=== PATIENT | female | born 1980 | race Caucasian/White ===

== ENCOUNTER → 2018-06-02 07:50 | Outpatient (CLI) | payer OTHER, SELFPAY ==
[2018-06-02 07:59] LABS: Basophils # 0.1 K/mm3 (0-0.2); Basophils % 0.9 % (0.1-2.0); Eosinophils # 0.2 K/mm3 (0.0-0.4); Eosinophils % 2.6 % (0.1-12.0); Hematocrit 40.2 % (37.0-47.0); Hemoglobin 13.5 g/dL (12.2-16.2); Lymphocytes # 1.6 K/mm3 (0.7-4.5); Lymphocytes % 25.8 % (10-50); Mean Corpuscular HGB Conc 33.5 g/dL (31.8-35.4); Mean Corpuscular Hemoglobin 31.3 pg (27.0-31.2); Mean Corpuscular Volume 93.4 fl (81-99); Mean Platelet Volume 7.1 fl (7.4-10.4); Monocytes # 0.2 K/mm3 (0.1-1.0); Monocytes % 3.4 % (1.7-9.3); Neutrophils % 67.3 % (37.0-80.0); Platelet Count 340 K/mm3 (142-424); Red Blood Count 4.31 M/mm3 (4.20-5.40); Red Cell Distribution Width 12.4 % (11.5-17.5)
[2018-06-02 09:23] LABS: Alanine Aminotransferase 37 U/L (12-78); Albumin Level 3.8 gm/dL (3.4-5.0); Alkaline Phosphatase 44 U/L (46-116); Anion Gap 17.1 mEq/L (5-15); Aspartate Amino Transferase 16 U/L (15-37); Bilirubin,Total 0.3 mg/dL (0.2-1.0); Blood Urea Nitrogen 11 mg/dL (7-18); Carbon Dioxide 25 mmol/L (21.0-32.0); Chloride 102 mmol/L (98-107); Chol/HDL Ratio 4.1 (1-3.5); Cholesterol 200 mg/dL (140-200); Creatinine,Serum 0.75 mg/dL (0.55-1.02); Estimated Glomerular Filt Rate 86 ml/min (>60); GFR (African American) 104 ML/MIN (>60); Globulin 3.8 gm/dl (1.3-3.2); Glucose 83 mg/dL (74-106); HDL Cholesterol 49 mg/dL (29-89); LDL Cholesterol 126 mg/dL (0-130); Potassium 4.1 mmoL/L (3.5-5.1); Sodium 140 mmol/L (136-145); T4 (Thyroxine) 7.8 ug/dl (4.7-13.3); Thyroid Stimulating Hormone 1.63 uIU/ml (0.358-3.740); Total Protein,Serum 7.6 gm/dL (6.4-8.2); Triglycerides 125 mg/dL (30-200); VLDL Cholesterol 25 mg/dL (0-40)
== END ==
PROVIDERS: Visit Provider Nurse Practitioner Family
DX: E66.9 Obesity, unspecified (principal)
CPT/HCPCS: 36415; 80053; 80061; 82652; 84436; 84443; 85025

== ENCOUNTER → 2018-06-08 19:03 | Outpatient (CLI) | payer OTHER, SELFPAY ==
[2018-06-08 22:23] LABS: Amphetamine/Metha Screen,Urine Negative ng/mL (<1000); Barbiturates Screen,Urine Negative ng/mL (<200); Benzodiazepines Screen,Urine Negative ng/mL (<200); Cannabinoid Screen,Urine Negative ng/mL (<50); Cocaine Screen,Urine Negative ng/mL (<300); Methadone Screen,Urine Negative ng/mL (<300); Opiate Screen,Urine Negative ng/mL (<300); Phencyclidine Screen,Urine Negative ng/mL (<25)
== END ==
PROVIDERS: Visit Provider Nurse Practitioner Family
DX: Z79.899 Other long term (current) drug therapy (principal)
CPT/HCPCS: 80305

== ENCOUNTER → 2018-06-13 08:14 | Outpatient (CLI) | payer OTHER, SELFPAY ==
--- NOTE | 2018-06-13 08:17 | US_ITS ---
ULTRASOUND THYROID HISTORY: Thyroid enlarged Follow-up thyroid nodule PROCEDURE: Multiple sagittal & transverse ultrasound images of the thyroid.. COMPARISON: 08/31/2014 thyroid ultrasound ----- FINDINGS: Thyroid gland upper normal in size bilaterally Single very small nodule bilaterally. Otherwise. Inhomogeneous gland , Borderline thyroid enlargement Thyroid gland upper normal size RIGHT LOBE: 4 cm length as 1.7 cm wide x 1.4 cm in AP Nodule A: Barely appreciable Vague solid nodule 4.3 mm at upper pole right lobe.. This is not appreciated are seen on previous study. . LEFT LOBE: 4 cm length x 1.5 cm wide x 1.4 cm AP Nodule A: Tiny 3.1 mm likely debris-filled cyst or or semisolid nodule. Midportion left lobe.- This seems to match the 3.75mm area noted on 2014 study. Small and can be followed.: ISTHMUS: Normal thickness. 4.1 mm AP. IMPRESSION 1. Borderline thyroid enlargement ... Thyroid gland upper normal size 2. Small vague 1.3 mm nodule upper pole right lobe. Small debris 3.1 mm filled cyst midportion left lobe
== END ==
PROVIDERS: PCP Nurse Practitioner Family; Visit Provider Nurse Practitioner Family
DX: E04.9 Nontoxic goiter, unspecified (principal)
CPT/HCPCS: 76536

== ENCOUNTER 2025-01-18 09:14 | Outpatient (CLI) | payer BC, SELFPAY ==
--- OUTSIDE RECORDS SUMMARY | 2024-12-24 20:00 | XMS_ITS | Encounter Summary ---
Author Name [facility] Organization [facility] Address [address] [place] [address] Support Name Relationship Address Phone IVELISSE JONES Next of Kin [phone] [address] IVELISSE JONES Emergency Contact [phone] [address] Selected Encounter This section includes the information on record at [place] for the Encounter. Date/Time Encounter Type Encounter Description Reason Pro vider Source Dec 25, 2024 12:00 AM Outpatient Encounter EVENT (HISTORICAL) IHE Encounter Template Text not used by [place]
--- OUTSIDE RECORDS SUMMARY | 2024-12-25 09:22 | XMS_ITS | Encounter Summary ---
Author Name [facility] [facility] [place] Address [address] [place] [address] Support Name Relationship Address Phone ROBERTIVELISSE Next of Kin [phone] [address] ROBERTIVELISSE Emergency Contact [phone] [address] Selected Encounter This section includes the information on record at [place] for the Encounter. Date/Time Encounter Type Encounter Description Reason Pro vider Source Dec 25, 2024 01:22 PM Outpatient Encounter TELEPHONE/MEDICINE IHE Encounter Template Text not used by [place] Encounter Notes: All associated encounter notes This section contains the clinical notes associated to the Encounter. Date/Time Encounter Note(s) Provider Source Dec 25, 2024 01:22 PM ADMINISTRATIVE NOT E: LOCAL TITLE: V9 [facility] ADMINISTRATIVE NOTE STANDARD TITLE: ADMINISTRATIVE NOTE DATE OF NOTE: DEC 25, 2024@13:22 ENTRY DATE: DEC 25, 2024@13:22:44 AUTHOR: IVELISSE ARAUZ EXP COSIGNER: URGENCY: STATUS: COMPLETED Toxic Exposure Screening: Attempts to contact [place]/caregiver to perform RY: 2 Contact type: Telephone-left message to call back Unsuccessful attempt to reach via phone to complete Toxic Exposure Screening Reminder in CPRS. HIPAA compliant message left with RY Contact Information. This is my second attempt to call to complete RY without success. /jimmy/ IVELISSE ARAUZ PHYSICIAN MACHINE SHOP INSTRUCTOR Signed: 12/25/2024 13:24 IVELISSE ARAUZ-CDD [facility]
--- OUTSIDE RECORDS SUMMARY | 2025-01-18 09:17 | XMS_ITS | Continuity of Care Document ---
Author Name [facility] Organization [facility] Care Team Providers Care Machine Adjuster Leader Case Trim Name Role Phone [facility] Unavailable Unavailable Problems Combined list of problems from Department of Defense and Veterans Affairs facilities. It does not include entries that were removed or entered in error. 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 Active Condition Pre-existing dx of Chron's Dz DoD visit: ears/hearing exam for hearing conservation, treatment Active Condition DoD NORMAL PRE-EMPLOYMENT SCREENING EXAMINATION Active Condition see 2807/2808 DoD visit for: services physical Active Condition DoD Allergies, Adverse Reactions, Alerts Combined list of allergies from Department of Defense and Veterans Affairs facilities. It does not include entries that were removed or entered in error. Substance Category Reaction Severity Reaction type Status Date Reported Comments Source No Known Allergies Drug allergy (disorder) active 10/25/2007 [facility] Encounters Combined list of: 1) Encounters from Department of Veterans Affairs facilities going backup to the last 18 months, not all [facility] inpatient encounters are included; 2) Encounters from the Department of Defense facilities going backup to 280 months. Location Location Details Encounter Type Encounter Number Reason For Visit Attending Provider ADM Date DC Date Status Disposition Source MARQUISE Rodrigues([facility]) OUTPATIENT [id number] BREEZY HENLEY 09/04 Released w/o Limitations [facility]) [facility] [id number] JUN OJEDA 09/04 Released w/o Limitations [facility] MARQUISE Rodrigues([facility]) OUTPATIENT [id number] PART 1 OF YOSELIN AKINS 09/04 Released w/o Limitations MARQUISE Rodrigues(Medi triny Examina tion) MARQUISE Rodrigues(Medica l Examin[facility] on) OUTPATIENT [id number] CONCHITA LAYNE 09/04 Released w/o Limitations [facility] [place](Medi triny Examina tion) [facility] Outpatient Encounter [id number] 10/25 [place] [facility] Outpatient Encounter [id number] 10/25 [place] [facility] Outpatient Encounter [id number] 12/25 [place] [facility] Outpatient Encounter [id number] 12/25 [place] [facility] Procedures Combined list of: 1) Procedures from Department of [facility] Affairs facilities [facility], not all [place] non-surgical procedures are included; 2) All procedures from the Department of Defense facilities. Procedure Procedure Type Code Date Perfomer Comments Sour e AUDIOMETRIC TESTING OF GROUPS 09/05/2007 [facility] SCREENING TEST OF VISUAL ACUITY, QUANTITATIVE, BILATERAL 09/05/2007 [facility] SCREENING PAPANICOLAOU SMEAR; OBTAINING, PREPARING AND CONVEYANCE OF CERVICAL OR VAGINAL SMEAR TO LABORATORY 07/07/2005 [facility] SCREENING TEST OF VISUAL ACUITY, QUANTITATIVE, BILATERAL 07/01/2005 [facility] ARTHROCENTESIS, ASPIRATION AND/OR INJECTION, SMALL JOINT OR BURSA (EG, FINGERS, TOES); WITHOUT ULTRASOUND GUIDANCE 04/14/2005 [facility] SCREENING PAPANICOLAOU SMEAR; OBTAINING, PREPARING AND CONVEYANCE OF CERVICAL OR VAGINAL SMEAR TO LABORATORY 04/10/2005 [facility] Audiometry Group Testing Audiometry Group Testing [id number] 09/05/2007 JUN OJEDA DoD Threshold Audiogram (Pure Tone) Threshold Audiogram (Pure Tone) [id number] 09/05/2007 JUN OJEDA DoD Screening Test Of Visual Acuity, Quantitative, Bilateral Screening Test Of Visual Acuity, Quantitative, Bilateral [id number] 09/05/2007 BREEZY WALDROP [facility] Social History Combined list of available smoking, tobacco, and other social history from Department of Defense and Veterans Affairs facilities. Social History Type Response Date Comment [facility] danelle This section is an empty social history section. DoD
--- OUTSIDE RECORDS SUMMARY | 2025-01-18 09:19 | XMS_ITS | Data Portability ---
Author Organization [facility] Address [address] [place] [address] Assessment Encounter Date Assessment Date Assessment LastModified by Organization Details LastModified Time 12/08/2022 12/08/2022 Reproductive life plan discussed. Patient does not plan to have children in the future. Not available 12/08/2022 19:16:51 Plan of Treatment Reminders Order Date Submit Date Provider Last Modified By Organization Details Last Modified Time Details Appointments ANNUAL NURSE LEADER 20 min 2024 03:00P M Guadalupe Almendarez APRN Not available Not available Not available Lab cytology report, thin prep, smear or scraping, cervical or vaginal 2023 024 [facility], [address] [place], [address], 01/21/2024 09:15:48 cytology report, thin prep, smear or scraping, cervical or vaginal 2022 023 ARN[facility], [address], [address], [place], [address], 12/10/2022 09:14:01 lh + FSH, serum 2021 022 ARNEL [facility], [address], [address], [place], [address], 02/28/2022 10:36:24 TSH + free T4, serum 2021 022 ARNEL [facility], [address] [place], [address], 02/28/2022 10:36:23 HbA1c (hemoglob in A1c), blood 2021 022 ARNEL [facility], [address], [address], [place], [address], 02/28/2022 10:36:24 insulin, serum 2021 022 ARNEL [facility], [address], [place], [address], 02/28/2022 10:36:25 Referral None recorded. Procedures None recorded. Surgeries None recorded. Imaging MAMMO, screening , bilateral - already scheduled 01/31/242023 024 [email or web address] [facility] ([facility]), [facility] [address], [place], [address], 02/23/2024 13:40:15 MAMMO, screening , bilateral 2022 023 [email or web address] [facility] ([facility]), [facility] [address], [place], [address], 02/11/2023 15:08:57 Medication Orders Lo Loestrin Fe 1 mg-10 mcg (24)/10 mcg (2) tablet 2023 024 ARNEL [facility], [address], [address], [place], [address], 01/18/2024 16:42:23 Lo Loestrin Fe 1 mg-10 mcg (24)/10 mcg (2) tablet 2023 024 ARNEL [facility], [address], [address], [place], [address], 08/31/2023 09:29:34 Lo Loestrin Fe 1 mg-10 mcg (24)/10 mcg (2) tablet 2022 023 ARNEL [facility], [address], [address], [place], [address], 06/01/2023 15:10:54 Lo Loestrin Fe 1 mg-10 mcg (24)/10 mcg (2) tablet 2022 023 [facility], [address] [place] [address], [place], [address], 06/01/2023 15:13:26 Patient TargetsNo targets recorded. Patient Instructions Encounter Date Encounter Id Patient Instructions Last Modified By Organization Details Last Modified Time 02/27/2022 [id number] Hormonal labs drawn today. Not available 03/02/2022 11:11:03 1. Treatment options for heavy menstrual bleeding and painful cycles discussed including regular dosed NSAIDS, initiating hormonal therapy, inserting a progestin releasing IUD, minor surgery (D&C, endometrial ablation) and major surgery (hysterectomy). Risks, benefits, and alternatives to all therapies discussed. She chooses expectant management. Follow up in May for ultrasound and possible endometrial bx if her cycle has not regulated on its own. 2. We will call abnormal test results in 7-10 days. Patient is advised that normal test results will be retrievable through [facility] and that they will be notified of the availability of normal results from [facility] by phone call, text or email. Not available 03/02/2022 11:10:48 12/08/2022 [id number] medical record request* - Please send most recent colonoscopy [email or web address] Not available 01/20/2023 11:20:32 1. Schedule screening mammogram at [facility]. 2. Get copy of most recent colonoscopy. Not available 12/08/2022 19:23:03 We will call abnormal test results in 7-10 days. Patient is advised that normal test results will be retrievable through [facility] Patient [facility] and that they will be notified of the availability of normal results from [facility] by phone call, text or email. Not available 12/08/2022 19:23:20 06/01/2023 [id number] 1. Treatment options for heavy menstrual bleeding and painful cycles discussed including regular dosed NSAIDS, initiating hormonal therapy, inserting a progestin releasing IUD, minor surgery (D&C, endometrial ablation) and major surgery (hysterectomy). Risks, benefits, and alternatives to all therapies discussed. She chooses oral contraceptives. Wednesday start instructions discussed. Office samples x 1 given. Follow up in 3 months. 2. Risks of hormonal control reviewed, including but not limited to thrombosis, embolism, pulmonary embolism, stroke, disability, sexual dysfunction & . Patient understands these risk are increased with smoking. Patient understands that these risks may be increased when using the patch (Ortho-Evra) or the vaginal ring (Nuva-Ring) when compared to oral control pills. Risks of bone loss with Depo Provera also reviewed. All questions answered. Pt understands & accepts risks. Instructions/warn ing signs given. Not available 06/01/2023 22:00:04 08/31/2023 [id number] Continue LoLoestrin. Follow up in November for annual obstetrician gynecologist exam. Not available 08/31/2023 09:36:45 01/18/2024 [id number] learning about healthy weight Not available 01/18/2024 17:03:15 body mass index: care instructions Not available 01/18/2024 17:03:15 1. Continue LoLoestrin. 2. Screening mammogram scheduled for January at [facility]. 3. Colonoscopy is current. Not available 01/18/2024 16:59:50 1. Risks of hormonal control reviewed, including but not limited to thrombosis, embolism, pulmonary embolism, stroke, disability, sexual dysfunction & . Patient understands these risk are increased with smoking. Patient understands that these risks may be increased when using the patch (Ortho-Evra) or the vaginal ring (Nuva-Ring) when compared to oral control pills. Risks of bone loss with Depo Provera also reviewed. All questions answered. Pt understands & accepts risks. Instructions/warn ing signs given. 2. We will call abnormal test results in 7-10 days. Patient is advised that normal test results will be retrievable through [facility] Patient Portal and that they will be notified of the availability of normal results from [facility] by phone call, text or email. Not available 01/18/2024 16:59:30 Reason for Referral None Reported. Results Created Date Observation Date Name Description Value Unit Range Abnormal Flag Note LastModifiedBy Organization Detail LastModifiedTime 02/28/2002/28/2022 TSH+F REE T4 TSH 1.690 uIU/m L 0.450- 4.500 Not Available [facility] ([facility]) [address] [place], [address], 02/28/2022 10:36:23 02/28/20 22 02/28/2022 TSH+F REE T4 T4,free(dire ct) 1.00 NG/dL 0.82-1 .77 Not Available [facility] ([facility]) [address] [place], [address], 02/28/2022 10:36:23 02/28/20 22 02/28/2022 FSH AND LH LH 55.1 mIU/m L Adult Femal e: Folli cular phase 2.4 - 12.6 Ovula tion phase 14.0 - 95.6 Lutea l phase 1.0 - 11.4 Postm enopa usal 7.7 - 58.5 Not Available [facility] ([facility]) [address] [place], [address], 02/28/2022 10:36:24 02/28/20 22 02/28/2022 FSH AND LH FSH 89.9 mIU/m L Adult Femal e: Folli cular phase 3.5 - 12.5 Ovula tion phase 4.7 - 21.5 Lutea l phase 1.7 - 7.7 Postm enopa usal 25.8 - 134.8 Not Available [facility] ([facility]) [address] [place], [address], 02/28/2022 10:36:24 02/28/20 22 02/28/2022 HEMOG LOBIN A1C hemoglobin A1C 5.3 % 4.8-5. 6 Predi abete s: 5.7 - 6.4 Diabe elvin: >6.4 Glyce becky contr ol for adult s with diabe elvin: <7.0 Not Available [facility] ([facility]) [address] [place], [address], 02/28/2022 10:36:24 02/28/20 22 02/28/2022 INSUL IN insulin 6.9 uIU/m L 2.6-24 .9 Not Available [facility] ([facility]) [address] [place], [address], 02/28/2022 10:36:25 12/09/19 23 12/10/2022 IGP, APTIM A HPV, RFX 16/18 ,45 diagnosis: Elise ROQUE FOR INTRA EPITH ELIAL SABRA Fine OR ABUNDIO BORDEN . Not Available [facility] ([facility]) [address] [facility], [place], [address], 12/10/2022 09:14:01 12/09/19 23 12/10/2022 IGP, APTIM A HPV, RFX 16/18 ,45 specimen adequacy: Elise siddiqui Satis facto ry for evalu ation . Endoc ervic al and/o r squam ous metap lasti c cells (endo cervi triny compo nent) are prese nt. Not Available [facility] ([facility]) [address] [facility], [place], [address], 12/10/2022 09:14:01 12/09/1912/10/2022 IGP, APTIM A HPV, RFX 16/18 ,45 clinician provided ICD10: Elise siddiqui Z12.4 Z11.8 Not Available [facility] ([facility]) [address] [place], [address], 12/10/2022 09:14:01 12/09/19 23 12/10/2022 IGP, APTIM A HPV, RFX 16/18 ,45 performed by: Elise fine, Cytot sebastian campa t (ASCP ) Not Available [facility] ([facility]) [address] [facility], [place], [address], 12/10/2022 09:14:01 12/09/1912/10/2022 IGP, APTIM A HPV, RFX 16/18 ,45 . . Not Available [facility] ([facility]) [address] [facility], [place], [address], 12/10/2022 09:14:01 12/09/1912/10/2022 IGP, APTIM A HPV, RFX 16/18 ,45 note: Commen t The Pap smear is a scree samanta test desig kindra to aid in the detec tion of eli ligna nt and malig nant condi tions of the uteri ne cervi x. It is not a diagn ostic proce dure and shoul d not be used as the sole means of detec ting cervi triny cance r. Both false -posi tive and false -nega tive repor ts do occur . Not Available [facility] ([facility]) [address] [facility], [place], [address], 12/10/2022 09:14:01 12/09/1912/10/2022 IGP, APTIM A HPV, RFX 16/18 ,45 test methodology: Commen t This liqui d based ThinP rep(R ) pap test was scree kindra with the use of an image guide reji systdanelle m. Not Available [facility] ([facility]) [address] [facility], [place], [address], 12/10/2022 09:14:01 12/09/1912/10/2022 IGP, APTIM A HPV, RFX 16/18 ,45 HPV aptima Negati ve negati ve This nucle ic acid ampli ficat ion test detec ts fourt een high- risk HPV types (16,1 8,31, 33,35 ,39,4 5,51, 52,56 ,58,5 9,66, 68) witho ut diffe renti ation . Not Available [facility] ([facility]) [address] [facility], [place], [address], 12/10/2022 09:14:01 12/09/1912/10/2022 IGP, APTIM A HPV, RFX 16/18 ,45 HPV genotype reflex Commen t Crite carlos not met, HPV Genot ype not perfo rmed. Not Available [facility] ([facility]) [address] [facility], [place], [address], 12/10/2022 09:14:01 01/18/20 24 01/20/2024 IGP, APTIM A HPV, RFX 16/18 ,45 HPV aptima Negati ve negati ve This nucle ic acid ampli ficat ion test detec ts fourt een high- risk HPV types (16,1 8,31, 33,35 ,39,4 5,51, 52,56 ,58,5 9,66, 68) witho ut diffe joseti ation . Not Available [facility] ([facility]) [address] [facility], [place], [address], 01/21/2024 09:15:48 01/18/20 24 01/21/2024 IGP, APTIM A HPV, RFX 16/18 ,45 diagnosis: Commen t NEGAT JUDE FOR INTRA EPITH ELIAL LESIO N OR ABUNDIO BORDEN . Not Available [facility] ([facility]) [address] [facility], [place], [address], 01/21/2024 09:15:48 01/18/20 24 01/21/2024 IGP, APTIM A HPV, RFX 16/18 ,45 specimen adequacy: Commen t Satis facto ry for evalu ation . No endoc ervic al compo nent is ident ified . Not Available [facility] ([facility]) [address] [facility], [place], [address], 01/21/2024 09:15:48 01/18/20 24 01/21/2024 IGP, APTIM A HPV, RFX 16/18 ,45 clinician provided ICD10: Elise siddiqui Z12.4 Z11.5 1 Z11.8 Z11.3 Not Available [facility] ([facility]) [address] [facility], [place], [address], 01/21/2024 09:15:48 01/18/20 24 01/21/2024 IGP, APTIM A HPV, RFX 16/18 ,45 performed by: Elise vail, Meño siddiqui (ASCP ) Not Available [facility] ([facility]) [address] [place], [address], 01/21/2024 09:15:48 01/18/20 24 01/21/2024 IGP, APTIM A HPV, RFX 16/18 ,45 . . Not Available [facility] ([facility]) [address] [facility], [place], [address], 01/21/2024 09:15:48 01/18/20 24 01/21/2024 IGP, APTIM A HPV, RFX 16/18 ,45 note: Elise siddiqui The Pap smear is a scree samanta test desig kindra to aid in the detec tion of eli ligna nt and malig nant condi tions of the uteri ne cervi x. It is not a diagn ostic proce dure and shoul d not be used as the sole means of detec ting cervi triny cance r. Both false -posi tive and false -nega tive repor ts do occur . Not Available [facility] ([facility]) [address] [facility], [place], [address], 01/21/2024 09:15:48 01/18/20 24 01/21/2024 IGP, APTIM A HPV, RFX 16/18 ,45 test methodology: Elise siddiqui This liqui d based ThinP rep(R ) pap test was scree kindra with the use of an image guide d syste m. Not Available [facility] ([facility]) [address] [facility], [place], [address], 01/21/2024 09:15:48 01/18/20 24 01/21/2024 IGP, APTIM A HPV, RFX 16/18 ,45 HPV genotype reflex Commen t Crite carlos not met, HPV Genot ype not perfo rmed. Not Available [facility] ([facility]) [address] [facility], [place], [address], 01/21/2024 09:15:48 01/27/20 23 01/25/2023 - scn dig breas t tomos yn philomena [facility] Name: COSME PÉREZ [facility] [employer] Phys: Edie salinas NP, [place] [address] : 1979 Age: 42 Sex: F Acct: [id number] Loc: G.MAMM PHONE #: Exam Date: 2022 Status : DEP CLI FAX #: Rad# [id number] Unit# [id number] Admit Date: 2022 EXAMS: CPT CODE: [id number] SCN DIG BREAST TOMOSY N PHILOMENA 46189 BILATE RAL DIGITA L SCREEN ING MAMMOG CAROLA WITH CAD AND 3 D Tomosy nthesi s Person al histor y of Breast Cancer : None Family histor y of Breast Cancer : Patern al grandm other, patern al aunt and patern al cousin s Compla ints: None Compar clemencia: Multip le prior studie s. TECHNI QUE: Bilate ral digita l mammog tiffani and CAD screen ing were perfor med by Alfreda Colvin RTM. 3-D Tomosy nthesi s imagin g was also perfor med. FINDIN GS: These images demons trate a type III breast parenc hymal patter n indica ting the breast s are hetero geneou sly dense which may lower the sensit ivity of mammog tiffani. No worris ome lesion s are identi fied in either breast . IMPRES JESUSITA: Negati ve. Recomm end annual screen ing, regula r self breast examin ation and regula r clinic al breast exam. (CAT1) - CATEGO RY 1, NEGATI VE (1 YR) -1 YEAR -In the patien t with a palpab le abnorm ality, unexpl ained by breast imagin g, the palpab le abnorm ality should be manage d on a clinic al basis by the attend ing clinic minesh. -Breas t imagin g as a false negati ve rate of approx imatel y 15%. -Patie nt was notifi ed by mail of the result s of this examin ation. Patisigrid t may be called if furthe r workup is indica abdulaziz. -The patien t's inform ation was entere d into a remind er system with a target due date for the next mammog carola. -This mammog carola was review ed by a radiol ogist and CAD. This report is genera abdulaziz using voice recogn ition comput er softwa re. Inadve rtent errors may have occurr ed while dictat ing report . Common sense approa ch is apprec iated and do not hesita te to call for clarif icatio n when necess olya. 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 CC: Max García MD; [place] Dictat ed Date/T william: 2022 (1646) Techno logist : ALFREDA COLVIN (RT)(R ) Transc ribed Date/T william: 2022 (1646) Transc riptio nist: DR.HAR SISSY Rahman onic Signat ure Date/T william: 2022 (1646) Printe d Date/T william: 2022 (2935) BATCH NO: N/A PAGE 2 Signed Report CC'ed Logic: Orderi ng Provid er: EDIE Gant Attend ing Provid er: EDIE Gant Referr ing Provid er: EDIE Gant Consul ting Provid er: BILLY Fine [address] , [place], [address], 01/27/2023 09:29:41 02/01/20 24 01/31/2024 - scn dig breas t tomos yn philomena [facility] Name: COSME PÉREZ [address] [place] [address] Phys: Edie salinas 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 No breast proble ms. Sheree al grandm other, sheree al aunt, and 2 sheree al cousin s with breast carcin tiffanie Correl ation is made with prior mammog mata nichols from 023 to 11/01/19 19. FINDIN GS: Bilate ral digita l MLO and CC views with CAD and 3D tomosy nthesi s were perfor med by Sarah siddiqui RT. These demons trate scatte red fibrog landul ar densit ies, unchan ged in config uratio n from prior exams. There is no domina nt mass, aly ectura l distor tion, or suspic ious calcif icatio n, bilate rally. IMPRES JESUSITA: STABLE NEGATI VE MAMMOG MATA. RECOMM END ANNUAL SCREEN ING MAMMOG TIFFANI. CAT1 - CATEGO RY 1, NEGATI VE 1YR - 1 YEAR DISCLA DON: *The patien t with a palpab le abnorm ality, unexpl ained by breast imagin g, should be manage d on clinic al basis by the attend ing physic minesh. *Kaitlin siddiqui imagin g has a false negati ve rate of 15%. *The patien t was notifi ed by mail of the result s of this examin ation. *The patien t's inform ation was entere d into a remind er system with a target due date for the next mammog carola. *The mammog carola was review ed by a radiol ogist and CAD. 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, [place] [address] : 1979 Age: 43 Sex: F Acct: [id number] Loc: G.MAMM PHONE #: [phone] Exam Date: 2023 Status : DEP CLI FAX #: Rad# [id number] Unit# [id number] Admit Date: 2023 EXAMS: CPT CODE: [id number] SCN DIG BREAST TOMOSY N PHILOMENA 63115 CC: NO PRIMAR Y CARE PHYSIC MINESH; [place] sal[place] Dictat ed Date/T william: 2023 (1832) Techno logist : SARAH DURANET T Transc ribed Date/T william: 2023 (1831) Transc riptio nist: DR.HAG ZAKI garcia Signat ure Date/T william: 2023 (1831) Printe d Date/T william: 2023 (830) BATCH NO: N/A PAGE 2 Signed Report CC'ed Logic: Orderi ng Provid er: EDIE Reji FOX A Attend ing Provid er: EDIE D MELISS A Referr ing Provid er: EDIE Reji MELISS A Consul ting Provid er: PHYSIC MINESH NO [address] , [place], [address], 02/03/2024 15:55:51 Result Notes None recorded. Problems Name Problem SNOMED Code Status Onset Date Resolution Date Notes Provider Name and Address Organization Details Recorded Time Crohn's disease 52175341 Active 2016 Erma Garcia [place], [place] - [facility] 7 11:12:41 Uses oral contracep tion 6025903 Completed 201612/08/2022 Removal Reason: stopped Guadalupe Almendarez [employer]ER[employer] TE[employer]ER [address], [place], [address], [place] - [facility] 3 09:11:12 Long-term current use of immunosup pressive drug 760407507 Active 2023 Guadalupe AlmendarezGORDY [address], [place], [address], [place] - [facility] 4 16:58:40 Problem Notes None recorded. Procedures Surgical History Date Name Laterality Status Provider Name and Address Organization Details Recorded Time 4 Date of Last Mammogram completed Guadalupe PearsonPRISCA del castilloN [address], [place], [address], [place] - [facility] 02/03/2024 12:21:11 4 Date of Last Pap Smear completed Guadalupe PearsonPRISCA del castilloN [address], [place], [address], [place] - [facility] 01/23/2024 22:03:53 4 Date of Last Colonoscopy completed Erma CAMARILLO - [facility] 01/18/2024 16:00:55 1 completed Guadalupe Almendarez APRN [address], [place], [address], [place] - [facility] 02/18/2023 10:12:10 4 Caesarean Section completed Erma CAMARILLO - [facility] 09/25/2016 09:18:11 4 Tubal Ligation completed Erma CAMARILLO - [facility] 09:18:23 Orthopedic Surgery completed Erma CAMARILLO - [facility] 09/24/2016 11:21:43 Cryocautery of cervix completed Erma CAMARILLO - [facility] 09/24/2016 11:21:55 Imaging Results None recorded. Procedure Notes None recorded. Medical Equipment None Reported. Allergies No known drug allergies Medications Name Sig Start Date Stop Date Status Note LastModified by Organization Details LastModified Time albuterol sulfate 2.5 mg/3 mL (0.083 %) solution for nebulizat ion 08/30 completed Not Available Not Available Not Available trazodone 50 mg tablet as heeded active Not Available Not Available No t Available fluconazo le 150 mg tablet take 1 tablet (150 mg) by oral route every other day for 2 doses 10/01 completed Not Available Not Available Not Available prednison e 20 mg tablet 10/01 completed Not Available Not Available Not Available Remicade 100 mg intraveno us solution q 2 months 10/23 completed Remicade 100 mg intraven ous recon soln;com ment: med change;R ecorded Status: Recorded on: 03/31/20 08 10:05PM; Disconti nued Status: Disconti nued on: 10/24/19 09 11:31AM; User: roseanna Not Available Not Available Not Available Synalar 0.025 % topical cream apply to the affected area(s) by topical route 2 times per day for 14 days 08/22 completed Synalar 0.025 % topical cream;Re corded Status: Recorded on: 08/22/19 16 9:26AM;D iscontin ued Status: Disconti nued on: 08/22/19 16 9:57AM;U ser: [email or web address]; Est. Completi on: 09/05/19 16 Not Available Not Available Not Available amoxicill in 875 mg tablet 10/01 completed Not Available Not Available Not Available oseltamiv ir 75 mg capsule 08/30 completed Not Available Not Available Not Available polyethyl keisha glycol 3350 17 gram/dose oral powder 10/01 completed Not Available Not Available Not Available scopolami ne 1 mg over 3 days transderm al patch 06/01 completed Not Available Not Available Not Available ondansetr on 4 mg disintegr ating tablet 10/01 completed Not Available Not Available Not Available cefdinir 300 mg capsule 10/01 completed Not Available Not Available Not Available Asacol 400 mg tablet,de layed release 10/18 completed Asacol 400 mg;Recor ded Status: Recorded on: 03/31/20 08 10:04PM; Disconti nued Status: Disconti nued on: 10/19/19 12 3:42PM;U ser: [email or web address] Not Available Not Available Not Available Sprintec (28) 0.25 mg-0.035 mg tablet take 1 tablet by oral route once daily for 28 days 09/01 completed Sprintec (28) 0.25-35 mg-mcg oral tablet;R ecorded Status: Recorded on: 08/22/19 16 9:46AM;D iscontin ued Status: Disconti nued on: 09/02/19 16 10:48AM; User: [email or web address] ;Est. Completi on: 08/20/19 17;Indic ation: Pregnanc y Contrace ption - ([id number].[id number]);Prin abdulaziz: 08/22/19 16 Not Available Not Available Not Available TriNessa (28) 0.18 mg(7)/0.2 15 mg(7)/0.2 5 mg(7)-35 mcg tablet 1 po qd 10/24 completed TriNessa (28) 0.18/0.2 15/0.25 mg-35 mcg (28) oral tablet;R ecorded Status: Recorded on: 03/31/20 08 10:05PM; Disconti nued Status: Disconti nued on: 10/25/19 10 2:25PM;U ser: [email or web address] Not Available Not Available Not Available Canasa 1,000 mg rectal supposito ry 10/20 completed Canasa 1,000 mg rectal supposit ory;Jd rded Status: Recorded on: 10/19/19 12 3:42PM;D iscontin ued Status: Disconti nued on: 10/21/19 13 9:03AM;U ser: [email or web address] Not Available Not Available Not Available Humira Pen 40 mg/0.8 mL subcutane ous kit inject 0.8 millilit er (40 mg) by subcutan eous route every 2 weeks active Not Available Not Available No t Available Jolessa 0.15 mg-30 mcg (91) tablets,3 month dose pack take 1 tablet by oral route once daily for 84 days 10/20 completed Jolessa 0.15-30 mg-mcg oral tablets, dose pack,3 month;Re corded Status: Recorded on: 10/19/19 12 4:03PM;D iscontin ued Status: Disconti nued on: 10/21/19 13 8:56AM;U ser: [email or web address] ; Completi on: 09/20/19 13;Print ed: 10/19/19 12 Not Available Not Available Not Available Lialda 1.2 gram tablet,de layed release take 2 tablets (2.4 gram) by oral route once daily with a meal 12/24 completed Lialda 1.2 gram oral tablet,d elayed release (/EC); Recorded Status: Recorded on: 10/19/19 12 3:42PM;D iscontin ued Status: Disconti nued on: 12/25/19 15 12:01PM; User: [email or web address] Not Available Not Available Not Available LoSeasoni que 0.1 mg-20 mcg (84)/10 mcg (7) tablets,3 month dose pack Take 1 tablet every day by oral route. 01/04 completed Not Available Not Available Not Available GaviLyte- N 420 gram oral solution 10/01 completed Not Available Not Available Not Available sodium,po tassium,m ag sulfates 17.5 gram-3.13 gram-1.6 gram oral soln take as directed by Dr. Ricci's office 01/17 completed Not Available Not Available Not Available Lo Loestrin Fe 1 mg-10 mcg (24)/10 mcg (2) tablet Take 1 tablet every day by oral route for 28 days. 2024 active Not Available Not Available Not Avai lable Camrese 0.15 mg-30 mcg (84)/10 mcg(7) tablets,3 month dose pack TAKE 1 TABLET BY MOUTH EVERY DAY 02/27 completed Not Available Not Available Not Available Vitals Date Recorded Body height Body mass index (BMI) Body weight Pain severity - 0-10 verbal numeric rating [Score] - Reported Systolic And Diastolic Provider Name and Address Organization Details Last Updated DateTime 08/31/2023 154.94 cm 29.3 kg/m2 93450.82 g 0 120/70 mm[Hg] Erma Garcia [facility] 4 09:20:17 Date Recorded Body height Body mass index (BMI) Body weight Pain severity - 0-10 verbal numeric rating [Score] - Reported Systolic And Diastolic Provider Name and Address Organization Details Last Updated DateTime 12/08/2022 154.94 cm 28.9 kg/m2 89940.35 g 0 120/70 mm[Hg] Erma Garcia [facility] 3 08:56:25 Date Recorded Body height Body mass index (BMI) Body weight Pain severity - 0-10 verbal numeric rating [Score] - Reported Systolic And Diastolic Provider Name and Address Organization Details Last Updated DateTime 01/18/2024 154.94 cm 30.2 kg/m2 28957.78 g 0 114/70 mm[Hg] Erma Garcia [facility] 4 16:04:56 Date Recorded Body height Body mass index (BMI) Body weight Systolic And Diastolic Provider Name and Address Organization Details Last Updated DateTime 02/27/2022 154.94 cm 30.2 kg/m2 30105.78 g 114/60 mm[Hg] Alison Alvarez [facility] 02/27/2022 10:48:20 Date Recorded Body height Body mass index (BMI) Body weight Pain severity - 0-10 verbal numeric rating [Score] - Reported Systolic And Diastolic Provider Name and Address Organization Details Last Updated DateTime 06/01/2023 154.94 cm 28.2 kg/m2 28288.26 g 0 114/70 mm[Hg] Erma Garcia [place] - [facility] 14:44:46 Social History Question Answer Notes LastModified by Organizat ion Details LastModified Time Tobacco Smoking Status Never Smoker Erma ge, [place] - [facility] 09/24/2016 11:19:13 Do You Have An Advance Directive? No [email or web address] Information not available 09/24/2016 Are You Blind Or Do You Have Difficulty Seeing? No Information not available 12/08/2022 Is Blood Transfusion Acceptable In An Emergency? Yes [email or web address] Information not available 09/24/2016 What Is Your Level Of Caffeine Consumption? Occasional [email or web address] Information not available 09/24/2016 How Much Tobacco Do You Chew? None [email or web address] Information not available 09/24/2016 In The 14 Days Before Symptom Onset, Have You Had Close Contact With A Laboratory-confir med COVID-19 While That Case Was Ill? No Information not available 12/08/2022 In The 14 Days Before Symptom Onset, Have You Had Close Contact With A Person Who Is Under Investigation For COVID-19 While That Person Was Ill? No Information not available 12/08/2022 Have You Been To An Area Known To Be High Risk For COVID-19? No Information not available 12/08/2022 Are You Deaf Or Do You Have Serious Difficulty Hearing? No [email or web address] Information not available 09/24/2016 What Type Of Diet Are You Following? REGULAR [email or web address] Information not available 09/24/2016 Which Illicit Or Recreational Drugs Have You Used? None [email or web address] Information not available 09/24/2016 Have You Processed Blood Or Body Fluids From An Ebola Virus Disease Patient Without Appropriate PPE? No Information not available 12/08/2022 Do You Reside In Or Have You Traveled To An Area Where Ebola Virus Transmission Is Active? No Information not available 12/08/2022 What Is The Highest Grade Or Level Of School You Have Completed Or The Highest Degree You Have Received? [id number] [email or web address] Information not available 10/01/2017 How Many Days Of Moderate To Strenuous Exercise, Like A Brisk Walk, Did You Do In The Last 7 Days? 5 Information not available 12/08/2022 On Those Days That You Engage In Moderate To Strenuous Exercise, How Many Minutes, On Average, Do You Exercise? 60 Information not available 12/08/2022 Have There Been Any Changes To Your Family Or Social Situation? No Information no t available 12/08/2022 How Hard Is It For You To Pay For The Very Basics Like Food, Housing, Medical Care, And Heating? Not Very Hard Information not available 12/08/2022 What Is The Fluoride Status Of Your Home? Unknown Information not available 12/08/2022 Have You Recently Or Are You Planning To Travel To An Area With Zika Virus? No Information not available 12/08/2022 Live Alone Or With Others? With Others Information not available 12/08/2022 Last Menstrual Period? 01/04/2024 [email or web address] Information not available 01/18/2024 Do You Have A Medical Power Of Fluid Pump Operator? No [email or web address] Information not available 01/18/2024 What Was The Date Of Your Most Recent Tobacco Screening? 01/18/2024 [email or web address] Information not available 01/18/2024 How Many Children Do You Have? 1 [email or web address] Information not available 09/24/2016 Performs Monthly Self-breast Exam? Yes Information no t available 12/08/2022 Do You Use Protection During Sex? Always BCP Information not available 12/08/2022 Do You Use Protection Against STDs? No [email or web address] Information not available 10/10/2021 What Is Your Relationship Status? [email or web address] Information not available 09/24/2016 Do You Use Your Seat Belt Or Car Seat Routinely? Yes [email or web address] Information not available 12/08/2022 Seat Belts Used Routinely Yes Information not available 12/08/2022 Are You Sexually Active? Yes [email or web address] Information not available 09/24/2016 Do You Have Smoke And Carbon Monoxide Detectors In Your Home? Yes [email or web address] Information not available 10/10/2021 Are You Passively Exposed To Smoke? No Information no t available 10/10/2021 How Much Tobacco Do You Smoke? No Information not available 12/08/2022 General Stress Level Medium Information not available 12/08/2022 Do You Use Sunscreen Routinely? Yes [email or web address] Information not available 09/24/2016 Has Tobacco Cessation Counseling Been Provided? Yes [email or web address] Information not available 06/01/2023 On What Date Was Tobacco Cessation Counseling Provided? 01/18/2024 Information not available 01/18/2024 Do You Have Difficulty Walking Or Climbing Stairs? No Information not available 12/08/2022 What Contraceptive Method Was Reported At Start Of This Visit? Combined Oral Contraceptive Pills Information not available 12/08/2022 What Contraceptive Method Was Reported At End Of This Visit? Combined Oral Contraceptive Pills Information not available 12/08/2022 Do You Want To Talk About Contraception Or Prevention During Your Visit Today? No - I Do Not Want To Talk About Contraception Today Because I Am Here For Something Else Information not available 12/08/2022 Do You Have Any Future Plans To Get ? No, I Don't Want To Become Information not available 12/08/2022 Sex: Female Functional Status Question Answer Note LastModified by Organizat ion Details LastModified Time Do you or have you ever used smokeless tobacco? Never used smokeless tobacco [email or web address] Information not available 10/09/2019 Are you currently employed? Yes [email or web address] Information not available 09/24/2016 Do you have transportation difficulties? No Information not available 12/08/2022 Are you able to care for yourself? Yes [email or web address] Information n ot available 10/10/2021 Do you have difficulty dressing or bathing? No Information not available 12/08/2022 Do you or have you ever used e-cigarettes or vape? Never used electronic cigarettes Information not available 10/09/2019 What is your exercise level? Occasional [email or web address] Information not available 09/24/2016 Do you use any illicit or recreational drugs? No [email or web address] Information not available 12/08/2022 Do you or have you ever used any other forms of tobacco or nicotine? No Information not available 12/08/2022 What is your level of alcohol consumption? None [email or web address] Information not available 09/24/2016 What is your status? Not Information no t available 12/08/2022 Are you able to walk? [email or web address] Information not available 12/08/2022 Do you have difficulty doing errands alone? 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 [id number] [email or web address] Information not available 10/01/2017 Do you have difficulty concentrating, remembering or making decisions? No Information no t available 12/08/2022 Family History Relationship Description Onset Age of this Age Resolved Age Notes LastModified by Organization Details LastModified Time Maternal Aunt Malignant tumor of breast 80 Not available 2022 09:13:01 Maternal Aunt Kidney disease [email or web address] Not available 2016 11:18:55 Paternal Grandmother Malignant tumor of breast 70 Not available 2022 09:13:01 Unspecified Relation Malignant tumor of colon [email or web address] Not available 2016 11:17:40 Unspecified Relation Malignant tumor of breast cousin - 40's anothe r cousin in 50 [email or web address] Not available 09/24/2016 11:18:12 Paternal Grandfather Neoplasm of stomach [email or web address] Not available 2023 15:28:13 Maternal Uncle Heart disease Not available 2022 09:13:01 Father Cerebrovascu lar accident 62 Not available 09:13:01 Paternal Aunt Malignant tumor of breast Not available 2022 09:13:01 Paternal Uncle Heart disease 56 [email or web address] Not available 2023 15:28:13 Medical History Condition Response Pancreatitis N Other N Atrial Fibrillation N congenital heart disease N Blood Diseases N Hyperthyroidism N Rheumatoid arthritis N Blood Transfusion N Erectile Dysfunction N amputation N Skin Lesions N Depression N Pneumonia N Incontinence N Murmur N Edema N Alzheimer's Disease N Migraine Headaches N Tobacco Abuse N Anxiety Disorder N Hemorrhoids N Obesity N Vision or Eye Problems N Arthritis N Restless Leg Syndrome N Polyps N Infertility N Carpal Tunnel N Acid Reflux (GERD) N Cancer N Varicosities N Stroke N Tendonitis N Crohn's Disease Y Hypercholesterolemia N Skin Cancer N Headaches N Fibromyalgia N Irritable Bowel Syndrome N Anal Fissure N Kidney Disease N Heart Problems N Hospitalizations Y Gallstones N Kidney or Bladder Problems N Goiter N Acne N Eating Disorder N Arthur's Esophagus N Hypertriglyceridemia N Constipation N Embolism N Vitamin B12 Deficiency N Deviated Septum N AIDS/HIV N Myocardial Infarction N Asthma N Mitral Valve Disorders N Vertigo N Hepatitis N Thyroid Cancer N Neuropathy N History of DVT N Herniated Disc N Chicken Pox Y Von Willebrands Disease N Thrombophilias N Breast Cancer N Hernia N Plantar Fasciitis N Hypothyroidism N Lung Disease N Defects or Inherited Disease N Breast Problem N Ovarian Cyst N Anesthesia Complications N Testosterone Deficiency N Interstitial Cystitis N Congenital Anomalies N Hypoglycemia N Blood clot N Vitamin D Deficiency N Cellulitis N Endometriosis N Bladder or Kidney Problems N Fracture N Colorectal Cancer N Panic Disorder N Schizophrenia N Concussion N Spina Bifida N Osteoarthritis N Parkinson's Disease N Disc Protrusion N STI N Esophagitis N Angina N Thyroid Problems N GI Problems N ADD/ADHD N Anemia N Multiple Sclerosis N Abnormal PAP N Lumbago N Mental Illness N Psychiatric Illness N Diabetes N Ovarian Cancer N Degenerative Disc Disease N Seizures/Epilepsy N Hyperlipidemia N Syncope N Insomnia N Eczema N Abuse/Domestic Violence N Attention Deficient Disorder N Dementia N Ulcerative colitis N Cerebrovascular Disease N Depression N Guillain-[place] N Sleep Apnea N Aneurysm N Bronchitis N Heart Disease N Hypertension N Pre-Eclampsia N Suicidal Ideation N Osteoporosis N Gynecological History Statement/Question Response Date of Last Mammogram 01/31/2024 Flow Moderate Date of LMP 01/07/2024 Post Menopausal Bleeding N STIs/STDs N Last Lipids Family Doc Date of Last Colonoscopy 01/04/2024 Last [facility] Ovarian U/S Screening never Desired Control Method Sterilizati on Abnormal Pap Y On BCP's at Conception? Y HPV Vaccine N Duration of Flow (days) 8 Age at Menarche 7 Current Control Method Tubal Ligat ion Age at First Child 33 Last Annual Exam/Provider 7-23-24/MAR Frequency of Cycle (Q days) 21 Most Recent Bone Density Sexually Active? Y Date of Last Cervical Culture 12/24/2014 Menses Monthly N Date of Last Pap Smear 01/18/2024 Sexual Problems? N LMP Approximate 06/04/2021 Hormone Replacement Therapy N Obstetrics History GPAL:G 1 P 1 0 0 0 Type Value Full Term 1 Living 0 Total 1 Immunizations Vaccine Type Date Status Note Provider Nam e and Address Organization Details Recorded Time pneumococcal, unspecified formulation 1 completed Not Available [facility] 06/01/2023 14:25:22 Influenza, split virus, quadrivalent, preservative 1 completed Not Available [facility] 06/01/2023 14:25:22 COVID-19, mRNA, LNP-S, PF, 30 mcg/0.3 mL dose 0 completed Not Available [facility] 06/01/2023 14:25:22 COVID-19, mRNA, LNP-S, PF, 30 mcg/0.3 mL dose 1 completed Not Available [facility] 06/01/2023 14:25:22 COVID-19, mRNA, LNP-S, PF, 30 mcg/0.3 mL dose 1 completed Guadalupe Almendarez APRN [address], [place], [address], [place] - [facility] 12/08/2022 09:14:01 COVID-19, mRNA, LNP-S, PF, 30 mcg/0.3 mL dose, lizzy-sucrose 2 completed Guadalupe Almendarez APRN [address], [place], [address], [place] - [facility] 12/08/2022 09:14:01 COVID-19, mRNA, LNP-S, bivalent, PF, 30 mcg/0.3 mL dose 2 completed Guadalupe Almendarez APRN [address], [place], [address], [place] - [facility] 12/08/2022 09:14:01 Hep A, adult 9 completed Guadalupe Almendarez APRN [address], [place], [address], [place] - [facility] 12/08/2022 09:14:01 Hep A, adult 8 completed Guadalupe Almendarez, INHALATION THERAPY TEACHER [address], [place], [address], [facility] - [facility] 12/08/2022 09:14:01 Influenza, split virus, quadrivalent, PF 0 completed Guadalupe Almendarez, INHALATION THERAPY TEACHER [address], [place], [address], [facility] - [facility] 12/08/2022 09:14:01 COVID-19, mRNA, LNP-S, PF, 50 mcg/0.5 mL 3 completed Erma ge, [facility] 08/31/2023 09:14:31 Tdap 3 completed Erma ge, [facility] 08/31/2023 09:14:31 Past Encounters Encounter ID Performer Location Encounter Start Date Encounter Closed Date Diagnosis/Indication Diagnosis SNOMED-CT Code Diagnosis ICD10 Code Diagnosis Note [id number] [facility] [address] [place] [address] 09/15/2007 00:00:00 [id number] [facility] [address] [place] [address] 10/23/2008 00:00:00 [id number] [facility] [address] [place] [address] 10/23/2009 00:00:00 [id number] [facility] [address] [place] [address] 08/17/2006 00:00:00 [id number] [facility] [address] [place] [address] 09/15/2007 00:00:00 [id number] [facility] [address] [place] [address] 10/24/2010 00:00:00 [id number] [facility] [address] [place] [address] 10/19/2011 00:00:00 [id number] [facility] [address] [place] [address] 10/20/2012 00:00:00 [id number] [facility] [address] [place] [address] 12/24/2014 00:00:00 [id number] [facility] [address] [place] [address] 08/22/2015 00:00:00 [id number] GORDY Lin APPLICATION INTEGRATION SPECIALIST [address] [place] [address] [place] [id number] 09/25/2016 08:46:51 09/25/2016 09:57:36 Routine gynecologic examination done 8078972382 9101 Z01.419 Examinatio n of blood pressure 573352297 Z01.30 BP goal < 140/90 Depression screening 171 805083 Z13.89 Diet education 51074240 Z71.3 0980-7037 calorie diet recommende d with emphasis on low saturated fat, low carbohydra te, and adequate protein intake. She declines dietary consult. Counseling 090313102 Z71 .9 Exercise counseltara nichols. Patient encouraged to exercise 30 minutes 5 days a week. Vaccine de clined by patient 1101383443 02 Z28.21 Surveillan ce of oral contraception done 2126253793 18241 Z30.41 Screening for malignant neoplasm of cervix 436092653 Z12.4 History of tubal ligation 290236279 Z98.51 Obese 349879872 E66.9 Body mass index 30+ - obesity 193541380 Z68.31 [id number] GORDY Lin APPLICATION INTEGRATION SPECIALIST [address] [facility] [place] [id number] 10/01/2017 08:53:29 10/01/2017 09:39:16 Routine gynecologic examination done 3172987265 9101 Z01.419 Examinatio n of blood pressure 476203574 Z01.30 BP goal < 140/90 Depression screening 171 323866 Z13.89 Diet education 01171682 Z71.3 6526-2967 calorie diet recommende d with emphasis on low saturated fat, low carbohydra te, and adequate protein intake. She declines dietary consult. Counseling 879634262 Z71 .9 Exercise counsellin g. Patient encouraged to exercise 30 minutes 5 days a week. Vaccine de clined by patient 2962434761 02 Z28.21 Screening for malignant neoplasm of cervix 764154247 Z12.4 Z11.51 Z11.8 Body mass index 30+ - obesity 580297424 Z68.30 History of tubal ligation 025645427 Z98.51 Crohn's disease 21269076 K50.90 Surveillan ce of oral contraception done 7030761127 12728 Z30.41 [id number] Guadalupe Almendarez [facility] APPLICATION INTEGRATION SPECIALIST [address] [place] [address] [place] [address] 10/03/2018 10:08:52 10/03/2018 11:06:11 Routine gynecologic examination done 1719768235 9101 Z01.419 Examinatio n of blood pressure 392169534 Z01.30 BP goal < 140/90 Depression screening 171 479821 Z13.31 Diet education 53953150 Z71.3 7077-6334 calorie diet recommende d with emphasis on low saturated fat, low carbohydra te, and adequate protein intake. She declines dietary consult. Counseling 957822850 Z71 .82 Exercise counsellin g. Patient encouraged to exercise 30 minutes 5 days a week. Screening for malignant neoplasm of cervix 418462911 Z12.4 Z11.8 Surveillan ce of oral contraception done 1136707564 90332 Z30.41 Crohn's disease 70359948 K50.90 Body mass index 30+ - obesity 697332533 Z68.30 Screening mammography 24 295133 Z12.31 [id number] Guadalupe Almendarez [facility] APPLICATION INTEGRATION SPECIALIST [address] [place] [address] [place] [id number] 10/09/2019 14:28:44 10/09/2019 15:39:01 Routine gynecologic examination done 5267742871 9101 Z01.419 Examinatio n of blood pressure 562990203 Z01.30 BP goal < 140/90 Depression screening 171 992969 Z13.31 Diet education 30168632 Z71.3 1924-4536 calorie diet recommende d with emphasis on low saturated fat, low carbohydra te, and adequate protein intake. She declines dietary consult. Counseling 148044794 Z71 .82 Exercise counsellin g. Patient encouraged to exercise 30 minutes 5 days a week. Screening for malignant neoplasm of cervix 127901844 Z12.4 Z11.8 Screening mammography 24 885589 Z12.31 Surveillan ce of oral contraception done 1904690168 59722 Z30.41 for dysmenorrh ea History of dysplasia of cervix 674441628 Z87.410 Crohn's disease 92499552 K50.90 Body mass index 30+ - obesity 977852724 Z68.32 History of tubal ligation 270516012 Z98.51 [id number] Guadalupe Almendarez APRN [place] APPLICATION INTEGRATION SPECIALIST [address] [place] [address] [place] [address] 10/11/2020 08:46:40 10/11/2020 09:19:13 Routine gynecologic examination done 9240754138 9101 Z01.419 Examinatio n of blood pressure 899704587 Z01.30 BP goal < 140/90 Depression screening 171 711909 Z13.31 Diet education 04559517 Z71.3 1688-5145 calorie diet recommende d with emphasis on low saturated fat, low carbohydra te, and adequate protein intake. She declines dietary consult. Counseling 187827701 Z71 .82 Exercise counsellin simone. Patient encouraged to exercise 30 minutes 5 days a week. Screening for malignant neoplasm of cervix 112171607 Z12.4 Z11.8 Crohn's disease 49446234 K50.90 Surveillan ce of oral contraception done 4502846870 75519 Z30.41 for dysmenorrh ea History of tubal ligation 905613790 Z98.51 Screening mammography 24 359552 Z12.31 History of dysplasia of cervix 996977095 Z87.410 Body mass index 25-29 - overweight 913480682 Z68.29 [id number] Guadalupe Almendarez APRN [place] APPLICATION INTEGRATION SPECIALIST [address] [place] [address] [place] [id number] 10/10/2021 09:57:53 10/10/2021 11:05:23 Routine gynecologic examination done 5300742823 9101 Z01.419 Examinatio n of blood pressure 052943677 Z01.30 BP goal < 140/90 Depression screening 171 493440 Z13.31 Diet education 88594161 Z71.3 9775-0817 calorie diet recommende d with an emphasis on reducing sugar and refined carbohydra elvin, avoiding highly processed foods and decreasing saturated fats. She declines dietary consult. Counseling 596062716 Z71 .82 Exercise counseltara nichols. Patient encouraged to exercise 30 minutes 5 days a week. Screening mammography 24 416688 Z12.31 Screening for malignant neoplasm of cervix 786616478 Z12.4 Z11.8 Surveillan ce of oral contraception 386970751 Z30.41 Body mass index 30+ - obesity 710489054 Z68.30 History of tubal ligation 501527698 Z98.51 History of dysplasia of cervix 463943848 Z87.410 Crohn's disease 45062705 K50.90 [id number] Guadalupe Almendarez APRN [place] APPLICATION INTEGRATION SPECIALIST [address] [place] [address] [place] [address] 02/27/2022 10:34:22 02/27/2022 11:19:31 Menorrhagia 464295211 N92.0 Abnormal u terine bleeding 2448203565 9100 N93.9 Body mass index 30+ - obesity 549104885 Z68.30 [id number] Guadalupe Almendarez APRN [place] APPLICATION INTEGRATION SPECIALIST [address] [place] [address] [place] [id number] 12/08/2022 08:43:17 12/08/2022 09:30:48 Routine gynecologic examination done 9330024671 9101 Z01.419 Examinatio n of blood pressure 615237619 Z01.30 BP goal < 140/90 Depression screening 171 962268 Z13.31 PHQ-9 score of 0. Diet education 24287947 Z71.3 8357-4851 calorie diet recommende d with an emphasis on reducing sugar and refined carbohydra elvin, avoiding highly processed foods and decreasing saturated fats. She declines dietary consult. Counseling [id number] Z71 .82 Exercise counseltara nichols. Patient encouraged to exercise 30 minutes 5 days a week. Screening for malignant neoplasm of cervix 325849752 Z12.4 Z11.8 Body mass index 25-29 - overweight 966333905 Z68.28 Screening for malignant neoplasm of breast 474104705 Z12.39 Crohn's disease 58579790 K50.90 History of tubal ligation 073869777 Z98.51 History of dysplasia of cervix 998677908 Z87.410 Long-term current use of immunosuppressive drug 579079311 Z79.60 Humira for Crohn's [id number] GORDY Lin APPLICATION INTEGRATION SPECIALIST [address] [place] [address] MARQUISE Machuca [id number] 01/18/2024 15:27:12 01/18/2024 16:46:10 Routine gynecologic examination done [id number] 9101 Z01.419 Examinatio n of blood pressure 208641083 Z01.30 BP goal < 140/90 Depression screening 171 619155 Z13.31 PHQ-9 score of 0. Diet education 58162287 Z71.3 3571-9293 calorie diet recommende d with an emphasis on reducing sugar and refined carbohydra elvin, avoiding highly processed foods and decreasing saturated fats. She declines dietary consult. Counseling 109040384 Z71 .82 Exercise counseltara nichols. Patient encouraged to exercise 30 minutes 5 days a week. Screening for malignant neoplasm of cervix 543122074 Z12.4 Z11.51 Z11.8 Z11.3 Screening for malignant neoplasm of breast 237030219 Z12.39 Oral contr aceptive prescribed 886945423 Z30.011 History of tubal ligation 169408233 Z98.51 History of dysplasia of cervix 269396989 Z87.410 Surveillan ce of oral contraception 975341676 Z30.41 Crohn's disease 46516725 K50.90 on Humira Long-term current use of immunosuppressive drug 342626964 Z79.60 Humira for Crohn's Body mass index 30+ - obesity 974302571 Z68.30 Obesity 851738864 E66.9 [id number] GORDY Lin APPLICATION INTEGRATION SPECIALIST [address] [place] [address] MARQUISE Machuca [id number] 06/01/2023 14:24:43 06/01/2023 15:14:54 Oral contraceptive prescribed 092371647 Z30.011 Crohn's disease 31478294 K50.90 Menorrhagia 492088549 N9 2.0 [id number] GORDY Lin APPLICATION INTEGRATION SPECIALIST [address] [place] [address] MARQUISE Machuca [id number] 08/31/2023 09:06:06 08/31/2023 09:33:25 Oral contraceptive prescribed 993147168 Z30.011 Irregular periods 227352 07 N92.6 Body mass index 25-29 - overweight 803171900 Z68.29 History of tubal ligation 039084487 Z98.51 Crohn's disease 95355473 K50.90 on Humira Health Concerns Section Related Observation LastModified by Organization Detai ls LastModified Time None Recorded Concern Status LastModified by Organization Details LastModified Time None Recorded Advance Directives Directive N: Payers Insurance Date Sequence Insurance Name Policy Number Policy Diaz Covered Member ID Diaz Member ID Guarantor Name 10/11/2020 1 [facility] [id number] Michelle Jose C [id number] Michelle Jose C 01/24/2024 1 [place] [id number] W Michelle Pérez [id number] Michelle Pérez Notes Date Note Type Note Provider Name and Address Organization Details Recorded Time 02/27/2022 text/html Michelle stated she had a normal cycle 12/08/2021 - 12/12/21 with her ocp. She didn't start taking again. She then had a cycle 01-07- - - then restarted 01-22 - -07-19. Next cycle she had was 8--22 - 8--, then 8- -. She doesn't want to take ocp and wasn't sure what to do. Guadalupe Almendarez, INHALATION THERAPY TEACHER [address], [place], [address], [place] - [facility] 03/02/2022 11:11:30 12/08/2022 text/html Annual - MOBRepo rted by PatientHistoryFor history, patient reportslast annual exam: 2021,no gynecologic complaints, andno change in interval history.ContraceptionF or current contraception, patient reportstubal ligation.Preventative measuresFor preventive measures, patient reportshistory of abnormal pap smear/cervical dysplasia (hx of cryotherapy in 2001)andneeds to schedule mammogrambut reportsup to date on colonoscopy screening,all immunization are current,encourage self breast examination,encourage regular exercise,encourage no tobacco use, andfollowed with yearly pap smears. The patient is a 42 year old reproductive age White female who presents as a/an established patient for annual gynecologic wellness exam. She denies gynecologic concerns. See above notations for significant gynecologic history of present illness as reported per patient during visit intake. Guadalupe Almendarez, INHALATION THERAPY TEACHER [address], [place], [address], [place] - [facility] 12/08/2022 19:25:01 06/01/2023 text/html Michelle is here with c/o heavy, bothersome menstrual bleeding. She is planning a trip in and would like to avoid bleeding during that time. She is s/p tubal ligation for contraception. Guadalupe Almendarez, INHALATION THERAPY TEACHER [address], [place], [address], [place] - [facility] 06/01/2023 22:00:27 08/31/2023 text/html OCP CheckReporte d by PatientHPIFor context, patient reportsnumber of ocp cycles completed:3andreason for starting ocps:irregular menses. For associated symptoms, patient reportsregular menses,no btb menses, andno side effects. Michelle is here to follow up on irregular bleeding and starting LoLoestrin. Guadalupe Almendarez APRN [address], [place], [address], [employer] - [facility] 08/31/2023 09:37:59 01/18/2024 text/html Annual - MOBRepo rted by PatientHistoryFor history, patient reportslast annual exam: 2022,no gynecologic complaints, andno change in interval history.ContraceptionF or current contraception, patient reportssatisfied with current contraception,oral contraceptives, andtubal ligation.Preventative measuresFor preventive measures, patient reportshistory of abnormal pap smear/cervical dysplasiabut reportsmammogram performed within the past year,up to date on colonoscopy screening,all immunization are current,encourage self breast examination,encourage regular exercise,encourage no tobacco use, andfollowed with yearly pap smears. The patient is a 43 year old reproductive age White female who presents as a/an established patient for annual gynecologic wellness exam. She denies gynecologic concerns. See above notations for significant gynecologic history of present illness as reported per patient during visit intake. Guadalupe Almendarez APRN [address], [place], [address], [place] - [facility] 01/18/2024 17:03:43 OBGyn Episode Ob Episode Information Episode Created Date Number of Fetuses Patient Bloodtype Patient rh Status Prepregnancy Weight lbs Domestic Partner Domestic Partner Phone Father Name Surveillance Manager Status 10/11/19 22 1 CLOSED Fetus Data First Name Last Name Admitted to NICU Weight (g) Sex Living Outcome Pediatric Complications Fetus ID Race Codes Race Delivery Type 2919.77 1704 M Full Term [id number] Tyson Calculation Initial Tyson Date Initial Exam Date Initial Exam Provider Initial Ultrasound Date Last Menstrual Period Date Ultra Sound Weeks Gestation 0 Eighteen To Twenty Week Tyson Update Ultra Sound Date Fundal Height At Umbil Quickening Date Ultra Sound Latest Weeks Gestation Final Tyson Confirmed By Final Tyson Confirmed Date Final Tyson Date Ultra Sound Latest Days Gestation 0 0 Menstrual History Last Menstrual Date Menses Monthly On Bcp Conception Prior Menses Frequency Hcg Plus Date Menarche Onset Age Delivery Information Delivery Date Delivery Type Labor Anesthesia Weeks Gestation Incision Type Labor Labor Length Hrs Delivered By Post Complications Tubal Sterilization Discharge Date Comments 4 [facility], cerebral palsy, 03-09-2019 at age 3 Discharge Information Feeding Method Contraceptive Method Maternal HG B and HCT Levels
--- NOTE | 2025-01-18 09:20 | XR_ITS ---
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 There is no fracture or dislocation. There are moderate degenerative changes of the first metatarsophalangeal joint. Mild hallux valgus deformity is identified. There is mild plantar calcaneal spurring. Moderate posterior calcaneal spurring is identified. There is no evidence of bony erosion. No soft tissue abnormality is identified. IMPRESSION: Moderate degenerative changes of the first metatarsal phalangeal joint. Mild plantar calcaneal spurring. Reviewed, Interpreted and Dictated by Viji Goldberg MD Transcribed by Morenita Amador Authenticated and . [facility]
--- NOTE | 2025-01-18 09:20 | XR_ITS ---
FINAL REPORT CLINICAL HISTORY: left heal pain , feels like it needs to be stretched and alot of pressure to heal FINDINGS: LEFT FOOT Three views were obtained. There is no fracture or dislocation. There are moderate degenerative changes of the first metatarsophalangeal joint. Mild hallux valgus deformity is identified. There is posterior calcaneal spurring. No plantar spurring is identified. There is no evidence of bony erosion. No soft tissue abnormality is identified. IMPRESSION: Moderate degenerative changes of the first metatarsal phalangeal joint. Reviewed, Interpreted and Dictated by Viji Goldberg MD Transcribed by Morenita Amador Authenticated and [facility]
--- OUTSIDE RECORDS SUMMARY | 2025-01-18 09:20 | XMS_ITS | Data Portability ---
Author Organization [place] - [facility] Address [address] [place] [address] Care Team Providers Care Machine Feeder Raw Stock Name Role Phone ISSA BUI Primary Care Provider KENDELL DIAZ Referring Provider IVELISSE CERVANTES Referring Provider [phone] ISSA BUI Primary Care Provider Assessment No assessment recorded. Plan of Treatment Reminders Order Date Submit Date Provider Last Modified By Organization Details Last Modified Time Details Appointments None recorded. Lab C-reactive protein, quantitati ve, serum or plasma 2023 024 [facility] (Registration ), [place], [address], 4 08:22:37 CBC w/ auto diff 2023 024 [facility] (Registration ), [place], [address], 4 15:32:00 tissue transgluta minase iga Ab, serum 2023 024 [email or web address] [id number] [facility] (Registration ), [place], [address], 4 11:11:41 iga Ab, qualitativ e, serum [address] (Registration ), [address], [place], [address], 4 10:35:16 TSH + free T4, serum 2023 024 [email or web address] 3 [facility] (Registration ), [address], [place], [address], 4 11:12:10 C-reactive protein, quantitati ve, serum or plasma 2022 023 [facility] (Registration ), [address], [place], [address], 3 17:12:50 CBC w/ auto diff 2022 023 [facility] (Registration ), [address], [place], [address], 3 16:28:45 Referral None recorded. Procedures colonoscop y procedure (PROC) - PHYSICIAN ORDERS 1. Ensure patient is NPO and bowel prep complete. 0.9% normal saline @kvo preferably in right arm; IV patent to gravity. 3. Verify consent. Colonoscop y with possible biopsy with possible polypectom y. 4. On-Call to Endoscopy. 5. If prep not clear, give large volume enema and report results. 6. Draw pt/inr if patient on Coumadin Hold [address] (Outpatient Surgery), [address], [place], [address], 4 10:12:37 colonoscop y procedure (PROC) - PHYSICIAN ORDERS 1. Ensure patient is NPO and bowel prep complete. 0.9% normal saline @kvo preferably in right arm; IV patent to gravity. 3. Verify consent. Colonoscop y with possible biopsy with possible polypectom y. 4. On-Call to Endoscopy. 5. If prep not clear, give large volume enema and report results. 6. Draw pt/inr if patient on Coumadin Hold 2022 023 [email or web address] [facility] (Outpatient Surgery), [address] [place] [address] , [place], [address], 3 10:40:54 Surgeries None recorded. Imaging None recorded. Medication Orders Humira Pen 40 mg/0.8 mL subcutaneo us kit 2024 025 AR[facility], [address], [address], [place], [address], 5 13:35:41 Suprep Bowel Prep Kit 17.5 gram-3.13 gram-1.6 gram oral solution 2023 024 ARNEL [facility], [address] [place] [address] , [place], [place], [id number], 4 15:39:42 Humira Pen 40 mg/0.8 mL subcutaneo us kit 2022 023 ARNEL [facility], [address], [address], [place], [address], 3 15:46:56 Suprep Bowel Prep Kit 17.5 gram-3.13 gram-1.6 gram oral solution 2022 023 [email or web address] [facility], [address] [place] [address] , [place], [place], [id number], 4 11:23:45 Patient TargetsNo targets recorded. Patient Instructions Encounter Date Encounter Id Patient Instructions Last Modified By Organization Details Last Modified Time 02/16/2023 [id number] The indications, technique, alternatives, and potential risks and complications of planned procedure were discussed with the patient including, but not limited to bleeding, perforation, missed lesions, and anesthesia complications. The patient understands and wishes to proceed and has given informed consent. Written information provided to the patient. [email or web address] Not available 02/16/2023 15:50:11 Reason for Referral None Reported. Results Created Date Observation Date Name Description Value Unit Range Abnormal Flag Note LastModifiedBy Organization Detail LastModifiedTime 02/17/20 23 02/16/2023 CBC W/AUT O DIFFE RENTI AL note SEE NOTE Order ing Provi cristhian: Agustín joyce MD Not Available [address] , [place], [address], 02/16/2023 16:28:45 02/17/20 23 02/16/2023 CBC W/AUT O DIFFE RENTI AL white blood cell 4.7 10e3/ uL 4.5-13 .0 normal Not Available [address], [place], [address], 02/16/2023 16:28:45 02/17/20 23 02/16/2023 CBC W/AUT O DIFFE RENTI AL red blood cell 3.98 10e6/ uL 3.80-5 .10 normal Not Available [address], [place], [address], 02/16/2023 16:28:45 02/17/20 23 02/16/2023 CBC W/AUT O DIFFE RENTI AL hemoglobin 12.4 g/dL 11.5-1 5.3 normal Not Available [place] [address], [place], [address], 02/16/2023 16:28:45 02/17/20 23 02/16/2023 CBC W/AUT O DIFFE RENTI AL hematocrit 36.2 % 34.0-4 6.0 normal Not Available [place] [address], [place], [address], 02/16/2023 16:28:45 02/17/20 23 02/16/2023 CBC W/AUT O DIFFE RENTI AL mean cell volume 91 fL 78.0-9 8.0 normal Not Available [address] [place], [place], [address], 02/16/2023 16:28:45 02/17/20 23 02/16/2023 CBC W/AUT O DIFFE RENTI AL mean cell HGB 31.2 pg 25.0-3 5.0 normal Not Available [address] [place], [place], [address], 02/16/2023 16:28:45 02/17/20 23 02/16/2023 CBC W/AUT O DIFFE RENTI AL mean cell HGB concentratio n 34.3 g/dL 31.0-3 6.0 normal Not Available [address] [place], [place], [address], 02/16/2023 16:28:45 02/17/20 23 02/16/2023 CBC W/AUT O DIFFE RENTI AL red cell distribution width 11.2 % 11.0-1 5.0 normal Not Available [address] [place], [place], [address], 02/16/2023 16:28:45 02/17/20 23 02/16/2023 CBC W/AUT O DIFFE RENTI AL platelet count 319 10e3/ uL 150-40 0 normal Not Available [address] [place], [place], [address], 02/16/2023 16:28:45 02/17/20 23 02/16/2023 CBC W/AUT O DIFFE RENTI AL immature granulocyte % 0 0-1 normal Not Available [address], [place], [address], 02/16/2023 16:28:45 02/17/20 23 02/16/2023 CBC W/AUT O DIFFE RENTI AL neutrophil % 54 % 35-75 normal Not Available [address], [place], [address], 02/16/2023 16:28:45 02/17/20 23 02/16/2023 CBC W/AUT O DIFFE RENTI AL lymphocyte % 36 % 10-50 normal Not Available [address], [place], [address], 02/16/2023 16:28:45 02/17/20 23 02/16/2023 CBC W/AUT O DIFFE RENTI AL monocyte % 7 % 0-15 normal Not Available [address], [place], [address], 02/16/2023 16:28:45 02/17/20 23 02/16/2023 CBC W/AUT O DIFFE RENTI AL eosinophil % 2 % 0-5 normal Not Available [address], [place], [address], 02/16/2023 16:28:45 02/17/20 23 02/16/2023 CBC W/AUT O DIFFE RENTI AL basophil % 1 % 0-5 normal Not Available [address], [place], [address], 02/16/2023 16:28:45 02/17/20 23 02/16/2023 CBC W/AUT O DIFFE RENTI AL immature granulocyte # 0.01 x1000 /uL 0-0.05 normal Not Available [place] [address], [place], [address], 02/16/2023 16:28:45 02/17/20 23 02/16/2023 CBC W/AUT O DIFFE RENTI AL neutrophil # 2.51 x1000 /uL 1.50-8 .00 normal Not Available [address] [place], [place], [address], 02/16/2023 16:28:45 02/17/20 23 02/16/2023 CBC W/AUT O DIFFE RENTI AL lymphocyte # 1.68 x1000 /uL 1.20-5 .20 normal Not Available [address] [place], [place], [address], 02/16/2023 16:28:45 02/17/20 23 02/16/2023 CBC W/AUT O DIFFE RENTI AL monocyte # 0.33 x1000 /uL 0.40-0 .90 low Not Available [address], [place], [address], 02/16/2023 16:28:45 02/17/20 23 02/16/2023 CBC W/AUT O DIFFE RENTI AL eosinophil # 0.10 x1000 /uL 0.00-0 .50 normal Not Available [address], [place], [address], 02/16/2023 16:28:45 02/17/20 23 02/16/2023 CBC W/AUT O DIFFE RENTI AL basophil # 0.05 x1000 /uL 0.00-0 .30 normal Not Available [address] [place], [place], [address], 02/16/2023 16:28:45 02/17/20 23 02/16/2023 CBC W/AUT O DIFFE RENTI AL NRBC automated 0.0 /100_ WBC Not Available [address], [place], [address], 02/16/2023 16:28:45 02/17/20 23 02/16/2023 CBC W/AUT O DIFFE RENTI AL performing lab SEE NOTE ML - [facility] R [address] [place] [address] DRIVE [facility] [address] Not Available [address] [place], [place], [address], 02/16/2023 16:28:45 02/17/20 23 02/16/2023 C-KRAIG CTIVE PROTE IN note SEE NOTE Order ing Provi cristhian: Agustín joyce MD Not Available [address] , [place], [address], 02/16/2023 17:12:50 02/17/20 23 02/16/2023 C-KRAIG CTIVE PROTE IN C-reactive protein <2.0 mg/L 0.0-9. 0 normal Not Available [address] , [place], [address], 02/16/2023 17:12:50 02/17/20 23 02/16/2023 C-KRAIG CTIVE PROTE IN performing lab SEE NOTE ML - [facility] [address] [facility] [address] Not Available [address] , [place], [address], 02/16/2023 17:12:50 03/02/20 23 03/02/2023 UR HCG QUAL note See Note Order ing Provi cristhian: Agustín joyce MD Not Available [address] , [place], [address], 03/02/2023 07:20:11 03/02/20 23 03/02/2023 UR HCG QUAL ur HCG qual NEGATI VE negati ve Not Available [address] , [place], [address], 03/02/2023 07:20:11 03/02/20 23 03/02/2023 UR HCG QUAL performing lab see note ML - [facility] R [address] [facility] [address] Not Available [address] , [place], [address], 03/02/2023 07:20:11 12/14/19 24 12/14/2023 CBC W/AUT O DIFFE RENTI AL note SEE NOTE Order ing Provi cristhian: Agustín joyce MD Not Available [address] , [place], [address], 12/14/2023 15:32:00 12/14/19 24 12/14/2023 CBC W/AUT O DIFFE RENTI AL white blood cell 6.5 10e3/ uL 4.5-13 .0 normal Not Available [address] , [place], [address], 12/14/2023 15:32:00 12/14/19 24 12/14/2023 CBC W/AUT O DIFFE RENTI AL red blood cell 4.24 10e6/ uL 3.80-5 .10 normal Not Available [address], [place], [address], 12/14/2023 15:32:00 12/14/19 24 12/14/2023 CBC W/AUT O DIFFE RENTI AL hemoglobin 13.3 g/dL 11.5-1 5.3 normal Not Available [place] [address], [place], [address], 12/14/2023 15:32:00 12/14/19 24 12/14/2023 CBC W/AUT O DIFFE RENTI AL hematocrit 38.4 % 34.0-4 6.0 normal Not Available [address], [place], [address], 12/14/2023 15:32:00 12/14/19 24 12/14/2023 CBC W/AUT O DIFFE RENTI AL mean cell volume 91 fL 78.0-9 8.0 normal Not Available [address], [place], [address], 12/14/2023 15:32:00 12/14/19 24 12/14/2023 CBC W/AUT O DIFFE RENTI AL mean cell HGB 31.4 pg 25.0-3 5.0 normal Not Available [address], [place], [address], 12/14/2023 15:32:00 12/14/19 24 12/14/2023 CBC W/AUT O DIFFE RENTI AL mean cell HGB concentratio n 34.6 g/dL 31.0-3 6.0 normal Not Available [address] , [place], [address], 12/14/2023 15:32:00 12/14/19 24 12/14/2023 CBC W/AUT O DIFFE RENTI AL red cell distribution width 11.0 % 11.0-1 5.0 normal Not Available [address] , [place], [address], 12/14/2023 15:32:00 12/14/19 24 12/14/2023 CBC W/AUT O DIFFE RENTI AL platelet count 324 10e3/ uL 150-40 0 normal Not Available [address], [place], [address], 12/14/2023 15:32:00 12/14/19 24 12/14/2023 CBC W/AUT O DIFFE RENTI AL immature granulocyte % 0 0-1 normal Not Available [address], [place], [address], 12/14/2023 15:32:00 12/14/19 24 12/14/2023 CBC W/AUT O DIFFE RENTI AL neutrophil % 55 % 35-75 normal Not Available [address] [place], [address], 12/14/2023 15:32:00 12/14/19 24 12/14/2023 CBC W/AUT O DIFFE RENTI AL lymphocyte % 36 % 10-50 normal Not Available [address] , [place], [address], 12/14/2023 15:32:00 12/14/19 24 12/14/2023 CBC W/AUT O DIFFE RENTI AL monocyte % 6 % 0-15 normal Not Available [address] , [place], [address], 12/14/2023 15:32:00 12/14/19 24 12/14/2023 CBC W/AUT O DIFFE RENTI AL eosinophil % 2 % 0-5 normal Not Available [address] , [place], [address], 12/14/2023 15:32:00 12/14/19 24 12/14/2023 CBC W/AUT O DIFFE RENTI AL basophil % 1 % 0-5 normal Not Available [address] , [place], [address], 12/14/2023 15:32:00 12/14/19 24 12/14/2023 CBC W/AUT O DIFFE RENTI AL immature granulocyte # 0.01 x1000 /uL 0-0.05 normal Not Available [address] , [place], [address], 12/14/2023 15:32:00 12/14/19 24 12/14/2023 CBC W/AUT O DIFFE RENTI AL neutrophil # 3.59 x1000 /uL 1.50-8 .00 normal Not Available [address], [place], [address], 12/14/2023 15:32:00 12/14/19 24 12/14/2023 CBC W/AUT O DIFFE RENTI AL lymphocyte # 2.33 x1000 /uL 1.20-5 .20 normal Not Available [address] , [place], [address], 12/14/2023 15:32:00 12/14/19 24 12/14/2023 CBC W/AUT O DIFFE RENTI AL monocyte # 0.39 x1000 /uL 0.40-0 .90 low Not Available [address] , [place], [address], 12/14/2023 15:32:00 12/14/19 24 12/14/2023 CBC W/AUT O DIFFE RENTI AL eosinophil # 0.12 x1000 /uL 0.00-0 .50 normal Not Available [address] , [place], [address], 12/14/2023 15:32:00 12/14/19 24 12/14/2023 CBC W/AUT O DIFFE RENTI AL basophil # 0.05 x1000 /uL 0.00-0 .30 normal Not Available [address] , [place], [address], 12/14/2023 15:32:00 12/14/19 24 12/14/2023 CBC W/AUT O DIFFE RENTI AL NRBC automated 0.0 /100_ WBC Not Available [address] , [place], [address], 12/14/2023 15:32:00 12/14/19 24 12/14/2023 CBC W/AUT O DIFFE RENTI AL performing lab SEE NOTE - [facility] R [address] [place] [address] DRIVE [facility] [address] Not Available [address] , [place], [address], 12/14/2023 15:32:00 12/14/19 24 12/14/2023 T4 FREE note See Note Order ing Provi cristhian: Agustín joyce MD Not Available [address] , [place], [address], 12/15/2023 08:22:36 12/14/19 24 12/14/2023 T4 FREE T4 free 0.92 NG/dL 0.76-1 .46 normal This test may be affec abdulaziz by high level s of bioti n, found in some presc ripti on and over- the-c ounte r suppl ement s. Hardy ly, patie nts shoul d disco ntinu e bioti n 3 days befor e testi ng. Resul ts obtai kindra after recen t bioti n inges tion shoul d be inter prete d with cauti on. Not Available [address] , [place], [address], 12/15/2023 08:22:36 12/14/19 24 12/14/2023 T4 FREE performing lab see note - [facility] [address] [facility] [address] Not Available [address] , [place], [address], 12/15/2023 08:22:36 12/14/19 24 12/14/2023 THYRO ID STIMU LATIN G HORMO NE note See Note Order ing Provi cristhian: Agustín joyce MD Not Available [address] , [place], [address], 12/15/2023 08:22:36 12/14/19 24 12/14/2023 THYRO ID STIMU LATIN G HORMO NE thyroid stimulating hormone 1.95 uIU/m L 0.36-3 .74 normal This test may be affec abdulaziz by high level s of bioti n, found in some presc ripti on and over- the-c ounte r suppl ement s. Hardy ly, patie nts shoul d disco ntinu e bioti n 3 days befor e testi ng. Resul ts obtai kindra after recen t bioti n inges tion aramis d be inter prete d with cauti on. Not Available [address] , [place], [address], 12/15/2023 08:22:36 12/14/19 24 12/14/2023 THYRO ID STIMU LATIN G HORMO NE performing lab see note - [facility] R [address] [facility] [address] Not Available [address] , [place], [address], 12/15/2023 08:22:36 12/14/19 24 12/14/2023 C-KRAIG CTIVE PROTE IN note SEE NOTE Order ing Provi cristhian: Agustín joyce MD Not Available [address] , [place], [address], 12/15/2023 08:22:37 12/14/19 24 12/14/2023 C-KRAIG CTIVE PROTE IN C-reactive protein 5.1 mg/L <5.0 NOT E NEW REFER ENCE RANGE S Not Available [address] , [place], [address], 12/15/2023 08:22:37 12/14/19 24 12/14/2023 C-KRAIG CTIVE PROTE IN performing lab SEE NOTE - [facility] [address] [facility] [address] Not Available [address] , [place], [address], 12/15/2023 08:22:37 12/14/19 24 12/14/2023 IMMUN KAILYN Sharpe note See Note Order ing Provi cristhian: Agustín joyce MD Not Available [address] , [place], [address], 12/15/2023 08:22:37 12/14/19 24 12/14/2023 IMMUN OGLOB ULIN A immunoglobul in A 330 mg/dL 87-352 Perfo rmed At: CB, [facility] [address] [facility], [place], [place], [id number] Eliel almonte, PhD, Phone : [phone] Not Available [address] , [place], [address], 12/15/2023 08:22:37 12/14/19 24 12/14/2023 IMMUN OGLOB ULIN A performing lab see note LC2 - [facility] MARIBELLIEN T# [id number] [id number] [address] [place] [address] Not Available [address] [place], [address], 12/15/2023 08:22:37 12/14/19 24 12/14/2023 AB TISSU E TRANS GLUTA MEME E IGA note See Note Order ing Provi cristhian: Agustín joyce MD Not Available [address] [place], [address], 12/15/2023 16:13:48 12/14/19 24 12/14/2023 AB TISSU E TRANS GLUTA MEME E IGA Ab tissue transglutami nase IgA <2 U/mL 0-3 Negat kimberley 0 - 3 Weak Posit kimberley 4 - 10 Posit kimberley >10 . Tissu e Trans gluta meme e (tTG) has been ident ified as the endom ysial antig en. Studi es have demon str- ated that endom ysial IgA antib odies have over 99% speci ficit y for glute n sensi tive enter opath y. Perfo rmed At: CB, [facility] [address] [facility], [place], [address] Eliel almonte, PhD, Phone : [phone] Not Available [address] [place], [address], 12/15/2023 16:13:48 12/14/19 24 12/14/2023 AB TISSU E TRANS GLUTA MEME E IGA performing lab see note LC2 - [facility] CLIEN T# [id number] [id number] [place] [address] Not Available [address] , [place], [address], 12/15/2023 16:13:48 01/04/20 24 01/04/2024 UR HCG QUAL note See Note Order ing Provi cristhian: Agustín joyce MD Not Available [address] , [place], [address], 01/04/2024 09:10:44 01/04/20 24 01/04/2024 UR HCG QUAL ur HCG qual NEGATI VE negati ve Not Available [address] , [place], [address], 01/04/2024 09:10:44 01/04/20 24 01/04/2024 UR HCG QUAL performing lab see note ML - [facility] R [address] [facility] [address] Not Available [address] , [place], [address], 01/04/2024 09:10:44 Result Notes None recorded. Problems Name Problem SNOMED Code Status Onset Date Resolution Date Notes Provider Name and Address Organization Details Recorded Time Crohn's disease of large bowel 4910608 Active 2022 Not Available [employer] 3 01:55:48 Rectal hemorrhage 50952227 Active 2023 Ramana Ricci MD [address] [facility], [place], [address] , [facility] 4 14:51:18 Constipation 85374611 Active 2023 Ramana Ricci MD [address] [place] [address],[place] [address], [place], [address] , MARQUISE - NALLELYNT - [place] & [place] 4 15:03:42 Problem Notes None recorded. Procedures Surgical History Date Name Laterality Status Provider Name and Address Organization Details Recorded Time 3 completed Bob CAMARILLO - [facility] - [place] [facility] [place] 09/16/2023 13:45:41 3 Date of Last Pap Smear completed Bob CAMARILLO - [facility] - [place] [facility] [place] 09/16/2023 13:45:41 1 Colonoscopy completed Alicja CAMARILLO - N[facility]LELYNT - [place] [facility] [place] 02/16/2023 14:51:37 1 Date of Last Colonoscopy completed Bob CAMARILLO - [facility] - [facility] & [place] 09/16/2023 13:45:41 4 section completed Alicja CAMARILLO - N[facility]NT - [facility] & [place] 02/16/2023 14:51:50 4 Other completed Bob CAMARILLO - [facility] - [facility] & [place] 09/16/2023 13:45:42 9 Knee Surgery completed Alicja Mackey LPNT - [place] & [place] 02/16/2023 14:52:28 9 Other completed Bob CAMARILLO - [facility] - [facility] & [place] 09/16/2023 13:45:42 Imaging Results None recorded. Procedure Notes None recorded. Medical Equipment None Reported. Allergies Allergen ID Allergen Name Allergen Category Reaction Reaction Severity Criticality Documentation Date Start Date Code Code System Note Provider Name and Address Organization Details Recorded Time 835211 inflixima b medicatio n Not available Not available Not available 09/16/20232022 55350 1 RxNorm Bob Edwards luma MARQUISE - LPNT - [place] [facility] [place] 4 13:46:14 Medications Name Sig Start Date Stop Date Status Note LastModified by Organization Details LastModified Time Miralax 17 gram/dose oral powder Take 17 g every day by oral route as needed. active Not Available Not Available No t Available sennosides 8.6 mg tablet Take 8.6 mg by oral route. 12/13 completed Not Available Not Available Not Available albuterol sulfate 2.5 mg/3 mL (0.083 %) solution for nebulizatio n 12/13 completed Not Available Not Available Not Available trazodone 50 mg tablet 12/13 completed Not Available Not Available Not Available polyethylen e glycol 3350 17 gram oral powder packet 12/13 completed Not Available Not Available Not Available cetirizine 10 mg tablet 02/25 completed Not Available Not Available Not Available oseltamivir 75 mg capsule 12/13 completed Not Available Not Available Not Available rosuvastati n 5 mg tablet Take 1 tablet every day by oral route. active Not Available Not Available No t Available Humira Pen 40 mg/0.8 mL subcutaneou s kit INJECT 1 PEN (40MG) UNDER THE SKIN EVERY 2 WEEKS 2024 active Not Available Not Available Not Avai lable sodium,pota ssium,mag sulfates 17.5 gram-3.13 gram-1.6 gram oral soln take as directed by Dr. Ricci's office active Not Available Not Available No t Available Lo Loestrin Fe 1 mg-10 mcg (24)/10 mcg (2) tablet Take by oral route as directed for 84 days. active Not Available Not Available No t Available Vitals Date Recorded Body height Body mass index (BMI) Body weight Body temperature Oxygen saturation Oxygen saturation in Arterial blood by Pulse oximetry Heart rate Systolic And Diastolic Provider Name and Address Organization Details Last Updated DateTime 5 154.94 cm 30.2 kg/m2 83842.7 8 g 97.7 [degF] 99 % 99 % 97 /min 115/80 mm[Hg] Stacia Dc [place] - LPNT [facility] & [place] 5 13:09:52 Date Recorded Body height Body mass index (BMI) Body weight Body temperature Heart rate Respiratory rate Systolic And Diastolic Provider Name and Address Organization Details Last Updated DateTime 4 154.94 cm 30 kg/m2 71518.4 7 g 97.6 [degF] 94 /min 18 /min 138/90 mm[Hg] Bob CAMARILLO NALLELYR [facility] & [place] 4 14:21:29 Date Recorded Body height Body mass index (BMI) Body weight Body temperature Heart rate Respiratory rate Systolic And Diastolic Provider Name and Address Organization Details Last Updated DateTime 3 154.94 cm 28.3 kg/m2 06256.4 2 g 98.5 [degF] 71 /min 18 /min 113/76 mm[Hg] Alicja Mackey LPR [facility] & [place] 3 14:45:47 Social History Question Answer Notes LastModified by Organizat [employer] Details LastModified Time Tobacco Smoking Status Never Smoker Alicja ge, MARQUISE Mackey LPR [facility] & [place] 02/16/2023 14:51:06 Do You Have An Advance Directive? No Information not available 09/16/2023 Are You Blind Or Do You Have Difficulty Seeing? Yes Information not available 09/16/2023 What Is Your Level Of Caffeine Consumption? Occasional [id number] Information not available 02/16/2023 What Type Of Diet Are You Following? REGULAR [email or web address] Information not available 02/16/2023 What Was The Date Of Your Most Recent Tobacco Screening? 02/15/2023 Information not available 09/16/2023 Sex: Female Functional Status Question Answer Note LastModified by Organizat ion Details LastModified Time Do you use any illicit or recreational drugs? No [email or web address] Information not available 02/16/2023 What is your level of alcohol consumption? 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 Moderate Information not available 09/16/2023 Mental Status Question Answer Note LastModified by Organization D etails LastModified Time Do you feel stressed (tense, restless, nervous, or anxious, or unable to sleep at night)? [id number] Information not available 09/16/2023 Family History Relationship Description Onset Age of this Age Resolved Age Notes LastModified by Organization Details LastModified Time Father Cerebrovascu lar accident pt. added direct ly (02/15) [email or web address] Not available 02/15/2023 12:54:14 Father Polyp of colon [email or web address] Not available 2024 12:55:42 Sister Autoimmune disease pt. added direct ly (02/15) [email or web address] Not available 02/15/2023 12:54:37 Medical History Condition Response Coronary Artery Disease N Gout N None Y Colon Cancer N Kidney Stones N Hyperthyroidism N Hypothyroidism N Depression N COPD N Diverticulitis/Diverticulosis N Anxiety Disorder N Autoimmune disease Y Arthritis N Cancer N Stroke N Liver Disease N Kidney Disease N Osteoporosis/Osteopenia N Colon Polyps N Diabetes N Bleeding Disorder N Seizures/Epilepsy N Tuberculosis N Hyperlipidemia N Asthma N Sleep Apnea N GERD/Reflux N Hepatitis N Cirrhosis N Heart Disease N Hypertension N Gynecological History Statement/Question Response Abnormal Pap N 01/25/2023 Flow Heavy Date of LMP 02/02/2023 Duration of Flow (days) 7 Current Control Method None Age at Menarche 7 Date of Last Colonoscopy 06/01/2021 Sexually Active? Y Menses Monthly Y Date of Last Pap Smear 12/08/2022 Obstetrics History GPAL:G 0 P 0 0 0 0 Immunizations Vaccine Type Date Status Note Provider Nam e and Address Organization Details Recorded Time COVID-19, mRNA, LNP-S, bivalent, PF, 30 mcg/0.3 mL dose 05/14/2022 completed Not Available [facility] 3 01:55:48 COVID-19, mRNA, LNP-S, bivalent, PF, 30 mcg/0.3 mL dose 12/24/2021 completed Not Available [facility] 3 01:55:48 COVID-19, mRNA, LNP-S, PF, 10 mcg/0.2 mL dose, lizzy-sucrose 04/14/2021 completed Not Available [facility] 023 01:55:48 COVID-19, mRNA, LNP-S, PF, 10 mcg/0.2 mL dose, lizzy-sucrose 07/17/2020 completed Not Available [facility] 023 01:55:48 COVID-19, mRNA, LNP-S, PF, 10 mcg/0.2 mL dose, lizzy-sucrose 06/26/2020 completed Not Available [facility] 023 01:55:48 Past Encounters Encounter ID Performer Location Encounter Start Date Encounter Closed Date Diagnosis/Indication Diagnosis SNOMED-CT Code Diagnosis ICD10 Code Diagnosis Note [id number] Ramana Ricci MD [facility] [address] [place] [address],[facility] te [address] [place] [phone] 02/16/2023 14:27:54 02/16/2023 15:51:21 Crohn's disease of large bowel 6552689 K50.10 Excellent control on current therapy, check CRP and CBC for safety purposes, schedule colonoscop y for dysplasia surveillan ce continue Humira unchanged. [id number] Ramana Ricci MD [facility] [address] [place] [address],[facility] te [address] [place] [id number] 0 12/14/2023 14:08:45 12/14/2023 15:00:23 Crohn's disease of large bowel 1226515 K50.10 The patient's recent episode of rectal bleeding may have been totally unrelated to her background Crohn's disease but do feel CRP CBC is recommende d, as well as reassessme nt endoscopic ally. Rectal hemorrhage [id number] K62.5 Constipation 17545666 K5 9.00 unusual onset after a in apparent reaction to Tamiflu, at this time continue MiraLax on a daily basis, hold senna. May use milk of magnesia if needed for relief of severe constipati on. [id number] Ramana Ricci MD [facility] [address] [place] [address],[place] [phone] 07/10/2024 12:53:38 07/10/2024 13:35:28 Crohn's disease of large bowel 3723269 K50.10 The patient has Crohn's disease that time is quiescent, no change in therapy indicated continue Humira without change. Routine follow-up 6 months or PRN. The patient is scheduled for rheumatolo gic evaluation later this month, if there are areas of concern she will let us know. Outside labs including a [facility] metabolic panel, CBC and TSH reviewed and normal. Constipation [id number] K5 9.00 Continue MiraLax on a daily basis. May use milk of magnesia if needed for relief of severe constipati on. Health Concerns Section Related Observation LastModified by Organization Henna nielsen LastModified Time None Recorded Concern Status LastModified by Organization Details LastModified Time None Recorded Advance Directives Directive N: Payers Insurance Date Sequence Insurance Name Policy Number Policy Diaz Covered Member ID Diaz Member ID Guarantor Name 07/10/2024 1 [facility] Michelle Woodall [id number] Michelle Woodall 07/10/2024 1 [id number] [id number] W Michelle Woodall [id number] Michelle Woodall Notes Date Note Type Note Provider Name and Address Organization Details Recorded Time 02/16/2023 text/html this 42-year-old female presents in routine follow-up. We follow this patient for Crohn's disease involving the colon. Patient currently is on Humira, and continues to do well on Humira without any symptoms. She denies any abdominal pain, no melena or bright red blood per rectum no diarrhea or constipation no heartburn or indigestion. No weight loss no fevers or chills. Ramana Ricci MD [address] [place] [address],[address], [place], [phone], [facility] [place] 02/16/2023 15:50:40 12/14/2023 text/html this 43-year-old female has a history of small bowel Crohn's, reports that she was doing well until July of this year, she notes that he family member was diagnosed with influenza, she was prescribed Tamiflu which she had some type of reaction to with myalgias diffuse arthralgias rash. Subsequent to that the patient notes that her bowel movements when from relatively easy to pass to more constipated culminating in severe constipation recently. During the patient's most recent bout of severe constipation she noted some associated rectal bleeding. The patient was given laxatives in the form of MiraLax and senna with improvement, she feels that there was 1 time when she passed something look something like tissue. She is unsure what it might have been. Currently had a bowel movement yesterday and today without difficulty. Ramana Ricci MD [address] [place] [address],[address], [place], [phone], [facility] [place] 12/14/2023 15:06:08 07/10/2024 text/html ROS as noted in the HPI 44-year-old female history of Crohn's colitis who presents follow-up. The patient is doing very well in regards to her Crohn's disease, she has had no diarrhea rectal bleeding or abdominal pain had a C-reactive protein and colonoscopy last summer that demonstrated no active inflammation, the colon was essentially normal. The patient remains on Humira without difficulties. He does have a tendency towards constipation takes MiraLax which is effective. She notes some bloating but has some lactose intolerance. The patient has had some ongoing joint complaints, and is scheduled to see Rheumatology, notes that she has had joint complaints since she was a child. Ramana Ricci MD [address] [facility],[address], [place], [address], [facility] [place] & [place] 07/10/2024 13:38:04 OBGyn Episode No OBEpisode recorded.
--- OUTSIDE RECORDS SUMMARY | 2025-01-18 09:20 | XMS_ITS | Data Portability ---
Author Organization 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 Despite well-controlled Crohn's symptoms with long-term Humira therapy, arthritis signs persist, suggestive of developing resistance or inadequate current treatment. 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 Despite well-controlled Crohn's symptoms with long-term Humira therapy, arthritis signs persist, suggestive of developing resistance or inadequate current treatment. [email or web address] Not available 11/17/2024 09:56:38 Plan of Treatment Reminders Order Date Submit Date Provider Last Modified By Organization Details Last Modified Time Details Appointments RHEUM RECHECK 2024 08:30A M DAMON HERRERA MD Not available Not available Not available Lab CBC w/ auto diff 2024 025 [email or web address] [facility], [address] [place] [address], [place], [address], 12/22/2024 08:42:39 CMP, serum or plasma [address] [facility], [address] [place] [address], [address], 12/22/2024 08:42:39 ESR (erythro cyte sediment ation rate), blood [address] [facility], [address] [place] [address], [address], 12/22/2024 08:42:39 C reactive protein, QN, serum or plasma [address] [facility], [address] [place] [address], [address], 12/22/2024 08:42:39 CBC w/ auto diff 2024 025 [facility], [address] [place] [address], [address], 08/17/2024 14:05:24 CMP, serum or plasma 2024 025 [facility], [address] [place] [address], [address], 08/17/2024 15:01:23 ESR (erythro cyte sediment ation rate), blood 2024 025 [facility], [address] [place] [address], [address], 08/17/2024 14:09:47 C reactive protein, QN, serum or plasma 2024 025 [facility], [address] [place] [address], [address], 08/17/2024 15:01:26 Mycobact erium tubercul osis stimulat ed gamma interfer on, qual, blood 2024 025 [facility], [address] [place] [address], [address], 08/20/2024 19:53:33 hepatiti s (A+B+C) panel, serum 2024 025 [facility], [address] [place] [address], [address], 08/17/2024 18:37:12 Referral None recorded . Procedures None recorded . Surgeries None recorded . Imaging XR, sacroili ac joint(s) , 3 or more view 2024 025 [facility], [address] [place] [address], [address], 08/17/2024 12:13:45 XR, hand, 3 or more view 2024 025 [facility], [address] [place] [address], [address], 08/17/2024 12:11:25 Medication Orders Skyrizi 60 mg/mL intraven ous solution 2024 025 [email or web address] [facility], [address], [place] [address], [address], 11/17/2024 09:32:44 Skyrizi 60 mg/mL intraven ous solution 2024 025 [email or web address] [facility], [address], [address], [place], [address], 11/17/2024 09:32:44 Skyrizi 60 mg/mL intraven ous solution 2024 025 [email or web address] [facility], [address], [address], [place], [address], 11/17/2024 09:32:44 Patient TargetsNo targets recorded. Patient Instructions Encounter Date Encounter Id Patient Instructions Last Modified By Organization Details Last Modified Time 08/17/2024 [id number] I spent >60 minutes caring for the patient today with counseling, coordinating care, extensive review of outside records, medication management, and documentation. [email or web address] Not available 08/20/2024 23:13:36 Reason for Referral None Reported. Results Created Date Observation Date Name Description Value Unit Range Abnormal Flag Note LastModifiedBy Organization Detail LastModifiedTime 08/17/1908/17/2024 COMPL ETE BLOOD COUNT white blood cells 6.8 10*3/ uL 3.8-10 .8 normal Not Available [facility] [address] [place] [address], [address], 08/17/2024 14:05:24 08/17/19 25 08/17/2024 COMPL ETE BLOOD COUNT red blood cells 4.39 10*6/ uL 3.80-5 .20 normal Not Available [facility] [address] [place] [address], [address], 08/17/2024 14:05:24 08/17/19 25 08/17/2024 COMPL ETE BLOOD COUNT hemoglobin 14.0 g/dL 12.0-1 6.0 normal Not Available [facility] [address] [place], [address], 08/17/2024 14:05:24 08/17/19 25 08/17/2024 COMPL ETE BLOOD COUNT hematocrit 40.3 % 35.0-4 7.0 normal Not Available [facility] [address] [place] [address], [address], 08/17/2024 14:05:24 08/17/19 25 08/17/2024 COMPL ETE BLOOD COUNT MCV 92 fL 80-100 normal Not Available [facility] [address] [place] [address], [address], 08/17/2024 14:05:24 08/17/19 25 08/17/2024 COMPL ETE BLOOD COUNT MCH 32 pg 26-35 normal Not Available [facility] [address] [place] [address], [address], 08/17/2024 14:05:24 08/17/19 25 08/17/2024 COMPL ETE BLOOD COUNT MCHC 35 g/dL 32-36 normal Not Available [facility] [address] [place] [address], [address], 08/17/2024 14:05:24 08/17/19 25 08/17/2024 COMPL ETE BLOOD COUNT RDW 12.2 % 11.0-1 5.0 normal Not Available [facility] [address] [place] [address], [address], 08/17/2024 14:05:24 08/17/19 25 08/17/2024 COMPL ETE BLOOD COUNT MPV 7.2 fL 6.2-10 .5 normal Not Available [facility] [address] [place] [address], [address], 08/17/2024 14:05:24 08/17/19 25 08/17/2024 COMPL ETE BLOOD COUNT platelet count 374 10*3/ uL 150-40 0 normal Not Available [facility] [address] [place] [address], [address], 08/17/2024 14:05:24 08/17/19 25 08/17/2024 COMPL ETE BLOOD COUNT neutrophil,a bsolute 4.2 10*3/ uL 1.6-8. 4 normal Not Available [facility] [address] [place] [address], [address], 08/17/2024 14:05:24 08/17/19 25 08/17/2024 COMPL ETE BLOOD COUNT lymphocyte,a bsolute 2.1 10*3/ uL 0.4-5. 1 normal Not Available [facility] [address] [place] [address], [address], 08/17/2024 14:05:24 08/17/19 25 08/17/2024 COMPL ETE BLOOD COUNT monocyte,abs olute 0.4 10*3/ uL 0.0-1. 2 normal Not Available [facility] [address] [place] [address], [address], 08/17/2024 14:05:24 08/17/19 25 08/17/2024 COMPL ETE BLOOD COUNT eosinophil,a bsolute 0.1 10*3/ uL 0.0-0. 8 normal Not Available [facility] [address] [place] [address], [address], 08/17/2024 14:05:24 08/17/19 25 08/17/2024 COMPL ETE BLOOD COUNT basophil,abs olute 0.1 10*3/ uL 0.0-0. 3 normal Not Available [facility] [address] [place] [address], [address], 08/17/2024 14:05:24 08/17/19 25 08/17/2024 COMPL ETE BLOOD COUNT % neutrophils 61.1 % 42.0-7 8.0 normal Not Available [facility] [address] [place] [address], [address], 08/17/2024 14:05:24 08/17/19 25 08/17/2024 COMPL ETE BLOOD COUNT % lymphocytes 30.0 % 11.0-4 7.0 normal Not Available [facility] [address] [place] [address], [address], 08/17/2024 14:05:24 08/17/19 25 08/17/2024 COMPL ETE BLOOD COUNT % monocytes 6.4 % 0.0-11 .0 normal Not Available [facility] [address] [place] [address], [address], 08/17/2024 14:05:24 08/17/19 25 08/17/2024 COMPL ETE BLOOD COUNT % eosinophils 1.7 % 0.0-7. 0 normal Not Available [facility] [address] [place] [address], [address], 08/17/2024 14:05:24 08/17/19 25 08/17/2024 COMPL ETE BLOOD COUNT % basophils 0.8 % 0.0-3. 0 normal Not Available [facility] [address] [place] [address], [address], 08/17/2024 14:05:24 08/17/19 25 08/17/2024 COMPL ETE BLOOD COUNT nucleated red cells 0.0 % 0.0-0. 9 normal Not Available [facility] [address] [place] [address], [address], 08/17/2024 14:05:24 08/17/19 25 08/17/2024 COMPL ETE BLOOD COUNT nucleated RBCs, absolute 0.00 10*3/ uL not estab. normal Not Available [facility] [address] [place] [address], [address], 08/17/2024 14:05:24 08/17/19 25 08/17/2024 ESR, AUTOM ATED ESR, automated 27 mm 0-19 high Not Available [facility] [address] [place] [address], [address], 08/17/2024 14:09:47 08/17/19 25 08/17/2024 COMP. METAB OLIC PANEL glucose 82 mg/dL 74-100 normal Not Available [facility] [address] [place] [address], [address], 08/17/2024 15:01:23 08/17/19 25 08/17/2024 COMP. METAB OLIC PANEL blood urea nitrogen 9 mg/dL 6-20 normal Not Available [facility] [address] [place] [address], [address], 08/17/2024 15:01:23 08/17/19 25 08/17/2024 COMP. METAB OLIC PANEL creatinine 0.77 mg/dL 0.50-0 .95 normal Not Available [facility] [address] [place] [address], [address], 08/17/2024 15:01:23 08/17/19 25 08/17/2024 COMP. METAB OLIC PANEL BUN/creatini ne ratio 12 (calc ) 10-20 normal Not Available [facility] [address] [place] [address], [address], 08/17/2024 15:01:23 08/17/19 25 08/17/2024 COMP. METAB OLIC PANEL sodium 140 mmol/ L 136-14 5 normal Not Available [facility] [address] [place] [address], [address], 08/17/2024 15:01:23 08/17/19 25 08/17/2024 COMP. METAB OLIC PANEL potassium 4.0 mmol/ L 3.4-5. 0 normal Not Available [facility] [address] [place] [address], [address], 08/17/2024 15:01:23 08/17/19 25 08/17/2024 COMP. METAB OLIC PANEL chloride 102 mmol/ L 98-107 normal Not Available [facility] [address] [place] [address], [address], 08/17/2024 15:01:23 08/17/19 25 08/17/2024 COMP. METAB OLIC PANEL carbon dioxide 24 mmol/ L 22-31 normal Not Available [facility] [address] [place] [address], [address], 08/17/2024 15:01:23 08/17/19 25 08/17/2024 COMP. METAB OLIC PANEL anion gap 14 (calc ) 7-25 normal Not Available [facility] [address] [place] [address], [address], 08/17/2024 15:01:23 08/17/19 25 08/17/2024 COMP. METAB OLIC PANEL calcium 9.2 mg/dL 8.6-10 .2 normal Not Available [facility] [address] [place] [address], [address], 08/17/2024 15:01:23 08/17/19 25 08/17/2024 COMP. METAB OLIC PANEL total protein 7.7 g/dL 6.4-8. 3 normal Not Available [facility] [address] [place] [address], [address], 08/17/2024 15:01:23 08/17/19 25 08/17/2024 COMP. METAB OLIC PANEL albumin 4.2 g/dL 3.5-5. 2 normal Not Available [facility] [address] [place] [address], [address], 08/17/2024 15:01:23 08/17/19 25 08/17/2024 COMP. METAB OLIC PANEL globulin 3.5 1.5-4. 5 normal Not Available [facility] [address] [place] [address], [address], 08/17/2024 15:01:23 08/17/19 25 08/17/2024 COMP. METAB OLIC PANEL albumin/glob ulin ratio 1.2 (calc ) 1.1-2. 5 normal Not Available [facility] [address] [place] [address], [address], 08/17/2024 15:01:23 08/17/19 25 08/17/2024 COMP. METAB OLIC PANEL bilirubin, total 0.4 mg/dL 0.1-1. 2 normal Not Available [facility] [address] [place] [address], [address], 08/17/2024 15:01:23 08/17/19 25 08/17/2024 COMP. METAB OLIC PANEL alkaline phosphatase 50 U/L 30-121 normal Not Available [facility] [address] [place] [address], [address], 08/17/2024 15:01:23 08/17/19 25 08/17/2024 COMP. METAB OLIC PANEL AST 26 U/L 0-32 normal Not Available [facility] [address] [place] [address], [address], 08/17/2024 15:01:23 08/17/19 25 08/17/2024 COMP. METAB OLIC PANEL ALT 24 U/L 0-33 normal Not Available [facility] [address] [place], [address], 08/17/2024 15:01:23 08/17/19 25 08/17/2024 COMP. METAB OLIC PANEL GFR 96 >= 60 normal NOT E New calcu latio n for GFR (CKD- EPI 2020) is formu lated witho ut race adjus tment facto rs at the recom menda tion of the Clark Barboza y Demond tran and Stephanie Abdi ty of Nephr ology . This calcu latio n has not been valid ated in pregn ant women . For pedia tric patie nts refer to https ://emerald ocasio.jamaal rg/pr aguila calzada s/KDO QI/gf r_cal culat orPed Not Available [facility] [address] [place] [address], [address], 08/17/2024 15:01:23 08/17/19 25 08/17/2024 C REACT JUDE PROTE IN C reactive protein 0.53 mg/dL 0.00-0 .49 high Not Available [facility] [address] [place] [address], [address], 08/17/2024 15:01:26 08/17/19 25 08/17/2024 HEPAT ITIS PANEL hepatitis A Ab, IgM NONREA CTIVE nonrea ctive normal Not Available [facility] [address] [place] [address], [address], 08/17/2024 18:37:12 08/17/19 25 08/17/2024 HEPAT ITIS PANEL hepatitis B surface Ag NONREA CTIVE nonrea ctive normal Not Available [facility] [address] [place], [address], 08/17/2024 18:37:12 08/17/19 25 08/17/2024 HEPAT ITIS PANEL hepatitis B core Ab,IgM NONREA CTIVE nonrea ctive normal Not Available [facility] [address] [place] [address], [address], 08/17/2024 18:37:12 08/17/19 25 08/17/2024 HEPAT ITIS PANEL hcab, reflex viral RNA qt NONREA CTIVE nonrea ctive normal Antib odies to HCV were not detec abdulaziz; does not exclu de the possi bilit y of expos ure to HCV. Not Available [facility] [address] [place] [address], [address], 08/17/2024 18:37:12 08/17/19 25 08/20/2024 QUANT IFERO N TB GOLD qtb gold NEGATI VE negati ve normal Negat jude test resul t. M. tuber culos is compl ex infec tion unlik atul. Not Available [facility] [address] [place] [address], [address], 08/20/2024 19:53:33 08/17/19 25 08/20/2024 QUANT IFERO N TB GOLD nil 0.05 IU/mL normal Not Available [facility] [address] [place] [address], [address], 08/20/2024 19:53:33 08/17/19 25 08/20/2024 QUANT IFERO N TB GOLD mitogen nil 7.31 IU/mL normal Not Available [facility] [address] [place] [address], [address], 08/20/2024 19:53:33 08/17/19 25 08/20/2024 QUANT IFERO N TB GOLD TB1 nil 0.00 IU/mL normal Not Available [facility] [address] [place] [address], [address], 08/20/2024 19:53:33 08/17/19 25 08/20/2024 QUANT IFERO N TB GOLD TB2 nil <0.00 IU/mL normal The Nil tube value refle cts the backg round inter feron gamma immun e respo nse of the patie nt's blood sampl e. This value has been subtr acted from the patie nt's displ ayed TB and Mitog en resul ts. Lower than expec abdulaziz resul ts with the Mitog en tube preve nt false -nega tive Quant ifero n readi ngs by detec ting a patie nt with a poten tial immun e suppr essiv e condi tion and/o r subop timal pre-a nalyt ical speci men handl ing. The TB1 Antig en tube is coate d with the M. tuber culos is-sp ecifi c antig ens desig kindra to elici t respo nses from TB antig en prime d CD4+ helpe r T-lym phocy elvin. The TB2 Antig en tube is coate d with the M. tuber culos is-sp ecifi c antig ens desig kindra to elici t respo nses from TB antig en prime d CD4+ helpe r and CD8+ cytot oxic T-lym phocy elvin. For addit ional infor anthony pedersen e refer to https ://ed banati on.qu nanette [employer]. GrowBLOX/f aq/FA Q204 (This link is being provi ded for infor jared gao/ educalfreda monroe l purpo ses only. ) Not Available [facility] [address] [place] [address], [address], 08/20/2024 19:53:33 12/23/1912/22/2024 COMPL ETE BLOOD COUNT white blood cells 7.1 10*3/ uL 3.8-10 .8 normal Not Available [facility] [place], [address], 12/22/2024 18:25:58 12/23/1912/22/2024 COMPL ETE BLOOD COUNT red blood cells 4.19 10*6/ uL 3.80-5 .20 normal Not Available [facility] [address] [place] [address], [address], 12/22/2024 18:25:58 12/23/19 25 12/22/2024 COMPL ETE BLOOD COUNT hemoglobin 13.1 g/dL 12.0-1 6.0 normal Not Available [facility] [address] [place] [address], [address], 12/22/2024 18:25:58 12/23/19 25 12/22/2024 COMPL ETE BLOOD COUNT hematocrit 38.0 % 35.0-4 7.0 normal Not Available [facility] [address] [place] [address], [address], 12/22/2024 18:25:58 12/23/19 25 12/22/2024 COMPL ETE BLOOD COUNT MCV 91 fL 80-100 normal Not Available [facility] [address] [place] [address], [address], 12/22/2024 18:25:58 12/23/19 25 12/22/2024 COMPL ETE BLOOD COUNT MCH 31 pg 26-35 normal Not Available [facility] [address] [place] [address], [address], 12/22/2024 18:25:58 12/23/19 25 12/22/2024 COMPL ETE BLOOD COUNT MCHC 34 g/dL 32-36 normal Not Available [facility] [address] [place] [address], [address], 12/22/2024 18:25:58 12/23/19 25 12/22/2024 COMPL ETE BLOOD COUNT RDW 12.0 % 11.0-1 5.0 normal Not Available [facility] [address] [place] [address], [address], 12/22/2024 18:25:58 12/23/19 25 12/22/2024 COMPL ETE BLOOD COUNT MPV 7.6 fL 6.2-10 .5 normal Not Available [facility] [address] [place] [address], [address], 12/22/2024 18:25:58 12/23/19 25 12/22/2024 COMPL ETE BLOOD COUNT platelet count 361 10*3/ uL 150-40 0 normal Not Available [facility] [address] [place] [address], [address], 12/22/2024 18:25:58 12/23/19 25 12/22/2024 COMPL ETE BLOOD COUNT neutrophil,a bsolute 4.8 10*3/ uL 1.6-8. 4 normal Not Available [facility] [address] [place] [address], [address], 12/22/2024 18:25:58 12/23/19 25 12/22/2024 COMPL ETE BLOOD COUNT lymphocyte,a bsolute 1.8 10*3/ uL 0.4-5. 1 normal Not Available [facility] [address] [place] [address], [address], 12/22/2024 18:25:58 12/23/19 25 12/22/2024 COMPL ETE BLOOD COUNT monocyte,abs olute 0.3 10*3/ uL 0.0-1. 2 normal Not Available [facility] [address] [place] [address], [address], 12/22/2024 18:25:58 12/23/19 25 12/22/2024 COMPL ETE BLOOD COUNT eosinophil,a bsolute 0.1 10*3/ uL 0.0-0. 8 normal Not Available [facility] [address] [place] [address], [address], 12/22/2024 18:25:58 12/23/19 25 12/22/2024 COMPL ETE BLOOD COUNT basophil,abs olute 0.1 10*3/ uL 0.0-0. 3 normal Not Available [facility] [address] [place] [address], [address], 12/22/2024 18:25:58 12/23/19 25 12/22/2024 COMPL ETE BLOOD COUNT % neutrophils 67.1 % 42.0-7 8.0 normal Not Available [facility] [address] [place] [address], [address], 12/22/2024 18:25:58 12/23/19 25 12/22/2024 COMPL ETE BLOOD COUNT % lymphocytes 26.0 % 11.0-4 7.0 normal Not Available [facility] [address] [place] [address], [address], 12/22/2024 18:25:58 12/23/19 25 12/22/2024 COMPL ETE BLOOD COUNT % monocytes 4.9 % 0.0-11 .0 normal Not Available [facility] [address] [place] [address], [address], 12/22/2024 18:25:58 12/23/19 25 12/22/2024 COMPL ETE BLOOD COUNT % eosinophils 1.1 % 0.0-7. 0 normal Not Available [facility] [address] [place] [address], [address], 12/22/2024 18:25:58 12/23/19 25 12/22/2024 COMPL ETE BLOOD COUNT % basophils 0.9 % 0.0-3. 0 normal Not Available [facility] [address] [place] [address], [address], 12/22/2024 18:25:58 12/23/19 25 12/22/2024 COMPL ETE BLOOD COUNT nucleated red cells 0.0 % 0.0-0. 9 normal Not Available [facility] [address] [place] [address], [address], 12/22/2024 18:25:58 12/23/1912/22/2024 COMPL ETE BLOOD COUNT nucleated RBCs, absolute 0.00 10*3/ uL not estab. normal Not Available [facility] [address] [place] [address], [address], 12/22/2024 18:25:58 12/23/19 25 12/22/2024 ESR, AUTOM ATED ESR, automated 33 mm 0-19 high Not Available [facility] [address] [place] [address], [address], 12/22/2024 20:51:48 12/23/19 25 12/22/2024 C REACT JUDE PROTE IN C reactive protein 0.64 mg/dL 0.00-0 .49 high Not Available [facility] [address] [place] [address], [address], 12/22/2024 22:07:17 12/23/19 25 12/22/2024 COMP. METAB OLIC PANEL glucose 78 mg/dL 74-100 normal Not Available [facility] [address] [place] [address], [address], 12/22/2024 22:07:18 12/23/19 25 12/22/2024 COMP. METAB OLIC PANEL blood urea nitrogen 11 mg/dL 6-20 normal Not Available [facility] [address] [place] [address], [address], 12/22/2024 22:07:18 12/23/19 25 12/22/2024 COMP. METAB OLIC PANEL creatinine 0.82 mg/dL 0.50-0 .95 normal Not Available [facility] [address] [place] [address], [address], 12/22/2024 22:07:18 12/23/19 25 12/22/2024 COMP. METAB OLIC PANEL BUN/creatini ne ratio 13 (calc ) 10-20 normal Not Available [facility] [address] [place] [address], [address], 12/22/2024 22:07:18 12/23/19 25 12/22/2024 COMP. METAB OLIC PANEL sodium 138 mmol/ L 136-14 5 normal Not Available [facility] [address] [place] [address], [address], 12/22/2024 22:07:18 12/23/19 25 12/22/2024 COMP. METAB OLIC PANEL potassium 4.0 mmol/ L 3.4-5. 0 normal Not Available [facility] [address] [place] [address], [address], 12/22/2024 22:07:18 12/23/19 25 12/22/2024 COMP. METAB OLIC PANEL chloride 104 mmol/ L 98-107 normal Not Available [facility] [address] [place] [address], [address], 12/22/2024 22:07:18 12/23/19 25 12/22/2024 COMP. METAB OLIC PANEL carbon dioxide 18 mmol/ L 22-31 low Not Available [facility] [address] [place] [address], [address], 12/22/2024 22:07:18 12/23/19 25 12/22/2024 COMP. METAB OLIC PANEL anion gap 16 (calc ) 7-25 normal Not Available [facility] [address] [place] [address], [address], 12/22/2024 22:07:18 12/23/19 25 12/22/2024 COMP. METAB OLIC PANEL calcium 9.2 mg/dL 8.6-10 .2 normal Not Available [facility] [address] [place] [address], [address], 12/22/2024 22:07:18 12/23/19 25 12/22/2024 COMP. METAB OLIC PANEL total protein 7.7 g/dL 6.4-8. 3 normal Not Available [facility] [address] [place] [address], [address], 12/22/2024 22:07:18 12/23/19 25 12/22/2024 COMP. METAB OLIC PANEL albumin 4.1 g/dL 3.5-5. 2 normal Not Available [facility] [address] [place] [address], [phone], 12/22/2024 22:07:18 12/23/19 25 12/22/2024 COMP. METAB OLIC PANEL globulin 3.6 1.5-4. 5 normal Not Available [facility] [address] [place] [address], [phone], 12/22/2024 22:07:18 12/23/19 25 12/22/2024 COMP. METAB OLIC PANEL albumin/glob ulin ratio 1.1 (calc ) 1.1-2. 5 normal Not Available [facility] [address] [place] [address], [phone], 12/22/2024 22:07:18 12/23/19 25 12/22/2024 COMP. METAB OLIC PANEL bilirubin, total 0.3 mg/dL 0.1-1. 2 normal Not Available [facility] [address] [place] [address], [phone], 12/22/2024 22:07:18 12/23/19 25 12/22/2024 COMP. METAB OLIC PANEL alkaline phosphatase 58 U/L 30-121 normal Not Available [facility] [address] [place] [address], [address], 12/22/2024 22:07:18 12/23/19 25 12/22/2024 COMP. METAB OLIC PANEL AST 21 U/L 0-32 normal Not Available [facility] [address] [place] [address], [address], 12/22/2024 22:07:18 12/23/19 25 12/22/2024 COMP. METAB OLIC PANEL ALT 16 U/L 0-33 normal Not Available [facility] [address] [place] [address], [address], 12/22/2024 22:07:18 12/23/19 25 12/22/2024 COMP. METAB OLIC PANEL eGFR 89 >= 60 normal NOT E New calcu latio n for GFR (CKD- EPI 2020) is formu lated witho ut race adjus tment facto rs at the recom menda tion of the Clark Barboza y Demond tran and Stephanie Abdi ty of Nephr ology . This calcu latio n has not been valid ated in pregn ant women . For pedia tric patie nts refer to https ://emerald w.cristin underwoody.o rg/pr ofess ional s/KDO QI/gf r_cal culat orPed Not Available [facility] [address] [place], [address], 12/22/2024 22:07:18 08/17/19 25 08/17/2024 XR, hand, 3 or more view [address] [address] Patisigrid t Name: SOURAV siddiqui : 978 Patisigrid t 95 Orderi ng [facility] er: DAMON STEIN TRISTAN EXAM DATE: 2024 EXAM: XR YULISA HANDS 3VWS HISTOR Y: Bilate ral hand pain COMPAR KVNG: None. FINDIN GS: There are modera te degene rative change s in the first carpom etacar pal joint bilate rally. There are mild degene rative change s in the trisca phe joint and radioc arpal joint. There are minima l to mild degene rative change s in the interp halang eal joints . No erosio n is identi fied. IMPRES JESUSITA: 1. There are degene rative change s of both hands which are most promin ent at the first carpom etacar pal joint. Interp reted By: Gabe strong MD Electr onical ly Signed By: Gabe strong MD on 025 12:06 PM [id number] [facility] [address], [place], [address], 09/25/2024 23:01:28 02/08/17/2024 XR, sacro iliac joint (s), 3 or more view [facility] [address] [place] [address] Patien t Name: SOURAV siddiqui : 978 John t 95 Orderi ng [facility] er: DAMON STEIN TRISTAN EXAM DATE: 2024 EXAM: XR SACROI LIAC JOINTS MIN 3 VWS HISTOR Y: Pelvic pain. COMPAR KVNG: None. FINDIN GS: The bones of the pelvis are normal in alignm ent. There are mild degene rative change s in the SI joints . There is no fractu re. Clips projec t in the pelvis consis tent with a prior tubal ligati on. IMPRES JESUSITA: 1. There are mild degene rative change s in the SI joints . Interp reted By: Gabe strong MD Electr onical ly Signed By: Gabe strong MD on 025 12:08 PM [id number] [facility] [address], [address], 09/25/2024 23:01:28 Result Notes Documentation Provider Name and Address Organization Details Recorded Time Xr, Hand, 3 Or More View : [address] [address] Patient Name: MICHELLE PÉREZ Patient : 1980 Patient Ordering Provider: DAMON HERRERA EXAM DATE: 08/17/2024 EXAM: XR YULISA HANDS 3VWS HISTORY: Bilateral hand pain COMPARISON: None. FINDINGS: There are moderate degenerative changes in the first carpometacarpal joint bilaterally. There are mild degenerative changes in the triscaphe joint and radiocarpal joint. There are minimal to mild degenerative changes in the interphalangeal joints. No erosion is identified. IMPRESSION: 1. There are degenerative changes of both hands which are most prominent at the first carpometacarpal joint. Interpreted By: Chris Reese MD N HERRERA MD [address] [place], [address], [facility] 09/25/2024 23:01:28 Xr, Sacroiliac Joint(s), 3 Or More View : [facility] [address] [place] [address] Patient Name: MICHELLE PÉREZ Patient : 1980 Patient Ordering Provider: DAMON HERRERA EXAM DATE: 08/17/2024 EXAM: XR SACROILIAC JOINTS MIN 3 VWS HISTORY: Pelvic pain. COMPARISON: None. FINDINGS: The bones of the pelvis are normal in alignment. There are mild degenerative changes in the SI joints. There is no fracture. Clips project in the pelvis consistent with a prior tubal ligation. IMPRESSION: 1. There are mild degenerative changes in the SI joints. Interpreted By: Chris Reese MD N HERRERA MD [address] [place], [address], [facility] 09/25/2024 23:01:28 Procedures Surgical History Date Name Laterality Status Provider Name and Address Organization Details Recorded Time 5 Skyrizi Infusion completed Basil Gaines [facility] 11/02/2024 09:09:27 5 Skyrizi Infusion completed Jose Alfredo Chen [facility] 10/05/2024 08:58:32 5 Skyrizi Infusion completed Jose Alfredo Chen [facility] 09/07/2024 09:50:20 procedure on knee completed [facility] 08/17/2024 10:27:37 section completed [facility] 08/17/2024 10:27:45 Imaging Results None recorded. Procedure Notes None recorded. Medical Equipment None Reported. Allergies Allergen ID Allergen Name Allergen Category Reaction Reaction Severity Criticality Documentation Date Start Date Code Code System Note Provider Name and Address Organization Details Recorded Time 588449 Remicade medicatio n decreased blood pressure severe Not available 08/17/2024 59121 0 RxNorm vomit ting blood [facility] 5 10:24:41 Medications Name Sig Start Date Stop Date Status Note LastModified by Organization Details LastModified Time rosuvasta tin 5 mg tablet Take 1 tablet every day by oral route. active Not Available Not Available No t Available Lo Loestrin Fe 1 mg-10 mcg (24)/10 mcg (2) tablet Take 1 tablet every day by oral route. active Not Available Not Available No t Available Humira(CF ) Pen 40 mg/0.4 mL subcutane ous kit Inject 0.4 mL every 2 weeks by subcutan eous route. 11/17 completed Was taking for crohns. Insuranc e has denied it currentl y Not Available Not Available Not Available Skyrizi 60 mg/mL intraveno us solution Inject 600 mg every 4 weeks by intraven ous route for 56 days. 11/17 completed Skyrizi 600 mg - 0-4-8 wks (#3 today) - treatmen t complete - ICD 10K50.90 Not Available Not Available Not Available Skyrizi 180 mg/1.2 mL (150 mg/mL) subcutane ous wearable injector Inject by subcutan eous route for 60 days. active Not Available Not Available No t Available Vitals Date Recorded Body weight Body mass index (BMI) Body height Respiratory rate Heart rate Oxygen saturation Oxygen saturation in Arterial blood by Pulse oximetry Systolic And Diastolic Provider Name and Address Organization Details Last Updated DateTime 5 92903.1 3 g 31.5 kg/m2 154.94 cm 14 /min 71 /min 100 % 100 % 134/80 mm[Hg] Nevaeh [facility] 5 10:28:57 Date Recorded Body height Body mass index (BMI) Body weight Heart rate Oxygen saturation Oxygen saturation in Arterial blood by Pulse oximetry Systolic And Diastolic Provider Name and Address Organization Details Last Updated DateTime 5 154.94 cm 30.8 kg/m2 50413.5 6 g 88 /min 98 % 98 % 120/80 mm[Hg] Charity Adams [facility] 5 09:34:25 Social History Question Answer Notes LastModified by Organizat ion Details LastModified Time Tobacco Smoking Status Never Smoker [place] [facility] 08/17/2024 10:27:10 What Was The Date Of Your Most Recent Tobacco Screening? 08/17/2024 Information not available 08/17/2024 Sex: Female Functional Status Question Answer Note LastModified by Organization D etails LastModified Time What is your level of alcohol consumption? None Information not available 08/17/2024 Mental Status None recorded. Family History Relationship Description Onset Age of this Age Resolved Age Notes LastModified by Organization Details LastModified Time Mother Arthritis 50 Not availabl e 08/17/2024 09:12:39 Father Arthritis 40 Not availabl e 08/17/2024 09:12:39 Medical History Condition Response Emphysema N COPD N Arthritis Y Acid Reflux (GERD) N Rheumatoid Arthritis N Diabetes N Bleeding Disorder N Asthma N Heart Disease N Hypertension N Gynecological HistoryNo gynecological history recorded. Obstetrics History GPAL:G 0 P 0 0 0 0 Past Encounters Encounter ID Performer Location Encounter Start Date Encounter Closed Date Diagnosis/Indication Diagnosis SNOMED-CT Code Diagnosis ICD10 Code Diagnosis Note [id number] DAMON HERRERA MD RHEUMATOL [facility] [address] [place] [address] 08/17/2024 09:08:45 08/21/2024 04:14:38 Crohn's disease 33859524 K50.90 + EDUARDO 1:160, - RF, - CCP Previous Rx: ?azathiopr ine, 6-MP, budesonide , steroids, Humira, Remicade (infusion reaction) - PA Skyrizi infusions- - 600 mg at week 0, 4, and 8 followed by subQ 360 mg subQ syringe at week 12, then every 8 weeks- will get additional labs as below- QTB and hepatitis panel- XR of the SI joints- XR of the hands Long-term current use of drug therapy 019653366 Z79.899 - labs every 6 months on current medication s We reviewed the side effects of Skyrizi (IL-23 inhibitor) including but not limited to infection, hypersensi tivity, fatigue, headache. We discussed that these medication s can cause reactivati on of tuberculos is or viral hepatitis and we need to check these prior to starting medication . We discussed appropriat e immunizati ons including flu, pneumonia, and shingles vaccines. No live vaccines. Fatigue 24294093 R53.83 - Address via management of primary conditions . Monitor response to new treatment regimen. 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 Anti-nucle ar factor detected 718447701 R76.8 - positive EDUARDO possibly linked to Crohn s disease [id number] DAMON HERRERA MD [place]HEUMATOL [place] [address] 09/07/2024 08:09:28 09/07/2024 09:58:17 Crohn's disease 84733945 K50.90 [id number] DAMON HERRERA MD [facility]UMAT[facility] [place] [address] 10/05/2024 07:32:32 10/05/2024 09:06:33 Crohn's disease 30178612 K50.90 [id number] DAMON HERRERA MD [facility] [place] [address] 11/02/2024 07:25:15 11/02/2024 09:11:09 Gastrointestinal Crohn's disease 783577779 K50.90 [id number] DAMON HERRERA MD [facility]UMATOL [facility] [address] [place] [address] 11/17/2024 09:08:54 11/18/2024 04:50:32 Crohn's disease 95030080 K50.90 + EDUARDO 1:160, - RF, - CCP Previous Rx: ?azathiopr ine, 6-MP, budesonide , steroids, Humira, Remicade (infusion reaction) XR of the SI joints with mild degenerati ve changes. XR of the hands with osteoarthr itis at the thumbs -continue Skyrizi subQ 180 mg every 8 weeks. She completed the loding doses 600 mg IV at week 0, 4, and 8. Long-term current use of drug therapy 947413825 Z79.899 - labs every 6 months on current medication s We reviewed the side effects of Skyrizi (IL-23 inhibitor) including but not limited to infection, hypersensi tivity, fatigue, headache. We discussed that these medication s can cause reactivati on of tuberculos is or viral hepatitis and we need to check these prior to starting medication . We discussed appropriat e immunizati ons including flu, pneumonia, and shingles vaccines. No live vaccines. Enteropath ic arthritis of hand 0804387045 42708 M07.649 - immunosupp ression as above- Consider methotrexa te adjunct if symptoms persist Anti-nucle ar factor detected 910207856 R76.8 - positive EDUARDO possibly linked to Crohn s disease Health Concerns Section Related Observation LastModified by Organization Detai ls LastModified Time None Recorded Concern Status LastModified by Organization Details LastModified Time None Recorded Advance Directives Directive None Recorded Payers Insurance Date Sequence Insurance Name Policy Number Policy Diaz Covered Member ID Diaz Member ID Guarantor Name 12/26/2024 1 [facility]AN [facility] [id number] Michelle Pérez [id number] Michelle Pérez 10/11/2024 ABBVIE Michelle Pérez [id number] Michelle Pérez 08/24/2024 SKYRIZI COMPLETE Michelle Pérez [id number] Michelle Pérez Notes Date Note Type Note Provider Name and Address Organization Details Recorded Time 08/17/2024 text/html ROS as noted in the HPI Michelle Pérez is a 44-year-old female presenting with joint pain and positive anti-nuclear antibody (EDUARDO). She has a longstanding history of Crohn's disease, initially diagnosed in June 2000, for which she was prescribed Humira in 2007, contributing to significant disease control over the past four years. Despite the control of gastrointestinal symptoms, her arthritis has persisted, predominantly affecting her hands with episodes of swelling, stiffness, and pain. She experiences morning stiffness that lasts approximately 30 minutes, impacting her ability to perform activities like opening bottles. Past medical history indicates that joint pain began in childhood, subsided during adolescence, but recurred in adulthood. Her arthritis is more pronounced in the right hand a condition exacerbated by familial predisposition, as both parents suffer from arthritis. She a shoulder in 0976-7257 and experiences chronic shoulder pain. Additionally, she reported some past ocular symptoms, including eye sensitivity and swelling, and fatigue. Recently, insurance complications have interrupted her Humira treatment due to coverage issues, compelling her to explore other biologics. She also notes that the swelling and pain has worsened despite the Humira. She denied numbness or tingling except for occasional numbness during specific arm positions, and there is no significant familial history of Raynaud's phenomenon, although her sister has Raynaud's. DAMON HERRERA MD [address] [place], [address], [facility] 08/20/2024 23:16:04 11/17/2024 text/html ROS as noted in the HPI Michelle Pérez is a 44-year-old female presenting with joint pain and positive anti-nuclear antibody (EDUARDO). She has a longstanding history of Crohn's disease, initially diagnosed in June 2000, for which she was prescribed Humira in 2007, contributing to significant disease control over the past four years. Despite the control of gastrointestinal symptoms, her arthritis has persisted, predominantly affecting her hands with episodes of swelling, stiffness, and pain. She experiences morning stiffness that lasts approximately 30 minutes, impacting her ability to perform activities like opening bottles. She has started Skyrizi and has finished the skyrizi IV loading doses. She has the subQ injections that she will start on November 30 and give herself every 8 weeks.She feels that this has significantly helped her joint pain and her Crohn's is much better.She has established with Dr. Kan and she has a colonoscopy scheduled.No infections, problems with the medication, or hospitalizations. She a shoulder in 3033-8239 and experiences chronic shoulder pain. Additionally, she reported some past ocular symptoms, including eye sensitivity and swelling, and fatigue. Previous Rx: Humira (quit working) DAMON HERRERA MD [address] [place], [address], [facility] 11/17/2024 10:23:59 OBGyn Episode No OBEpisode recorded.
--- OUTSIDE RECORDS SUMMARY | 2025-01-18 09:20 | XMS_ITS | Clinical Summary ---
Author Organization [facility] Address [address] [place] [address] Care Team Providers Care Rn Care Manager Name Role Phone System, Provider Not In Primary Care Provider Un available Social History Tobacco Use Types Packs/Day Years Used Date Smoking Tobacco: Never Assessed Comments Unknown Sex and Gender Information Value Date Recorded Sex Assigned at Not on file Legal Sex Female 1:31 PM EST Gender Identity Not on file Sexual Orientation Not on file Plan of Treatment Health Maintenance Due Date Last Done Comments Breast Cancer Screening 1978 CT Colonography 1978 Colonoscopy 1978 Colorectal Cancer Screening 1980 FIT-DNA 1978 FIT 1980 FOBT 1980 Sigmoidoscopy 1978 Hepatitis B (HepB) Vaccine ( 1 of 3 - 19+ 3-dose series) 1997 Tdap/Td Vaccine >11 yo (1 - Tdap) 1997 Cervical Cancer Screening 1999 Annual SDOH Screening 06/28/2024 Influenza Vaccine (#1) 2025 HPV Vaccine Aged Out No longer eligi ble based on patient's age to complete this topic Haemophilus Influenzae Type B (Hib) Vaccine Aged Out No longer eligible b ased on patient's age to complete this topic Hepatitis A (HepA) Vaccine Aged Out N o longer eligible based on patient's age to complete this topic Meningococcal ACWY Aged Out No longer eligible based on patient's age to complete this topic Pneumococcal Vaccines 6-49 yo Risk Aged Out No longer eligible based on patient's age to complete this topic Polio (IPV) Aged Out No longer eligi ble based on patient's age to complete this topic Rotavirus (RV) Vaccine Aged Out No lo nger eligible based on patient's age to complete this topic Insurance [facility] [place] [address] Care Teams Rn Care Manager Relationship Specialty Start Date End Date System, Provider Not In PCP - General 07/13/13
== END 2025-01-18 23:59 | disposition home or self-care (01) ==
PROVIDERS: PCP Nurse Practitioner Family; Visit Provider Nurse Practitioner Family
DX: M19.072 Primary osteoarthritis, left ankle and foot (principal); M19.071 Primary osteoarthritis, right ankle and foot; K50.90 Crohn's disease, unspecified, without complications; M77.9 Enthesopathy, unspecified
CPT/HCPCS: 73630

== ENCOUNTER 2025-02-12 06:58 | Outpatient (CLI) | payer BC, SELFPAY ==
--- OUTSIDE RECORDS SUMMARY | 2025-02-12 07:00 | XMS_ITS | Continuity of Care Document ---
Author Name [facility] Organization [facility] Care Team Providers Care Performing Artist Name Role Phone [facility] Unavailable Unavailable Problems Combined list of problems [...] Disposition Source [facility] OUTPATIENT [id number] BREEZY HENLEY 09/04 Released w/o Limitations [facility] OUTPATIENT [id number] JUN OJEDA 09/04 Released w/o Limitations [facility] ) MARQUISE Rodrigues(Medica l Examinati on) OUTPATIENT [id number] PART 1 OF SARAHYI YOSELIN JAIMES 09/04 Released w/o Limitations MARQUISE Rodrigues(Medi triny Examina tion) MARQUISE Rodrigues(Medica l Examinati on) OUTPATIENT [id number] CONCHITA LAYNE 09/04 Released w/o Limitations [facility] [place] [place](Medi triny Examina tion) [facility] Outpatient Encounter [id number] 10/25 [facility] Outpatient Encounter [id number] 10/25 [facility] Out[facility] Encounter [id number] 12/25 [facility] Outpatient Encounter [id number] 12/25 [facility] Procedures Combined list of: 1) Procedures from Department of Veterans Affairs facilities [facility], not all [place] non-surgical procedures are included; 2) All procedures from the Department of Defense facilities. Procedure Procedure Type Code Date Perfomer Comments Sour e AUDIOMETRIC TESTING OF GROUPS 09/05/2007 [facility] SCREENING TEST OF VISUAL ACUITY, QUANTITATIVE, BILATERAL 09/05/2007 [facility] SCREENING PAPANICOLAOU SMEAR; OBTAINING, PREPARING AND CONVEYANCE OF CERVICAL OR VAGINAL SMEAR TO LABORATORY 07/07/2005 [facility] SCREENING TEST OF VISUAL ACUITY, QUANTITATIVE, BILATERAL 07/01/2005 [facility] ARTHROCENTESIS, ASPIRATION AND/OR INJECTION, SMALL JOINT OR BURSA (EG, FINGERS, TOES); WITHOUT ULTRASOUND GUIDANCE 04/14/2005 [facility] SCREENING PAPANICOLAOU SMEAR; OBTAINING, PREPARING AND CONVEYANCE OF CERVICAL OR VAGINAL SMEAR TO LABORATORY 04/10/2005 [facility] Audiometry Group Testing Audiometry Group Testing [id number] 09/05/2007 JUN OJEDA [facility] Threshold Audiogram (Pure Tone) Threshold Audiogram (Pure Tone) [id number] 09/05/2007 JUN OJEDA [facility] Screening Test Of Visual Acuity, Quantitative, Bilateral Screening Test Of Visual Acuity, Quantitative, Bilateral 66319 09/05/2007 BREEZY WALDROP [facility] Social History Combined list of available smoking, tobacco, and other social history from Department of Defense and Veterans Affairs facilities. Social History Type Response Date Comment [facility] danelle This section is an empty social history section. [facility]
--- OUTSIDE RECORDS SUMMARY | 2025-02-12 07:02 | XMS_ITS | Clinical Summary ---
Author Organization [facility] Address [address] [place] [address] Care Team Providers Care Reptile Farmer Name Role Phone System, Provider Not In [...] patient's age to complete this topic Insurance [facility] Care Teams Reptile Farmer Relationship Specialty Start Date End Date System, Provider Not In PCP - General 07/13/13
[2025-02-12 07:54] LABS: Hematocrit 37.6 % (37.0-47.0); Hemoglobin 12.5 g/dL (12.2-16.2); Immature Granulocytes % 0.2 %; Mean Corpuscular HGB Conc 33.2 g/dL (31.8-35.4); Mean Corpuscular Hemoglobin 30.6 pg (27.0-31.2); Mean Corpuscular Volume 91.9 fl (81-99); Nucleated Red Blood Cells % 0 %; Platelet Count 309 K/mm3 (142-424); Red Blood Count 4.09 M/mm3 (4.20-5.40); Red Cell Distribution Width-SD 38.5 fL; White Blood Count 6.0 K/mm3 (4.8-10.8)
[2025-02-12 08:15] LABS: Chloride 107 mmol/L (98-107)
[2025-02-12 08:16] LABS: Albumin Level 4.1 g/dl (3.5-5.0); Potassium 4.0 mmoL/L (3.5-5.1); Sodium 139 mmol/L (136-145)
[2025-02-12 08:18] LABS: Alanine Aminotransferase 21 U/L (12-78); Albumin/Globulin Ratio 1.4 (1.1-1.8); Alkaline Phosphatase 65 U/L (38-126); Anion Gap 12.0 mEq/L (5-15); Aspartate Amino Transferase 26 U/L (14-36); Bilirubin,Total 0.4 mg/dl (0.2-1.3); Blood Urea Nitrogen 11 mg/dl (7-17); Carbon Dioxide 24 mmol/L (22.0-30.0); Creatinine,Serum 0.80 mg/dl (0.52-1.04); Estimated Glomerular Filt Rate 77 ml/min (>60); GFR (African American) 93 ML/MIN (>60); Globulin 3.0 g/dL (1.3-3.2); Total Protein,Serum 7.1 g/dl (6.3-8.2)
[2025-02-12 08:19] LABS: Calcium 9.2 mg/dl (8.4-10.2); Glucose 88 mg/dl (74-100)
[2025-02-12 08:24] LABS: C-Reactive Protein 7.5 mg/L (0-4)
== END 2025-02-12 23:59 | disposition home or self-care (01) ==
LOC: LAB 07:00
PROVIDERS: PCP Nurse Practitioner Family; Visit Provider Internal Medicine Rheumatology
DX: K50.90 Crohn's disease, unspecified, without complications (principal)
CPT/HCPCS: 36415; 80053; 85025; 85651; 86140

== ENCOUNTER 2025-03-12 15:44 | Outpatient (CLI) | payer BC, SELFPAY ==
--- OUTSIDE RECORDS SUMMARY | 2025-03-12 15:49 | XMS_ITS | Clinical Summary ---
Author Organization [facility] Address [address] [place] [address] Care Team Providers Care Belt Measurer Name Role Phone System, Provider Not In [...] patient's age to complete this topic Insurance [facility] Care Teams Belt Measurer Relationship Specialty Start Date End Date System, Provider Not In PCP - General 07/13/13
[2025-03-12 16:29] LABS: Hematocrit 34.4 % (37.0-47.0); Hemoglobin 11.6 g/dL (12.2-16.2); Immature Granulocytes % 0.2 %; Mean Corpuscular HGB Conc 33.7 g/dL (31.8-35.4); Mean Corpuscular Hemoglobin 30.3 pg (27.0-31.2); Mean Corpuscular Volume 89.8 fl (81-99); Nucleated Red Blood Cells % 0 %; Platelet Count 313 K/mm3 (142-424); Red Blood Count 3.83 M/mm3 (4.20-5.40); Red Cell Distribution Width-SD 37.3 fL; White Blood Count 5.8 K/mm3 (4.8-10.8)
[2025-03-12 18:09] LABS: Alanine Aminotransferase 32 U/L (12-78); Albumin Level 3.9 g/dl (3.5-5.0); Albumin/Globulin Ratio 1.4 (1.1-1.8); Alkaline Phosphatase 60 U/L (38-126); Anion Gap 8.9 mEq/L (5-15); Aspartate Amino Transferase 41 U/L (14-36); Bilirubin,Total 0.3 mg/dl (0.2-1.3); Blood Urea Nitrogen 9 mg/dl (7-17); Calcium 8.7 mg/dl (8.4-10.2); Carbon Dioxide 25 mmol/L (22.0-30.0); Chloride 106 mmol/L (98-107); Creatinine,Serum 0.90 mg/dl (0.52-1.04); Estimated Glomerular Filt Rate 67 ml/min (>60); GFR (African American) 82 ML/MIN (>60); Globulin 2.8 g/dL (1.3-3.2); Glucose 93 mg/dl (74-100); Potassium 3.9 mmoL/L (3.5-5.1); Sodium 136 mmol/L (136-145); Total Protein,Serum 6.7 g/dl (6.3-8.2)
[2025-03-12 18:15] LABS: C-Reactive Protein 9.1 mg/L (0-4)
== END 2025-03-12 23:59 | disposition home or self-care (01) ==
LOC: LAB 15:46
PROVIDERS: PCP Nurse Practitioner Family; Visit Provider Internal Medicine Rheumatology
DX: Z79.899 Other long term (current) drug therapy (principal)
CPT/HCPCS: 36415; 80053; 85025; 85651; 86140

== ENCOUNTER 2025-03-22 14:57 | Outpatient (CLI) | payer BC, SELFPAY ==
--- NOTE | 2025-03-22 15:15 | ECG_ITS ---
APPROVED REPORT Exam: Resting ECG HR:87 bpm ECG Measurements Heart Rate 87 AXES WV 136 P 68 QRSd 80 QRS 86 QT 338 T 43 QTc 383 Conclusion SINUS RHYTHM WITH SINUS ARRHYTHMIA NORMAL ECG UNCONFIRMED REPORT Electronically signed by : Héctor Henderson MD 03/23/2025 08:40:29
--- OUTSIDE RECORDS SUMMARY | 2025-03-22 15:22 | XMS_ITS | Clinical Summary ---
Author Organization [facility] Address [address] [place] [address] Care Team Providers Care Letterset Press Set Up Operator Name Role Phone System, Provider Not In [...] patient's age to complete this topic Insurance [facility] Care Teams Letterset Press Set Up Operator Relationship Specialty Start Date End Date System, Provider Not In PCP - General 07/13/13
== END 2025-03-22 23:59 | disposition home or self-care (01) ==
LOC: RT 14:59
PROVIDERS: PCP Nurse Practitioner Family; Visit Provider Nurse Practitioner Family
DX: I49.8 Other specified cardiac arrhythmias (principal); R00.0 Tachycardia, unspecified; R94.31 Abnormal electrocardiogram [ECG] [EKG]; R00.2 Palpitations
CPT/HCPCS: 93005; 93225; 93226

== ENCOUNTER 2025-04-06 13:35 | Outpatient (CLI) | payer BC, SELFPAY ==
[2025-04-06 14:20] LABS: Hematocrit 37.1 % (37.0-47.0); Hemoglobin 12.4 g/dL (12.2-16.2); Immature Granulocytes % 0.6 %; Mean Corpuscular HGB Conc 33.4 g/dL (31.8-35.4); Mean Corpuscular Hemoglobin 30.8 pg (27.0-31.2); Mean Corpuscular Volume 92.3 fl (81-99); Nucleated Red Blood Cells % 0 %; Platelet Count 338 K/mm3 (142-424); Red Blood Count 4.02 M/mm3 (4.20-5.40); Red Cell Distribution Width-SD 39.8 fL; White Blood Count 5.3 K/mm3 (4.8-10.8)
[2025-04-06 14:50] LABS: Alanine Aminotransferase 21 U/L (12-78); Albumin Level 3.9 g/dl (3.5-5.0); Albumin/Globulin Ratio 1.4 (1.1-1.8); Alkaline Phosphatase 67 U/L (38-126); Anion Gap 16.2 mEq/L (5-15); Aspartate Amino Transferase 25 U/L (14-36); Bilirubin,Total 0.4 mg/dl (0.2-1.3); Blood Urea Nitrogen 11 mg/dl (7-17); Calcium 9.5 mg/dl (8.4-10.2); Carbon Dioxide 26 mmol/L (22.0-30.0); Chloride 101 mmol/L (98-107); Creatinine,Serum 0.80 mg/dl (0.52-1.04); Estimated Glomerular Filt Rate 77 ml/min (>60); GFR (African American) 93 ML/MIN (>60); Globulin 2.7 g/dL (1.3-3.2); Glucose 105 mg/dl (74-100); Potassium 4.2 mmoL/L (3.5-5.1); Sodium 139 mmol/L (136-145); Total Protein,Serum 6.6 g/dl (6.3-8.2)
[2025-04-06 14:55] LABS: C-Reactive Protein 5.4 mg/L (0-4)
== END 2025-04-06 23:59 | disposition home or self-care (01) ==
LOC: LAB 13:36
PROVIDERS: PCP Nurse Practitioner Family; Visit Provider Internal Medicine Rheumatology
DX: Z79.899 Other long term (current) drug therapy (principal)
CPT/HCPCS: 36415; 80053; 85025; 85651; 86140

== ENCOUNTER 2025-05-07 07:06 | Outpatient (CLI) | payer BC, SELFPAY ==
--- OUTSIDE RECORDS SUMMARY | 2025-05-07 07:07 | XMS_ITS | Continuity of Care Document ---
Author Name [facility] Organization [facility] Care Team Providers Care Ticket Writer Name Role Phone [facility] Unavailable Unavailable Problems Combined list of problems from Department of Defense and Veterans Affairs facilities. It does not include entries that were removed or entered in error. 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 Active Condition Pre-existing dx of Chron's Dz DoD visit: ears/hearing exam for hearing conservation, treatment Active Condition DoD routine pre-employment screening examination Active Condition see 2807/2808 DoD visit for: [...] Disposition Source [facility]QUISE Rodrigues([facility]) OUTPATIENT [id number] BREEZY HENLEY 09/04 Released w/o Limitations [facility]) [facility]) OUTPATIENT [id number] JUN OJEDA 09/04 Released w/o Limitations [facility] ) MARQUISE Rodrigues([facility] Examin[facility]) OUTPATIENT [id number] PART 1 OF YOSELIN AKINS 09/04 Released w/o Limitations MARQUISE Rodrigues(Medi triny Examina tion) MARQUISE Rodrigues(Medica l Examin[facility] on) OUTPATIENT [id number] CONCHITA LAYNE 09/04 Released w/o Limitations [facility] [place] [place](Medi triny Examina tion) [facility] Outpatient Encounter [id number] [phone] 10/25 [place] [facility] [place] Outpatient Encounter [id number] 10/25 [place] [facility] [place] Outpatient Encounter [id number] [id number] 12/25 [place] [facility] [place] Outpatient Encounter [id number] [id number] 12/25 [place] [facility] Procedures Combined list of: 1) Procedures from Department of [facility], not all [place] non-surgical procedures are included; 2) All procedures from the Department of Defense facilities. Procedure Procedure Type Code Date Perfomer Comments Sour e AUDIOMETRIC TESTING OF GROUPS 09/05/2007 [facility] SCREENING TEST OF VISUAL ACUITY, QUANTITATIVE, BILATERAL 09/05/2007 [facility] SCREENING [place]AP[place] SMEAR; OBTAINING, PREPARING AND CONVEYANCE OF CERVICAL OR VAGINAL SMEAR TO LABORATORY 07/07/2005 [facility] SCREENING TEST OF VISUAL ACUITY, QUANTITATIVE, BILATERAL 07/01/2005 [facility] ARTHROCENTESIS, ASPIRATION AND/OR INJECTION, SMALL JOINT OR BURSA (EG, FINGERS, TOES); WITHOUT ULTRASOUND GUIDANCE 04/14/2005 [facility] SCREENING [place] SMEAR; OBTAINING, PREPARING AND CONVEYANCE OF CERVICAL OR VAGINAL SMEAR TO LABORATORY 04/10/2005 [facility] Audiometry Group Testing Audiometry Group Testing [id number] 09/05/2007 JUN OJEDA DoD Threshold Audiogram (Pure Tone) Threshold Audiogram (Pure Tone) [id number] 09/05/2007 JUN OJEDA DoD Screening Test Of Visual Acuity, Quantitative, Bilateral Screening Test Of Visual Acuity, Quantitative, Bilateral [id number] 09/05/2007 BREEZY WALDROP [facility] Social History Combined list of available smoking, tobacco, and other social history from Department of Defense and Veterans Affairs facilities. Social History Type Response Date Comment [facility] danelle This section is an empty social history section. DoD
--- OUTSIDE RECORDS SUMMARY | 2025-05-07 07:09 | XMS_ITS | Data Portability ---
Author Organization [place] - [facility] Address [address] [place] [address] Care Team Providers Care Client Care Manager Name Role Phone ISSA BUI Primary Care Provider KENDELL DIAZ Referring Provider IVELISSE CERVANTES Referring Provider [phone] ISSA BUI Primary Care Provider Assessment No assessment recorded. Plan of Treatment Reminders Order Date Submit Date Provider Last Modified By Organization Details Last Modified Time Details Appointments None recorded. Lab C-reactive protein, quantitati ve, serum or plasma 2023 024 [facility] (Registration ), [place], [address], 4 08:22:37 CBC w/ auto diff 2023 024 [facility] (Registration ), [place], [address], 4 15:32:00 tissue transgluta minase iga Ab, serum 2023 024 3 [facility] (Registration ), [place], [address], 4 11:11:41 iga Ab, qualitativ e, serum [address] (Registration ), [address], [place], [address], 4 10:35:16 TSH + free T4, serum 2023 024 [email or web address] 3 [facility] (Registration ), [address], [place], [address], 4 11:12:10 C-reactive protein, quantitati ve, serum or plasma 2022 023 [facility] (Registration ), [address], [place], [address], 3 17:12:50 CBC w/ auto diff 2022 023 [facility] (Registration ), [address], [place], [address], 3 16:28:45 Referral None recorded. Procedures colonoscop [...] if patient on Coumadin Hold [address] (Outpatient Surgery), [address], [place], [address], 4 10:12:37 colonoscop y procedure (PROC) - [...] patient on Coumadin Hold 2022 023 [email or web address] [place] (Outpatient Surgery), [address] [place] [address] , [place], [address], 3 10:40:54 Surgeries None recorded. Imaging None recorded. Medication Orders Humira Pen 40 mg/0.8 mL subcutaneo us kit 2024 025 ARNEL [facility], [address], [address], [place], [address], 5 13:35:41 Suprep Bowel Prep Kit 17.5 gram-3.13 gram-1.6 gram oral solution 2023 024 ARNEL [facility], [address] [place] [address] , [place], [place], [id number], 4 15:39:42 Humira Pen 40 mg/0.8 mL subcutaneo us kit 2022 023 ARNEL [facility], [address], [address], [place], [address], 3 15:46:56 Suprep Bowel Prep Kit 17.5 gram-3.13 gram-1.6 gram oral solution 2022 023 ama [facility], [address] [place] [address] , [place], [id number], 4 11:23:45 Patient TargetsNo targets recorded. Patient Instructions Encounter Date Encounter Id Patient Instructions Last Modified By Organization Details Last Modified Time 02/16/2023 [id number] The indications, technique, alternatives, and potential risks [...] Provi cristhian: Agustín joyce MD Not Available [address] , [place], [address], 02/16/2023 16:28:45 02/17/20 23 02/16/2023 CBC W/AUT O DIFFE RENTI AL white blood cell 4.7 10e3/ uL 4.5-13 .0 normal Not Available [address], [place], [address], 02/16/2023 16:28:45 02/17/20 23 02/16/2023 CBC W/AUT O DIFFE RENTI AL red blood cell 3.98 10e6/ uL 3.80-5 .10 normal Not Available [address], [place], [address], 02/16/2023 16:28:45 02/17/20 23 02/16/2023 CBC W/AUT O DIFFE RENTI AL hemoglobin 12.4 g/dL 11.5-1 5.3 normal Not Available [place] [address], [place], [address], 02/16/2023 16:28:45 02/17/20 23 02/16/2023 CBC W/AUT O DIFFE RENTI AL hematocrit 36.2 % 34.0-4 6.0 normal Not Available [place] [address], [place], [address], 02/16/2023 16:28:45 02/17/20 23 02/16/2023 CBC W/AUT O DIFFE RENTI AL mean cell volume 91 fL 78.0-9 8.0 normal Not Available [address], [place], [address], 02/16/2023 16:28:45 02/17/20 23 02/16/2023 CBC W/AUT O DIFFE RENTI AL mean cell HGB 31.2 pg 25.0-3 5.0 normal Not Available [address], [place], [address], 02/16/2023 16:28:45 02/17/20 23 02/16/2023 CBC W/AUT O DIFFE RENTI AL mean cell HGB concentratio n 34.3 g/dL 31.0-3 6.0 normal Not Available [address], [place], [address], 02/16/2023 16:28:45 02/17/20 23 02/16/2023 CBC W/AUT O DIFFE RENTI AL red cell distribution width 11.2 % 11.0-1 5.0 normal Not Available [address], [place], [address], 02/16/2023 16:28:45 02/17/20 23 02/16/2023 CBC W/AUT O DIFFE RENTI AL platelet count 319 10e3/ uL 150-40 0 normal Not Available [address] [place], [place], [address], 02/16/2023 16:28:45 02/17/20 23 02/16/2023 CBC W/AUT O DIFFE RENTI AL immature granulocyte % 0 0-1 normal Not Available [address] [place], [place], [address], 02/16/2023 16:28:45 02/17/20 23 02/16/2023 CBC W/AUT O DIFFE RENTI AL neutrophil % 54 % 35-75 normal Not Available [address], [place], [address], 02/16/2023 16:28:45 02/17/20 23 02/16/2023 CBC W/AUT O DIFFE RENTI AL lymphocyte % 36 % 10-50 normal Not Available [address], [place], [address], 02/16/2023 16:28:45 02/17/20 23 02/16/2023 CBC W/AUT O DIFFE RENTI AL monocyte % 7 % 0-15 normal Not Available [address], [place], [address], 02/16/2023 16:28:45 02/17/20 23 02/16/2023 CBC W/AUT O DIFFE RENTI AL eosinophil % 2 % 0-5 normal Not Available [address], [place], [address], 02/16/2023 16:28:45 02/17/20 23 02/16/2023 CBC W/AUT O DIFFE RENTI AL basophil % 1 % 0-5 normal Not Available [address] [place], [place], [address], 02/16/2023 16:28:45 02/17/20 23 02/16/2023 CBC W/AUT O DIFFE RENTI AL immature granulocyte # 0.01 x1000 /uL 0-0.05 normal Not Available [place] [address], [place], [address], 02/16/2023 16:28:45 02/17/20 23 02/16/2023 CBC W/AUT O DIFFE RENTI AL neutrophil # 2.51 x1000 /uL 1.50-8 .00 normal Not Available [address] [place], [place], [address], 02/16/2023 16:28:45 02/17/20 23 02/16/2023 CBC W/AUT O DIFFE RENTI AL lymphocyte # 1.68 x1000 /uL 1.20-5 .20 normal Not Available [address] [place], [place], [address], 02/16/2023 16:28:45 02/17/20 23 02/16/2023 CBC W/AUT O DIFFE RENTI AL monocyte # 0.33 x1000 /uL 0.40-0 .90 low Not Available [address] [place], [place], [address], 02/16/2023 16:28:45 02/17/20 23 02/16/2023 CBC W/AUT O DIFFE RENTI AL eosinophil # 0.10 x1000 /uL 0.00-0 .50 normal Not Available [address], [place], [address], 02/16/2023 16:28:45 02/17/20 23 02/16/2023 CBC W/AUT O DIFFE RENTI AL basophil # 0.05 x1000 /uL 0.00-0 .30 normal Not Available [address] [place], [place], [address], 02/16/2023 16:28:45 02/17/20 23 02/16/2023 CBC W/AUT O DIFFE RENTI AL NRBC automated 0.0 /100_ WBC Not Available [address], [place], [address], 02/16/2023 16:28:45 02/17/20 23 02/16/2023 CBC W/AUT O DIFFE RENTI AL performing lab SEE NOTE ML - [facility] R [address] [place] [address] DRIVE [facility] [address] Not Available [address] [place], [place], [address], 02/16/2023 16:28:45 02/17/20 23 02/16/2023 C-KRAIG CTIVE PROTE IN note SEE NOTE Order ing Provi cristhian: Agustín joyce MD Not Available [address] , [place], [address], 02/16/2023 17:12:50 02/17/20 23 02/16/2023 C-KRAIG CTIVE PROTE IN C-reactive protein <2.0 mg/L 0.0-9. 0 normal Not Available [address] , [place], [address], 02/16/2023 17:12:50 02/17/20 23 02/16/2023 C-KRAIG CTIVE PROTE IN performing lab SEE NOTE ML [facility] [address] [facility] [address] Not Available [address] , [place], [address], 02/16/2023 17:12:50 03/02/20 23 03/02/2023 UR HCG QUAL note See Note Order ing Provi cristhian: Agustín joyce MD Not Available [address] , [place], [address], 03/02/2023 07:20:11 03/02/20 23 03/02/2023 UR HCG QUAL ur HCG qual NEGATI VE negati ve Not Available [address] , [place], [address], 03/02/2023 07:20:11 03/02/20 23 03/02/2023 UR HCG QUAL performing lab see note ML - [facility] R [address] [facility] [address] Not Available [address] , [place], [address], 03/02/2023 07:20:11 12/14/19 24 12/14/2023 CBC W/AUT O DIFFE RENTI AL note SEE NOTE Order ing Provi cristhian: Agustín joyce MD Not Available [address] , [place], [address], 12/14/2023 15:32:00 12/14/19 24 12/14/2023 CBC W/AUT O DIFFE RENTI AL white blood cell 6.5 10e3/ uL 4.5-13 .0 normal Not Available [address] , [place], [address], 12/14/2023 15:32:00 12/14/19 24 12/14/2023 CBC W/AUT O DIFFE RENTI AL red blood cell 4.24 10e6/ uL 3.80-5 .10 normal Not Available [address], [place], [address], 12/14/2023 15:32:00 12/14/19 24 12/14/2023 CBC W/AUT O DIFFE RENTI AL hemoglobin 13.3 g/dL 11.5-1 5.3 normal Not Available [place] [address], [place], [address], 12/14/2023 15:32:00 12/14/19 24 12/14/2023 CBC W/AUT O DIFFE RENTI AL hematocrit 38.4 % 34.0-4 6.0 normal Not Available [address], [place], [address], 12/14/2023 15:32:00 12/14/19 24 12/14/2023 CBC W/AUT O DIFFE RENTI AL mean cell volume 91 fL 78.0-9 8.0 normal Not Available [address] [place], [place], [address], 12/14/2023 15:32:00 12/14/19 24 12/14/2023 CBC W/AUT O DIFFE RENTI AL mean cell HGB 31.4 pg 25.0-3 5.0 normal Not Available [address] [place], [place], [address], 12/14/2023 15:32:00 12/14/19 24 12/14/2023 CBC W/AUT O DIFFE RENTI AL mean cell HGB concentratio n 34.6 g/dL 31.0-3 6.0 normal Not Available [address] , [place], [address], 12/14/2023 15:32:00 12/14/19 24 12/14/2023 CBC W/AUT O DIFFE RENTI AL red cell distribution width 11.0 % 11.0-1 5.0 normal Not Available [address] , [place], [address], 12/14/2023 15:32:00 12/14/19 24 12/14/2023 CBC W/AUT O DIFFE RENTI AL platelet count 324 10e3/ uL 150-40 0 normal Not Available [address] [place], [place], [address], 12/14/2023 15:32:00 12/14/19 24 12/14/2023 CBC W/AUT O DIFFE RENTI AL immature granulocyte % 0 0-1 normal Not Available [address], [place], [address], 12/14/2023 15:32:00 12/14/19 24 12/14/2023 CBC W/AUT O DIFFE RENTI AL neutrophil % 55 % 35-75 normal Not Available [address] [place], [address], 12/14/2023 15:32:00 12/14/19 24 12/14/2023 CBC W/AUT O DIFFE RENTI AL lymphocyte % 36 % 10-50 normal Not Available [address] , [place], [address], 12/14/2023 15:32:00 12/14/19 24 12/14/2023 CBC W/AUT O DIFFE RENTI AL monocyte % 6 % 0-15 normal Not Available [address] , [place], [address], 12/14/2023 15:32:00 12/14/19 24 12/14/2023 CBC W/AUT O DIFFE RENTI AL eosinophil % 2 % 0-5 normal Not Available [address] , [place], [address], 12/14/2023 15:32:00 12/14/19 24 12/14/2023 CBC W/AUT O DIFFE RENTI AL basophil % 1 % 0-5 normal Not Available [address] , [place], [address], 12/14/2023 15:32:00 12/14/19 24 12/14/2023 CBC W/AUT O DIFFE RENTI AL immature granulocyte # 0.01 x1000 /uL 0-0.05 normal Not Available [address] , [place], [address], 12/14/2023 15:32:00 12/14/19 24 12/14/2023 CBC W/AUT O DIFFE RENTI AL neutrophil # 3.59 x1000 /uL 1.50-8 .00 normal Not Available [address] [place], [place], [address], 12/14/2023 15:32:00 12/14/19 24 12/14/2023 CBC W/AUT O DIFFE RENTI AL lymphocyte # 2.33 x1000 /uL 1.20-5 .20 normal Not Available [address] , [place], [address], 12/14/2023 15:32:00 12/14/19 24 12/14/2023 CBC W/AUT O DIFFE RENTI AL monocyte # 0.39 x1000 /uL 0.40-0 .90 low Not Available [address] , [place], [address], 12/14/2023 15:32:00 12/14/19 24 12/14/2023 CBC W/AUT O DIFFE RENTI AL eosinophil # 0.12 x1000 /uL 0.00-0 .50 normal Not Available [address] , [place], [address], 12/14/2023 15:32:00 12/14/19 24 12/14/2023 CBC W/AUT O DIFFE RENTI AL basophil # 0.05 x1000 /uL 0.00-0 .30 normal Not Available [address] , [place], [address], 12/14/2023 15:32:00 12/14/19 24 12/14/2023 CBC W/AUT O DIFFE RENTI AL NRBC automated 0.0 /100_ WBC Not Available [address] , [place], [address], 12/14/2023 15:32:00 12/14/19 24 12/14/2023 CBC W/AUT O DIFFE RENTI AL performing lab SEE NOTE - [facility] R [address] [place] [address] DRIVE [facility] [address] Not Available [address] , [place], [address], 12/14/2023 15:32:00 12/14/19 24 12/14/2023 T4 FREE note See Note Order ing Provi cristhian: Agustín joyce MD Not Available [address] , [place], [address], 12/15/2023 08:22:36 12/14/19 24 12/14/2023 T4 FREE T4 free 0.92 NG/dL 0.76-1 .46 normal This test may be affec abdulaziz by high level s of bioti n, found in some presc ripti on and over- the-c ounte r suppl ement s. [place], patie nts shoul d disco ntinu e bioti n 3 days befor e testi ng. Resul ts obtai kindra after recen t bioti n inges tion shoul d be inter prete d with cauti on. Not Available [address] , [place], [address], 12/15/2023 08:22:36 12/14/19 24 12/14/2023 T4 FREE performing lab see note - [facility] [address] [facility] [address] Not Available [address] , [place], [address], 12/15/2023 08:22:36 12/14/19 24 12/14/2023 THYRO ID STIMU LATIN G HORMO NE note See Note Order ing Provi cristhian: Agustín joyce MD Not Available [address] , [place], [address], 12/15/2023 08:22:36 12/14/19 24 12/14/2023 THYRO ID STIMU LATIN G HORMO NE thyroid stimulating hormone 1.95 uIU/m L 0.36-3 .74 normal This test may be affec abdulaziz by high level s of bioti n, found in some presc ripti on and over- the-c ounte r suppl ement s. [place], patie nts shoul d disco ntinu e bioti n 3 days befor e testi ng. Resul ts obtai kindra after recen t bioti n inges tion aramis d be inter prete d with cauti on. Not Available [address] , [place], [address], 12/15/2023 08:22:36 12/14/19 24 12/14/2023 THYRO ID STIMU LATIN G HORMO NE performing lab see note - [facility] R [address] [facility] [address] Not Available [address] , [place], [address], 12/15/2023 08:22:36 12/14/19 24 12/14/2023 C-KRAIG CTIVE PROTE IN note SEE NOTE Order ing Provi cristhian: Agustín joyce MD Not Available [address] , [place], [address], 12/15/2023 08:22:37 12/14/19 24 12/14/2023 C-KRAIG CTIVE PROTE IN C-reactive protein 5.1 mg/L <5.0 NOT E NEW REFER ENCE RANGE S Not Available [address] , [place], [address], 12/15/2023 08:22:37 12/14/19 24 12/14/2023 C-KRAIG CTIVE PROTE IN performing lab SEE NOTE - [facility] R [address] [facility] [address] Not Available [address] , [place], [address], 12/15/2023 08:22:37 12/14/19 24 12/14/2023 IMMUN KAILYN Sharpe note See Note Order ing Provi cristhian: Agustín joyce MD Not Available [address] , [place], [address], 12/15/2023 08:22:37 12/14/19 24 12/14/2023 IMMUN OGLOB ULIN A immunoglobul in A 330 mg/dL 87-352 Perfo rmed At: CB, [facility] [address] [facility], [place], [place], [id number] [address] Eliel almonte, PhD, Phone : [phone] Not Available [address] , [place], [address], 12/15/2023 08:22:37 12/14/19 24 12/14/2023 IMMUN OGLOB ULIN A performing lab see note LC2 - [facility] MARIBELLIEN T# [id number] [id number] [address] [place] [address] Not Available [address] [place], [address], 12/15/2023 08:22:37 12/14/19 24 12/14/2023 AB TISSU E TRANS GLUTA MEME E IGA note See Note Order ing Provi cristhian: Agustín joyce MD Not Available [address] [place], [address], 12/15/2023 16:13:48 12/14/19 24 12/14/2023 AB TISSU [...] rmed At: CB, [facility] [address] [facility], [place], [address] [address] Eliel almonte, PhD, Phone : [phone] Not Available [address] [place], [address], 12/15/2023 16:13:48 12/14/19 24 12/14/2023 AB TISSU E TRANS GLUTA MEME E IGA performing lab see note LC2 - [facility] CLIEN T# [id number] [id number] [address] [place] [address] Not Available [address] , [place], [address], 12/15/2023 16:13:48 01/04/20 24 01/04/2024 UR HCG QUAL note See Note Order ing Provi cristhian: Agustín joyce MD Not Available [address] , [place], [address], 01/04/2024 09:10:44 01/04/20 24 01/04/2024 UR HCG QUAL ur HCG qual NEGATI VE negati ve Not Available [address] , [place], [address], 01/04/2024 09:10:44 01/04/20 24 01/04/2024 UR HCG QUAL performing lab see note ML - [facility] [address] [facility] [address] Not Available [address] , [place], [address], 01/04/2024 09:10:44 Result Notes None recorded. Problems Name Problem SNOMED Code Status Onset Date Resolution Date Notes Provider Name and Address Organization Details Recorded Time Crohn's disease of large bowel 0218321 Active 2022 Not Available [facility] 3 01:55:48 Rectal hemorrhage 44534924 Active 2023 Ramana Ricci MD [address] [facility], [place], [address] , [facility] - [facility] 4 14:51:18 Constipation 56833461 Active 2023 Ramana Ricci MD [address] [place] [address],[place] [address], [place], [address] , MARQUISE - [facility] - [place] [facility] [place] 4 15:03:42 Problem Notes None recorded. Procedures Surgical History Date Name Laterality Status Provider Name and Address Organization Details Recorded Time 3 completed Bob CAMARILLO - [facility] - [place] [facility] [place] 09/16/2023 13:45:41 3 Date of Last Pap Smear completed Bob CAMARILLO - [facility] - [place] [facility] [place] 09/16/2023 13:45:41 1 Colonoscopy completed Alicja CAMARILLO - [facility] - [place] [facility] [place] 02/16/2023 14:51:37 1 Date of Last Colonoscopy completed [facility] [place] 09/16/2023 13:45:41 4 section completed Alicja CAMARILLO [facility] [place] 02/16/2023 14:51:50 4 Other completed Bob [facility]ARILL[facility] [place] 09/16/2023 13:45:42 9 Knee Surgery completed Alicja Mackey [facility] - [place] & [place] 02/16/2023 14:52:28 9 Other completed [facility]ARILLO [facility] [place] 09/16/2023 13:45:42 Imaging Results None recorded. Procedure Notes None recorded. Medical Equipment None Reported. Allergies Allergen ID Allergen Name Allergen Category Reaction Reaction Severity Criticality Documentation Date Start Date Code Code System Note Provider Name and Address Organization Details Recorded Time 145187 inflixima b medicatio n Not available Not available Not available 09/16/20232022 03924 1 RxNorm Bob Edwards luma MARQUISE - [facility] - [place] [facility] [place] 4 13:46:14 Medications Name Sig Start Date [...] Updated DateTime 5 154.94 cm 30.2 kg/m2 47725.7 8 g 97.7 [degF] 99 % 99 % 97 /min 115/80 mm[Hg] Stacia Dc [place] - [facility] & [place] 5 13:09:52 Date Recorded Body height Body mass index (BMI) Body weight Body temperature Heart rate Respiratory rate Systolic And Diastolic Provider Name and Address Organization Details Last Updated DateTime 4 154.94 cm 30 kg/m2 36824.4 7 g 97.6 [degF] 94 /min 18 /min 138/90 mm[Hg] [facility] [place] 4 14:21:29 Date Recorded Body height Body mass index (BMI) Body weight Body temperature Heart rate Respiratory rate Systolic And Diastolic Provider Name and Address Organization Details Last Updated DateTime 3 154.94 cm 28.3 kg/m2 49692.4 2 g 98.5 [degF] 71 /min 18 /min 113/76 mm[Hg] Alicja [facility] [place] [facility] [place] 3 14:45:47 Social History Question Answer Notes LastModified by Organizat [employer] Details LastModified Time Tobacco Smoking Status Never Smoker Alicja ge, [facility]ISE Mackey [facility] [place] & [place] 02/16/2023 14:51:06 Do You Have An Advance Directive? No Information not available 09/16/2023 Are You Blind Or Do You Have Difficulty Seeing? Yes Information not available 09/16/2023 What Is Your Level Of Caffeine Consumption? Occasional [email or web address] Information not available 02/16/2023 What Type Of Diet Are You Following? REGULAR [email or web address] Information not available 02/16/2023 What Was The Date Of Your Most Recent Tobacco Screening? 02/15/2023 Information not available 09/16/2023 Sex: Female Functional Status Question Answer Note LastModified by Organizat ion Details LastModified Time Do you use any illicit or recreational drugs? No [email or web address] Information not available 02/16/2023 What is your level of alcohol consumption? 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 Moderate Information not available 09/16/2023 Mental Status Question Answer Note LastModified by Organization D etails LastModified Time Do you feel stressed (tense, restless, nervous, or anxious, or unable to sleep at night)? [id number] Information not available 09/16/2023 Family History Relationship [...] Cancer N Kidney Stones N Hyperthyroidism N Depression N COPD N Hypothyroidism N Osteoporosis/Osteopenia N Diverticulitis/Diverticulosis N Colon Polyps N Anxiety Disorder N Diabetes N Autoimmune disease Y Bleeding Disorder N Arthritis N Seizures/Epilepsy N Tuberculosis N Hyperlipidemia N Cancer N Stroke N Asthma N Sleep Apnea N GERD/Reflux N Hepatitis N Cirrhosis N Liver Disease N Heart Disease N Hypertension N Kidney Disease N Gynecological History Statement/Question Response Abnormal Pap [...] mcg/0.3 mL dose 05/14/2022 completed Not Available [facility] 3 01:55:48 COVID-19, mRNA, LNP-S, bivalent, PF, 30 mcg/0.3 mL dose 12/24/2021 completed Not Available [facility] 3 01:55:48 COVID-19, mRNA, LNP-S, PF, 10 mcg/0.2 mL dose, lizzy-sucrose 04/14/2021 completed Not Available [facility] 023 01:55:48 COVID-19, mRNA, LNP-S, PF, 10 mcg/0.2 mL dose, lizzy-sucrose 07/17/2020 completed Not Available [facility] 023 01:55:48 COVID-19, mRNA, LNP-S, PF, 10 mcg/0.2 mL dose, lizzy-sucrose 06/26/2020 completed Not Available [facility] 023 01:55:48 Past Encounters Encounter ID Performer Location Encounter Start Date Encounter Closed Date Diagnosis/Indication Diagnosis SNOMED-CT Code Diagnosis ICD10 Code Diagnosis IMO Codes Diagnosis Note [id number] Ramana Ricci MD [facility] [address] [place] [address],[address] [phone] 02/16/2023 14:27:54 02/16/2023 15:51:21 Crohn's disease of large bowel 8759484 K50.10 Excellent control on current therapy, check CRP and CBC for safety purposes, schedule colonoscop y for dysplasia surveillan ce continue Humira unchanged. [id number] Ramana Ricci MD [facility] [address] [place] [address],[address] [phone] 12/14/2023 14:08:45 12/14/2023 15:00:23 Crohn's disease of large bowel 9097820 K50.10 The patient's recent episode of rectal bleeding may have been totally unrelated to her background Crohn's disease but do feel CRP CBC is recommende d, as well as reassessme nt endoscopic ally. Rectal hemorrhage 384619 02 K62.5 Constipation 66864105 K5 9.00 unusual onset after a in apparent reaction to Tamiflu, at this time continue MiraLax on a daily basis, hold senna. May use milk of magnesia if needed for relief of severe constipati on. [id number] Ramana Ricci MD [facility] [address] [place] [address],[address] [address] 07/10/2024 12:53:38 07/10/2024 13:35:28 Crohn's disease of large bowel 8274956 K50.10 The patient has Crohn's disease that time is quiescent, no change in therapy indicated continue Humira without change. Routine follow-up 6 months or PRN. The patient is scheduled for rheumatolo gic evaluation later this month, if there are areas of concern she will let us know. Outside labs including a comprehens [place] metabolic panel, CBC and TSH reviewed and normal. Constipation [id number] K5 9.00 Continue MiraLax on a daily [...] Diaz Member ID Guarantor Name 07/10/2024 1 [facility] Michelle Woodall [id number] Michelle Woodall 07/10/2024 1 [employer] [employer] [id number] W Michelle Woodall [id number] Michelle Woodall Notes Date Note Type Note [...] no fevers or chills. Ramana Ricci MD [address] [place] [address],[address], [place], [address], [facility] & [place] 02/16/2023 15:50:40 12/14/2023 text/html this 43-year-old female [...] and today without difficulty. Ramana Ricci MD [address] [place] [address],[address], [place], [address], [facility] & [place] 12/14/2023 15:06:08 07/10/2024 text/html ROS as noted [...] was a child. Ramana Ricci MD [address] [facility],[address], [place], [address], [facility] [place] [facility] [place] & [place] 07/10/2024 13:38:04 OBGyn Episode No OBEpisode recorded.
--- OUTSIDE RECORDS SUMMARY | 2025-05-07 07:09 | XMS_ITS | Data Portability ---
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 Despite well-controlled Crohn's symptoms with long-term Humira therapy, arthritis signs persist, suggestive of developing resistance or inadequate current treatment. 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 Despite well-controlled Crohn's symptoms with long-term Humira therapy, arthritis signs persist, suggestive of developing resistance or inadequate current treatment. [email or web address] Not available 02/19/2025 08:36:36 Plan of Treatment Reminders Order Date Submit Date Provider Last Modified By Organization Details Last Modified Time Details Appointments RHEUM RECHECK 2024 08:00A M DAMON HERRERA MD Not available Not available Not available Lab CBC w/ auto diff 2024 025 [facility] (Lab), [address] [place] [address] [address], [place], [address], 03/12/2025 18:35:10 CMP, serum or plasma 2024 025 [facility] (Lab), [address], [place], [address], 03/12/2025 22:57:12 ESR (erythro cyte sediment ation rate), blood 2024 025 [facility] (Lab), [address], [place], [address], 03/12/2025 18:35:10 C reactive protein, QN, serum or plasma 2024 025 [facility] (Lab), [address], [place], [address], 02/19/2025 09:17:47 CBC w/ auto diff 2024 025 [facility] (Lab), [address], [place], [address], 04/06/2025 15:07:21 ESR (erythro cyte sediment ation rate), blood 2024 025 [facility] (Lab), [address], [place], [address], 03/12/2025 18:35:10 CMP, serum or plasma 2024 025 [facility] (Lab), [address], [place], [address], 04/06/2025 15:07:21 CMP, serum or plasma 2024 025 [facility] (Lab), [address], [place], [address], 04/06/2025 15:07:21 CBC w/ auto diff 2024 025 [facility] (Lab), [address] [place] [address] [address], [place], [address], 04/06/2025 15:07:21 CBC w/ auto diff [address] [facility], [address] [place] [address], [address], 12/22/2024 08:42:39 CMP, serum or plasma [address] [facility], [address] [place] [address], [address], 12/22/2024 08:42:39 ESR (erythro cyte sediment ation rate), blood [address] [facility], [address] [place] [address], [address], 12/22/2024 08:42:39 C reactive protein, QN, serum or plasma [address] [facility], [address] [place] [address], [address], 12/22/2024 08:42:39 Referral None recorded . Procedures None recorded . Surgeries None recorded . Imaging None recorded . Medication Orders methotre xate sodium 2.5 mg tablet 2024 025 [facility], [address], [address], 02/19/2025 09:16:37 folic acid 1 mg tablet 2024 025 [facility], [address], [address], 02/19/2025 09:16:38 Skyrizi 60 mg/mL intraven ous solution 2024 025 [email or web address], [address], [place], [address], 11/17/2024 09:32:44 Skyrizi 60 mg/mL intraven ous solution 2024 025 [email or web address], [address], [address], [place], [address], 11/17/2024 09:32:44 Skyrizi 60 mg/mL intraven ous solution 2024 025 [email or web address], [address], [address], [place], [address], 11/17/2024 09:32:44 Patient TargetsNo targets recorded. Patient Instructions Encounter Date Encounter Id Patient Instructions Last Modified By Organization Details Last Modified Time 02/19/2025 [id number] I spent >40 minutes caring for the patient today with direct counseling, coordinating care, extensive review of outside records, medication management, and documentation. [email or web address] Not available 02/19/2025 14:03:26 Reason for Referral None Reported. Results Created Date Observation Date Name Description Value Unit Range Abnormal Flag Note LastModifiedBy Organization Detail LastModifiedTime 08/17/19 25 08/17/2024 COMPL ETE BLOOD COUNT white blood cells 6.8 10*3/ uL 3.8-10 .8 normal Not Available [facility] [address] [place] [address], [address], 08/17/2024 14:05:24 08/17/19 25 08/17/2024 COMPL ETE BLOOD COUNT red blood cells 4.39 10*6/ uL 3.80-5 .20 normal Not Available [facility] [address] [place], [address], 08/17/2024 14:05:24 08/17/19 25 08/17/2024 COMPL ETE BLOOD COUNT hemoglobin 14.0 g/dL 12.0-1 6.0 normal Not Available [facility] [address] [place], [address], 08/17/2024 14:05:24 08/17/19 25 08/17/2024 COMPL ETE BLOOD COUNT hematocrit 40.3 % 35.0-4 7.0 normal Not Available [facility] [address] [place] [address], [address], 08/17/2024 14:05:24 08/17/19 25 08/17/2024 COMPL ETE BLOOD COUNT MCV 92 fL 80-100 normal Not Available [facility] [address] [place] [address], [address], 08/17/2024 14:05:24 08/17/19 25 08/17/2024 COMPL ETE BLOOD COUNT MCH 32 pg 26-35 normal Not Available [facility] [address] [place] [address], [address], 08/17/2024 14:05:24 08/17/19 25 08/17/2024 COMPL ETE BLOOD COUNT MCHC 35 g/dL 32-36 normal Not Available [facility] [address] [place] [address], [address], 08/17/2024 14:05:24 08/17/19 25 08/17/2024 COMPL ETE BLOOD COUNT RDW 12.2 % 11.0-1 5.0 normal Not Available [facility] [address] [place] [address], [address], 08/17/2024 14:05:24 08/17/19 25 08/17/2024 COMPL ETE BLOOD COUNT MPV 7.2 fL 6.2-10 .5 normal Not Available [facility] [address] [place] [address], [address], 08/17/2024 14:05:24 08/17/19 25 08/17/2024 COMPL ETE BLOOD COUNT platelet count 374 10*3/ uL 150-40 0 normal Not Available [facility] [address] [place] [address], [address], 08/17/2024 14:05:24 08/17/19 25 08/17/2024 COMPL ETE BLOOD COUNT neutrophil,a bsolute 4.2 10*3/ uL 1.6-8. 4 normal Not Available [facility] [address] [place] [address], [address], 08/17/2024 14:05:24 08/17/19 25 08/17/2024 COMPL ETE BLOOD COUNT lymphocyte,a bsolute 2.1 10*3/ uL 0.4-5. 1 normal Not Available [facility] [address] [place] [address], [address], 08/17/2024 14:05:24 08/17/19 25 08/17/2024 COMPL ETE BLOOD COUNT monocyte,abs olute 0.4 10*3/ uL 0.0-1. 2 normal Not Available [facility] [address] [place] [address], [address], 08/17/2024 14:05:24 08/17/19 25 08/17/2024 COMPL ETE BLOOD COUNT eosinophil,a bsolute 0.1 10*3/ uL 0.0-0. 8 normal Not Available [facility] [address] [place] [address], [address], 08/17/2024 14:05:24 08/17/19 25 08/17/2024 COMPL ETE BLOOD COUNT basophil,abs olute 0.1 10*3/ uL 0.0-0. 3 normal Not Available [facility] [address] [place] [address], [address], 08/17/2024 14:05:24 08/17/19 25 08/17/2024 COMPL ETE BLOOD COUNT % neutrophils 61.1 % 42.0-7 8.0 normal Not Available [facility] [address] [place] [address], [address], 08/17/2024 14:05:24 08/17/19 25 08/17/2024 COMPL ETE BLOOD COUNT % lymphocytes 30.0 % 11.0-4 7.0 normal Not Available [facility] [address] [place] [address], [address], 08/17/2024 14:05:24 08/17/19 25 08/17/2024 COMPL ETE BLOOD COUNT % monocytes 6.4 % 0.0-11 .0 normal Not Available [facility] [address] [place] [address], [address], 08/17/2024 14:05:24 08/17/19 25 08/17/2024 COMPL ETE BLOOD COUNT % eosinophils 1.7 % 0.0-7. 0 normal Not Available [facility] [address] [place] [address], [address], 08/17/2024 14:05:24 08/17/19 25 08/17/2024 COMPL ETE BLOOD COUNT % basophils 0.8 % 0.0-3. 0 normal Not Available [facility] [address] [place] [address], [address], 08/17/2024 14:05:24 08/17/19 25 08/17/2024 COMPL ETE BLOOD COUNT nucleated red cells 0.0 % 0.0-0. 9 normal Not Available [facility] [address] [place] [address], [address], 08/17/2024 14:05:24 08/17/19 25 08/17/2024 COMPL ETE BLOOD COUNT nucleated RBCs, absolute 0.00 10*3/ uL not estab. normal Not Available [facility] [address] [place] [address], [address], 08/17/2024 14:05:24 08/17/19 25 08/17/2024 ESR, AUTOM ATED ESR, automated 27 mm 0-19 high Not Available [facility] [address] [place] [address], [address], 08/17/2024 14:09:47 02/20/20 25 08/17/2024 COMP. METAB OLIC PANEL glucose 82 mg/dL 74-100 normal Not Available [facility] [address] [place] [address], [address], 08/17/2024 15:01:23 08/17/19 25 08/17/2024 COMP. METAB OLIC PANEL blood urea nitrogen 9 mg/dL 6-20 normal Not Available [facility] [address] [place] [address], [address], 08/17/2024 15:01:23 08/17/19 25 08/17/2024 COMP. METAB OLIC PANEL creatinine 0.77 mg/dL 0.50-0 .95 normal Not Available [facility] [address] [place] [address], [address], 08/17/2024 15:01:23 08/17/19 25 08/17/2024 COMP. METAB OLIC PANEL BUN/creatini ne ratio 12 (calc ) 10-20 normal Not Available [facility] [address] [place] [address], [address], 08/17/2024 15:01:23 08/17/19 25 08/17/2024 COMP. METAB OLIC PANEL sodium 140 mmol/ L 136-14 5 normal Not Available [facility] [address] [place] [address], [address], 08/17/2024 15:01:23 08/17/19 25 08/17/2024 COMP. METAB OLIC PANEL potassium 4.0 mmol/ L 3.4-5. 0 normal Not Available [facility] [address] [place] [address], [address], 08/17/2024 15:01:23 08/17/19 25 08/17/2024 COMP. METAB OLIC PANEL chloride 102 mmol/ L 98-107 normal Not Available [facility] [address] [place] [address], [address], 08/17/2024 15:01:23 08/17/19 25 08/17/2024 COMP. METAB OLIC PANEL carbon dioxide 24 mmol/ L 22-31 normal Not Available [facility] [address] [place] [address], [address], 08/17/2024 15:01:23 08/17/19 25 08/17/2024 COMP. METAB OLIC PANEL anion gap 14 (calc ) 7-25 normal Not Available [facility] [address] [place] [address], [address], 08/17/2024 15:01:23 08/17/19 25 08/17/2024 COMP. METAB OLIC PANEL calcium 9.2 mg/dL 8.6-10 .2 normal Not Available [facility] [address] [place] [address], [address], 08/17/2024 15:01:23 08/17/19 25 08/17/2024 COMP. METAB OLIC PANEL total protein 7.7 g/dL 6.4-8. 3 normal Not Available [facility] [address] [place] [address], [address], 08/17/2024 15:01:23 08/17/19 25 08/17/2024 COMP. METAB OLIC PANEL albumin 4.2 g/dL 3.5-5. 2 normal Not Available [facility] [address] [place] [address], [address], 08/17/2024 15:01:23 08/17/19 25 08/17/2024 COMP. METAB OLIC PANEL globulin 3.5 1.5-4. 5 normal Not Available [facility] [address] [place] [address], [address], 08/17/2024 15:01:23 08/17/19 25 08/17/2024 COMP. METAB OLIC PANEL albumin/glob ulin ratio 1.2 (calc ) 1.1-2. 5 normal Not Available [facility] [address] [place] [address], [address], 08/17/2024 15:01:23 08/17/19 25 08/17/2024 COMP. METAB OLIC PANEL bilirubin, total 0.4 mg/dL 0.1-1. 2 normal Not Available [facility] [address] [place], [address], 08/17/2024 15:01:23 08/17/19 25 08/17/2024 COMP. METAB OLIC PANEL alkaline phosphatase 50 U/L 30-121 normal Not Available [facility] [address] [place], [address], 08/17/2024 15:01:23 08/17/19 25 08/17/2024 COMP. METAB OLIC PANEL AST 26 U/L 0-32 normal Not Available [facility] [address] [place] [address], [address], 08/17/2024 15:01:23 08/17/19 25 08/17/2024 COMP. METAB OLIC PANEL ALT 24 U/L 0-33 normal Not Available [facility] [address] [place], [address], 08/17/2024 15:01:23 08/17/19 25 08/17/2024 COMP. METAB OLIC PANEL GFR 96 >= 60 normal NOT E New calcu latio n for GFR (CKD- EPI 2020) is formu lated witho ut race adjus tment facto rs at the recom menda tion of the [employer] at[employer] and Ameri can Socie ty of Nephr ology . This calcu latio n has not been valid ated in pregn ant women . For pedia rosanne patie nts refer to https ://emerald ocasio.jamaal morel/pr aguila calzada s/TOMERO QI/gf r_cal culat orPed Not Available [facility] [address] [place], [address], 08/17/2024 15:01:23 08/17/19 25 08/17/2024 C REACT JUDE PROTE IN C reactive protein 0.53 mg/dL 0.00-0 .49 high Not Available [facility] [address] [place] [address], [address], 08/17/2024 15:01:26 08/17/19 25 08/17/2024 HEPAT ITIS PANEL hepatitis A Ab, IgM NONREA CTIVE nonrea ctive normal Not Available [facility] [address] [place] [address], [address], 08/17/2024 18:37:12 08/17/19 25 08/17/2024 HEPAT ITIS PANEL hepatitis B surface Ag NONREA CTIVE nonrea ctive normal Not Available [facility] [address] [place] [address], [address], 08/17/2024 18:37:12 08/17/19 25 08/17/2024 HEPAT ITIS PANEL hepatitis B core Ab,IgM NONREA CTIVE nonrea ctive normal Not Available [facility] [address] [place] [address], [address], 08/17/2024 18:37:12 08/17/19 25 08/17/2024 HEPAT ITIS PANEL hcab, reflex viral RNA qt NONREA CTIVE nonrea ctive normal Antib odies to HCV were not detec abdulaziz; does not exclu de the possi bilit y of expos ure to HCV. Not Available [facility] [address] [place] [address], [address], 08/17/2024 18:37:12 08/17/19 25 08/20/2024 QUANT IFERO N TB GOLD qtb gold NEGATI VE negati ve normal Negat jude test resul t. M. tuber culos is compl ex infec tion unlik atul. Not Available [facility] [address] [place] [address], [address], 08/20/2024 19:53:33 08/17/19 25 08/20/2024 QUANT IFERO N TB GOLD nil 0.05 IU/mL normal Not Available [facility] [address] [place] [address], [address], 08/20/2024 19:53:33 08/17/19 25 08/20/2024 QUANT IFERO N TB GOLD mitogen nil 7.31 IU/mL normal Not Available [facility] [address] [place], [address], 08/20/2024 19:53:33 08/17/19 25 08/20/2024 QUANT IFERO N TB GOLD TB1 nil 0.00 IU/mL normal Not Available [facility] [address] [place], [address], 08/20/2024 19:53:33 08/17/19 25 08/20/2024 QUANT IFERO [...] T-lym phocy elvin. For addit ional infor matio n, pleas e refer to https ://ed banati on.alison ortiz [employer]. com/f aq/FA Q204 (This link is being provi ded for infor jared gao/ shannan jane only. ) Not Available [facility] [address] [place] [address], [address], 08/20/2024 19:53:33 12/23/19 25 12/22/2024 COMPL ETE BLOOD COUNT white blood cells 7.1 10*3/ uL 3.8-10 .8 normal Not Available [facility] [address] [place] [address], [address], 12/22/2024 18:25:58 12/23/19 25 12/22/2024 COMPL ETE BLOOD COUNT red blood cells 4.19 10*6/ uL 3.80-5 .20 normal Not Available [facility] [address] [place] [address], [address], 12/22/2024 18:25:58 12/23/19 25 12/22/2024 COMPL ETE BLOOD COUNT hemoglobin 13.1 g/dL 12.0-1 6.0 normal Not Available [facility] [address] [place] [address], [address], 12/22/2024 18:25:58 12/23/19 25 12/22/2024 COMPL ETE BLOOD COUNT hematocrit 38.0 % 35.0-4 7.0 normal Not Available [facility] [address] [place] [address], [address], 12/22/2024 18:25:58 12/23/19 25 12/22/2024 COMPL ETE BLOOD COUNT MCV 91 fL 80-100 normal Not Available [facility] [address] [place] [address], [address], 12/22/2024 18:25:58 12/23/19 25 12/22/2024 COMPL ETE BLOOD COUNT MCH 31 pg 26-35 normal Not Available [facility] [address] [place] [address], [address], 12/22/2024 18:25:58 12/23/19 25 12/22/2024 COMPL ETE BLOOD COUNT MCHC 34 g/dL 32-36 normal Not Available [facility] [address] [place] [address], [address], 12/22/2024 18:25:58 12/23/19 25 12/22/2024 COMPL ETE BLOOD COUNT RDW 12.0 % 11.0-1 5.0 normal Not Available [facility] [address] [place] [address], [address], 12/22/2024 18:25:58 12/23/19 25 12/22/2024 COMPL ETE BLOOD COUNT MPV 7.6 fL 6.2-10 .5 normal Not Available [facility] [address] [place] [address], [address], 12/22/2024 18:25:58 12/23/19 25 12/22/2024 COMPL ETE BLOOD COUNT platelet count 361 10*3/ uL 150-40 0 normal Not Available [facility] [address] [place] [address], [address], 12/22/2024 18:25:58 12/23/19 25 12/22/2024 COMPL ETE BLOOD COUNT neutrophil,a bsolute 4.8 10*3/ uL 1.6-8. 4 normal Not Available [facility] [address] [place] [address], [address], 12/22/2024 18:25:58 12/23/19 25 12/22/2024 COMPL ETE BLOOD COUNT lymphocyte,a bsolute 1.8 10*3/ uL 0.4-5. 1 normal Not Available [facility] [address] [place] [address], [address], 12/22/2024 18:25:58 12/23/19 25 12/22/2024 COMPL ETE BLOOD COUNT monocyte,abs olute 0.3 10*3/ uL 0.0-1. 2 normal Not Available [facility] [address] [place] [address], [address], 12/22/2024 18:25:58 12/23/19 25 12/22/2024 COMPL ETE BLOOD COUNT eosinophil,a bsolute 0.1 10*3/ uL 0.0-0. 8 normal Not Available [facility] [address] [place] [address], [address], 12/22/2024 18:25:58 12/23/19 25 12/22/2024 COMPL ETE BLOOD COUNT basophil,abs olute 0.1 10*3/ uL 0.0-0. 3 normal Not Available [facility] [address] [place] [address], [address], 12/22/2024 18:25:58 12/23/19 25 12/22/2024 COMPL ETE BLOOD COUNT % neutrophils 67.1 % 42.0-7 8.0 normal Not Available [facility] [address] [place] [address], [address], 12/22/2024 18:25:58 12/23/19 25 12/22/2024 COMPL ETE BLOOD COUNT % lymphocytes 26.0 % 11.0-4 7.0 normal Not Available [facility] [address] [place] [address], [address], 12/22/2024 18:25:58 12/23/19 25 12/22/2024 COMPL ETE BLOOD COUNT % monocytes 4.9 % 0.0-11 .0 normal Not Available [facility] [address] [place] [address], [address], 12/22/2024 18:25:58 12/23/19 25 12/22/2024 COMPL ETE BLOOD COUNT % eosinophils 1.1 % 0.0-7. 0 normal Not Available [facility] [address] [place] [address], [address], 12/22/2024 18:25:58 12/23/19 25 12/22/2024 COMPL ETE BLOOD COUNT % basophils 0.9 % 0.0-3. 0 normal Not Available [facility] [address] [place] [address], [address], 12/22/2024 18:25:58 12/23/19 25 12/22/2024 COMPL ETE BLOOD COUNT nucleated red cells 0.0 % 0.0-0. 9 normal Not Available [facility] [address] [place] [address], [address], 12/22/2024 18:25:58 12/23/19 25 12/22/2024 COMPL ETE BLOOD COUNT nucleated RBCs, absolute 0.00 10*3/ uL not estab. normal Not Available [facility] [address] [place] [address], [address], 12/22/2024 18:25:58 12/23/19 25 12/22/2024 ESR, AUTOM ATED ESR, automated 33 mm 0-19 high Not Available [facility] [address] [place] [address], [address], 12/22/2024 20:51:48 12/23/19 25 12/22/2024 C REACT JUDE PROTE IN C reactive protein 0.64 mg/dL 0.00-0 .49 high Not Available [facility] [address] [place] [address], [address], 12/22/2024 22:07:17 12/23/19 25 12/22/2024 COMP. METAB OLIC PANEL glucose 78 mg/dL 74-100 normal Not Available [facility] [address] [place] [address], [address], 12/22/2024 22:07:18 12/23/19 25 12/22/2024 COMP. METAB OLIC PANEL blood urea nitrogen 11 mg/dL 6-20 normal Not Available [facility] [address] [place] [address], [address], 12/22/2024 22:07:18 12/23/19 25 12/22/2024 COMP. METAB OLIC PANEL creatinine 0.82 mg/dL 0.50-0 .95 normal Not Available [facility] [address] [place] [address], [address], 12/22/2024 22:07:18 12/23/19 25 12/22/2024 COMP. METAB OLIC PANEL BUN/creatini ne ratio 13 (calc ) 10-20 normal Not Available [facility] [address] [place] [address], [address], 12/22/2024 22:07:18 12/23/19 25 12/22/2024 COMP. METAB OLIC PANEL sodium 138 mmol/ L 136-14 5 normal Not Available [facility] [address] [place] [address], [address], 12/22/2024 22:07:18 12/23/19 25 12/22/2024 COMP. METAB OLIC PANEL potassium 4.0 mmol/ L 3.4-5. 0 normal Not Available [facility] [address] [place] [address], [address], 12/22/2024 22:07:18 12/23/19 25 12/22/2024 COMP. METAB OLIC PANEL chloride 104 mmol/ L 98-107 normal Not Available [facility] [address] [place] [address], [address], 12/22/2024 22:07:18 12/23/19 25 12/22/2024 COMP. METAB OLIC PANEL carbon dioxide 18 mmol/ L 22-31 low Not Available [facility] [address] [place] [address], [phone], 12/22/2024 22:07:18 12/23/19 25 12/22/2024 COMP. METAB OLIC PANEL anion gap 16 (calc ) 7-25 normal Not Available [facility] [address] [place] [address], [phone], 12/22/2024 22:07:18 12/23/19 25 12/22/2024 COMP. METAB OLIC PANEL calcium 9.2 mg/dL 8.6-10 .2 normal Not Available [facility] [address] [place] [address], [phone], 12/22/2024 22:07:18 12/23/19 25 12/22/2024 COMP. METAB OLIC PANEL total protein 7.7 g/dL 6.4-8. 3 normal Not Available [facility] [address] [place] [address], [phone], 12/22/2024 22:07:18 12/23/19 25 12/22/2024 COMP. METAB OLIC PANEL albumin 4.1 g/dL 3.5-5. 2 normal Not Available [facility] [address] [place] [address], [address], 12/22/2024 22:07:18 12/23/19 25 12/22/2024 COMP. METAB OLIC PANEL globulin 3.6 1.5-4. 5 normal Not Available [facility] [address] [place] [address], [address], 12/22/2024 22:07:18 12/23/19 25 12/22/2024 COMP. METAB OLIC PANEL albumin/glob ulin ratio 1.1 (calc ) 1.1-2. 5 normal Not Available [facility] [address] [place] [address], [address], 12/22/2024 22:07:18 12/23/19 25 12/22/2024 COMP. METAB OLIC PANEL bilirubin, total 0.3 mg/dL 0.1-1. 2 normal Not Available [facility] [address] [place] [address], [address], 12/22/2024 22:07:18 12/23/19 25 12/22/2024 COMP. METAB OLIC PANEL alkaline phosphatase 58 U/L 30-121 normal Not Available [facility] [address] [place], [address], 12/22/2024 22:07:18 12/23/19 25 12/22/2024 COMP. METAB OLIC PANEL AST 21 U/L 0-32 normal Not Available [facility] [address] [place], [address], 12/22/2024 22:07:18 12/23/19 25 12/22/2024 COMP. METAB OLIC PANEL ALT 16 U/L 0-33 normal Not Available [facility] [address] [place], [address], 12/22/2024 22:07:18 12/23/19 25 12/22/2024 COMP. METAB OLIC PANEL eGFR 89 >= 60 normal NOT E New calcu latio n for GFR (CKD- EPI 2020) is formu lated witho ut race adjus tment facto rs at the recom menda tion of the [employer] at[employer] and Ameri can Socie ty of Nephr ology . This calcu latio n has not been valid ated in pregn ant women . For pedia tric patie nts refer to https ://emerald monroy.cristin ocasio.o rg/pr ofess ional s/KDO QI/gf r_cal culat orPed Not Available [facility] [address] [place], [address], 12/22/2024 22:07:18 08/17/19 25 08/17/2024 XR, hand, 3 or more view [facility] [address] [place] [address] Patien t Name: COSMEGini Lopez t : 978 Patisigrid t 95 Orderi [facility] er: DAMON STEIN TRISTAN EXAM DATE: 2024 [...] Gabe strong MD on 025 12:06 PM [facility] [address], [address], 09/25/2024 23:01:28 08/17/19 25 08/17/2024 XR, sacro iliac joint (s), 3 or more view [address] [address] Patien t Name: SOURAV PÉREZ Patien t : 978 Patien t 95 Orderi ng [facility] er: DAMON STEIN TRISTAN EXAM DATE: [...] Gabe strong MD on 025 12:08 PM [email or web address] [facility] [address], [address], 09/25/2024 23:01:28 Result Notes None recorded. Procedures Surgical History Date Name Laterality Status Provider Name and Address Organization Details Recorded Time 5 colonoscopy completed [facility] 02/19/2025 08:44:54 Skyrizi Infusion completed Basil Gaines [facility] 11/02/2024 09:09:27 5 Skyrizi Infusion completed [facility] 10/05/2024 08:58:32 5 Skyrizi Infusion completed [facility] 09/07/2024 09:50:20 procedure on knee completed [facility] 08/17/2024 10:27:37 section completed [facility] 08/17/2024 10:27:45 Imaging Results None recorded. Procedure Notes None recorded. Medical Equipment None Reported. Allergies Allergen ID Allergen Name Allergen Category Reaction Reaction Severity Criticality Documentation Date Start Date Code Code System Note Provider Name and Address Organization Details Recorded Time 137382 Remicade medicatio n decreased blood pressure severe Not available 08/17/2024 43842 0 RxNorm vomit ting blood [facility] 10:24:41 Medications Name Sig Start Date Stop Date Status Note LastModified by Organization Details LastModified Time methotrex ate sodium 2.5 mg tablet Take 6 tablets every week by oral route. 2024 active Not Available Not Available Not Avai lable folic acid 1 mg tablet Take 1 tablet every day by oral route. 2024 active Not Available Not Available Not Avai lable rosuvasta tin 5 mg tablet Take 1 [...] mL (150 mg/mL) subcutane ous wearable injector active Not Available Not Available Not Available Vitals Date Recorded Body height Body mass index (BMI) Body weight Heart rate Oxygen saturation Oxygen saturation in Arterial blood by Pulse oximetry Systolic And Diastolic Provider Name and Address Organization Details Last Updated DateTime 5 154.94 cm 30.8 kg/m2 38615.5 6 g 88 /min 98 % 98 % 120/80 mm[Hg] Charity Adams [facility] 09:34:25 Date Recorded Body height Body mass index (BMI) Body weight Respiratory rate Heart rate Oxygen saturation Oxygen saturation in Arterial blood by Pulse oximetry Systolic And Diastolic Provider Name and Address Organization Details Last Updated DateTime 5 154.94 cm 32.1 kg/m2 79861.7 g 14 /min 92 /min 98 % 98 % 138/70 mm[Hg] [facility] 08:46:01 Social History Question Answer Notes LastModified by Organizat ion Details LastModified Time Tobacco Smoking Status Never Smoker [facility] 08/17/2024 10:27:10 What Was The Date Of Your Most Recent Tobacco Screening? 02/19/2025 Information not available 02/19/2025 Sex: Female Functional Status Question Answer Note [...] e 08/17/2024 09:12:39 Medical History Condition Response Diabetes N Bleeding Disorder N Arthritis Y Emphysema N Acid Reflux (GERD) N Heart Disease N Rheumatoid Arthritis N Hypertension N COPD N Asthma N Gynecological HistoryNo gynecological history recorded. Obstetrics History GPAL:G 0 P 0 0 0 0 Immunizations Vaccine Type Date Status Note Provider Nam e and Address Organization Details Recorded Time Hep A, adult 8 completed Not Available [facility] 02/19/2025 07:51:38 Hep A, adult 9 completed Not Available [facility] 02/19/2025 07:51:38 Influenza, split virus, quadrivalent, PF 0 completed Not Available [facility] 02/19/2025 07:51:38 COVID-19, mRNA, LNP-S, PF, 30 mcg/0.3 mL dose 1 completed Not Available [facility] 02/19/2025 07:51:38 COVID-19, mRNA, LNP-S, PF, 30 mcg/0.3 mL dose, lizzy-sucrose 2 completed Not Available [facility] 02/19/2025 07:51:38 COVID-19, mRNA, LNP-S, bivalent, PF, 30 mcg/0.3 mL dose 2 completed Not Available [facility] 02/19/2025 07:51:38 COVID-19, mRNA, LNP-S, PF, 50 mcg/0.5 mL 3 completed Not Available [facility] 02/19/2025 07:51:38 Tdap 3 completed Not Available [facility] 02/19/2025 07:51:38 Influenza, split virus, trivalent, preservative 4 completed Not Available [facility] 02/19/2025 07:51:38 Past Encounters Encounter ID Performer Location Encounter Start Date Encounter Closed Date Diagnosis/Indication Diagnosis SNOMED-CT Code Diagnosis ICD10 Code Diagnosis IMO Codes Diagnosis Note [id number] DAMON HERRERA MD RHEUMATOL [facility] [address] [place] [address] 08/17/2024 09:08:45 08/21/2024 04:14:38 Crohn's disease 08918796 K50.90 + EDUARDO 1:160, - RF, - [...] hands Long-term current use of drug therapy 941743257 Z79.899 - labs every 6 months on [...] and shingles vaccines. No live vaccines. Fatigue 27821390 R53.83 - Address via management of primary conditions . Monitor response to new treatment regimen. 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 Anti-nucle ar factor detected 662686658 R76.8 - positive EDUARDO possibly linked to Crohn s disease [id number] DAMON HERRERA MD RHEUMATOL [facility] [address] [place] [phone] 09/07/2024 08:09:28 09/07/2024 09:58:17 Crohn's disease 29854736 K50.90 [id number] [place] [address] [place] [phone] 10/05/2024 07:32:32 10/05/2024 09:06:33 Crohn's disease 27970986 K50.90 [id number] [place] [address] [place] [id number] 11/02/2024 07:25:15 11/02/2024 09:11:09 Gastrointestinal Crohn's disease 637848513 K50.90 [id number] DAMON HERRERA MD RHEUMATOL [facility] [address] [place] [id number] 11/17/2024 09:08:54 11/18/2024 04:50:32 Crohn's disease 71408198 K50.90 + EDUARDO 1:160, - RF, - [...] 8. Long-term current use of drug therapy 362627983 Z79.899 - labs every 6 months on [...] live vaccines. Enteropath ic arthritis of hand 6233751264 25407 M07.649 - immunosupp ression as above- Consider methotrexa te adjunct if symptoms persist Anti-nucle ar factor detected 733994498 R76.8 - positive EDUARDO possibly linked to Crohn s disease [id number] DAMON HERRERA MD RHEUMATOL [facility] [address] [place] [id number] 02/19/2025 07:50:43 02/20/2025 15:42:06 Crohn's disease 06899805 K50.90 + EDUARDO 1:160, - RF, - CCP Previous Rx: ?azathiopr ine, 6-MP, budesonide , steroids, Humira, Remicade (infusion reaction) XR of the SI joints with mild degenerati ve changes. 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 We discussed that these medication s can cause reactivati on of tuberculos is or viral hepatitis and we need to check these prior to starting medication . We discussed appropriat e immunizati ons including flu, pneumonia, and shingles vaccines. No live vaccines.- We discussed the possible side effects of methotrexa te including, but not limited to: oral ulcers, nausea, diarrhea, rash, increased infection risk, bone marrow suppressio n, hepatitis, pulmonary toxicity. We discussed the need to avoid alcohol and to have regulatory lab monitoring done while taking methotrexa te. We discussed that live virus vaccines are contraindi cated while taking methotrexa te. Enteropath ic arthritis of hand 4904757749 [address]4650 M07.649 - immunosupp ression as above Anti-nucle ar factor detected 469111943 R76.8 - positive EDUARDO possibly linked to Crohn s disease Health Concerns Section Related Observation LastModified by Organization Detai ls LastModified Time None Recorded Concern Status LastModified by Organization Details LastModified Time None Recorded Advance Directives Directive None Recorded Payers Insurance Date Sequence Insurance Name Policy Number Policy Diaz Covered Member ID Diaz Member ID Guarantor Name 02/16/2025 1 [facility] [id number] W Michelle Pérez [id number] Michelle Pérez 10/11/2024 ABBVIE Michelle Pérez [id number] Michelle Pérez 08/24/2024 SKYRIZI COMPLETE Michelle Pérez [id number] Michelle Pérez Notes Date Note Type Note Provider Name and Address Organization Details Recorded Time 11/17/2024 text/html ROS as noted in the [...] medication, or hospitalizations. She a shoulder in 4926-3213 and experiences chronic shoulder pain. Additionally, she reported some past ocular symptoms, including eye sensitivity and swelling, and fatigue. Previous Rx: Humira (quit working) DAMON HERRERA MD [address] [place] [address], [phone], [facility] 11/17/2024 10:23:59 02/19/2025 text/html ROS as noted in the HPI Michelle Pérez is a 44-year-old female presenting with joint pain and positive anti-nuclear antibody (EDUARDO). She has Corhn's disease and she is currently on Skyrizi every 8 weeks. She is still having a lot of joint pain.She had a rash on her ankles a couple of months ago.Keeps gaining weight. Crohn's is doing well until Wednesday where she was only passing mucus x 4. Hasn't done that in a long time. No blood. No pain. Colonoscopy was middle of December and looked fine.Hands, feet. Had an X ray on the feet and it showed bone spurs.A couple months ago had swelling about 2-3 inches over the top of the ankles and they thought she had some dermatitis.Pictures of enthesitis. No infections, problems with the medication, or hospitalizations. DAMON HERRERA MD [address] [place] [address], [phone], [facility] 02/19/2025 14:03:51 OBGyn Episode No OBEpisode recorded.
--- OUTSIDE RECORDS SUMMARY | 2025-05-07 07:09 | XMS_ITS | Clinical Summary ---
Author Organization [facility] Address [address] [place] [id number] Care Team Providers Care Drafter Civil (Cad) Name Role Phone System, Provider Not In [...] patient's age to complete this topic Insurance [facility] Care Teams Drafter Civil (Cad) Relationship Specialty Start Date End Date System, Provider Not In PCP - General 07/13/13
--- OUTSIDE RECORDS SUMMARY | 2025-05-07 07:09 | XMS_ITS | Data Portability ---
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 General Stress Level Medium Information not available 12/08/2022 Do You Use Sunscreen Routinely? Yes [email or web address] Information not available 09/24/2016 Has Tobacco Cessation Counseling Been Provided? Yes Information not available 06/01/2023 On What Date Was Tobacco Cessation Counseling Provided? 02/28/2025 [email or web address] Information not available 02/28/2025 Do You Have Difficulty Walking Or Climbing [...] used smokeless tobacco? Never used smokeless tobacco [email or web address] Information not available 10/09/2019 Are you currently employed? Yes [email or web address] Information not available 09/24/2016 Do you have transportation difficulties? No Information not available 12/08/2022 Are you able to care for yourself independently? Yes [email or web address] Information not available 10/10/2021 Do you have difficulty dressing, bathing, grooming, or toileting? No Information not available 12/08/2022 Do you or have you ever used e-cigarettes or vape? Never used electronic cigarettes [email or web address] Information not available 10/09/2019 What is your exercise level? Occasional [email or web address] Information not available 09/24/2016 Do you use any illicit or recreational drugs? No Information not available 12/08/2022 Do you or have you ever used any other forms of tobacco or nicotine? No Information not available 12/08/2022 What is your level of alcohol consumption? None Information not available 09/24/2016 What is your status? Not Information no t available 12/08/2022 Are you able to walk independently without assistance or assistive devices? [email or web address] Information not available 12/08/2022 Do you have difficulty doing errands alone? 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 [id number] [email or web address] Information not available 02/28/2025 Do you have difficulty concentrating, remembering or making decisions? No Information no t available 12/08/2022 Family History Relationship Description Onset Age of this Age Resolved Age Notes LastModified by Organization Details LastModified Time Maternal Aunt Malignant neoplasm of breast 80 Not available 2022 09:13:01 Maternal Aunt Kidney disease [email or web address] Not available 2016 11:18:55 Paternal Grandmother Malignant neoplasm of breast 70 Not available 2022 09:13:01 Unspecified Relation Malignant neoplasm of colon mggm [email or web address] Not available 2016 11:17:40 Unspecified Relation Malignant neoplasm of breast cousin - 40's anothe r cousin in 50 [email or web address] Not available 09/24/2016 11:18:12 Paternal Grandfather Neoplasm of stomach [email or web address] Not available 2024 14:30:39 Maternal Uncle Heart disease Not available 2022 09:13:01 Father Cerebrovascu lar accident 62 Not available 09:13:01 Paternal Aunt Malignant neoplasm of breast Not available 2022 09:13:01 Paternal Uncle Heart disease 56 [email or web address] Not available 2024 14:30:39 Medical History Condition Response Pancreatitis N Other [...] Obesity N Vision or Eye Problems N Restless Leg Syndrome N Arthritis Y Infertility N Polyps N Carpal Tunnel N Acid Reflux (GERD) N Cancer N Stroke N Varicosities N Tendonitis N Crohn's Disease Y Hypercholesterolemia N Skin Cancer N Fibromyalgia N Headaches N Anal Fissure N Irritable Bowel Syndrome N Kidney Disease N Heart Problems N [...] Cancer N Hernia N Plantar Fasciitis N Lung Disease N Hypothyroidism N Defects or Inherited Disease N Breast Problem N Ovarian Cyst N Anesthesia Complications N Testosterone Deficiency N Interstitial Cystitis N Congenital Anomalies N Hypoglycemia N Blood clot N Vitamin D Deficiency N Cellulitis N Endometriosis N Fracture N Bladder or Kidney Problems N Colorectal Cancer N Panic Disorder N [...] colitis N Cerebrovascular Disease N Depression N Guillain-[place] N Sleep Apnea N Aneurysm N Bronchitis N Heart Disease N Hypertension N Pre-Eclampsia N Suicidal Ideation N Osteoporosis N Gynecological History Statement/Question Response Date of Last Mammogram 02/05/2025 Flow Moderate Date of LMP 04/28/2024 Post Menopausal Bleeding N STIs/STDs N Last Lipids Family Doc Date of Last Colonoscopy 01/05/2025 Last Ovarian U/S Screening never Desired Control Method Sterilizati on Abnormal Pap Y On BCP's at Conception? Y HPV Vaccine N Duration of Flow (days) 4 Age at Menarche 7 Current Control Method Tubal Ligat ion Age at First Child 33 Last Annual Exam/Provider 02-28-25 Frequency of Cycle (Q days) 21 Most Recent Bone Density Sexually Active? Y Date of Last Cervical Culture 12/24/2014 Menses Monthly N Date of Last Pap Smear 02/28/2025 Sexual Problems? N LMP Approximate 06/04/2021 Hormone Replacement Therapy N Obstetrics History GPAL:G 1 P 1 0 0 0 Type Value Full Term 1 Living 0 Total 1 Immunizations Vaccine Type Date Status Note Provider Nam e and Address Organization Details Recorded Time Influenza, split virus, trivalent, preservative 4 completed Not Available [facility] 02/28/2025 14:30:46 pneumococcal, unspecified formulation 1 completed Not Available [facility] 06/01/2023 14:25:22 Influenza, split virus, quadrivalent, preservative 1 completed Not Available [facility] 06/01/2023 14:25:22 COVID-19, mRNA, LNP-S, PF, 30 mcg/0.3 mL dose 0 completed Not Available [facility] 06/01/2023 14:25:22 COVID-19, mRNA, LNP-S, PF, 30 mcg/0.3 mL dose 1 completed Not Available [facility] 06/01/2023 14:25:22 COVID-19, mRNA, LNP-S, PF, 30 mcg/0.3 mL dose 1 completed Guadalupe Almendarez, GORDY [address], [place], [address], [place] - [facility] 12/08/2022 09:14:01 COVID-19, mRNA, LNP-S, PF, 30 mcg/0.3 mL dose, lizzy-sucrose 2 completed Guadalupe Almendarez, [employer]RAW[employer] [address], [place], [address], [place] [facility] 12/08/2022 09:14:01 COVID-19, mRNA, LNP-S, bivalent, PF, 30 mcg/0.3 mL dose 2 completed Guadalupe Almendarez, [employer]RAW[employer] SU[employer] [address], [place], [address], [place] [facility] 12/08/2022 09:14:01 Hep A, adult 9 completed Guadalupe Almendarez, [employer]RAW[employer] SU[employer] [address], [place], [address], [place] [facility] 12/08/2022 09:14:01 Hep A, adult 8 completed Guadalupe Almendarez, DRAW[employer] SUPER[employer] [address], [place], [address], [place] [facility] 12/08/2022 09:14:01 Influenza, split virus, quadrivalent, PF 0 completed Guadalupe Almendarez, DRAWING [employer] SUPER[employer]OR [address], [place], [address], [place] [facility] 12/08/2022 09:14:01 COVID-19, mRNA, LNP-S, PF, 50 mcg/0.5 mL 3 completed Erma ge [facility] 08/31/2023 09:14:31 Tdap 3 completed Erma ge [facility] 08/31/2023 09:14:31 Past Encounters Encounter ID Performer Location Encounter Start Date Encounter Closed Date Diagnosis/Indication Diagnosis SNOMED-CT Code Diagnosis ICD10 Code Diagnosis IMO Codes Diagnosis Note [id number] [facility] [address] [place] [id number] 09/15/2007 00:00:00 [id number] [facility] [address] [place]IANO [place] [id number] 10/23/2008 00:00:00 [id number] [facility] [address] [place] [address] 10/23/2009 00:00:00 [id number] [facility] [address] [address] [address] 08/17/2006 00:00:00 [id number] [facility] [address] [place] [address] [address] 09/15/2007 00:00:00 [id number] [facility] [address] [address] 10/24/2010 00:00:00 [id number] [facility] [address] [address] 10/19/2011 00:00:00 [id number] [facility] [address] [address] [address] 10/20/2012 00:00:00 [id number] [facility] [address] [address] [address] 12/24/2014 00:00:00 [id number] [facility] [address] [address] 08/22/2015 00:00:00 [id number] GORDY Lin [employer] TE[employer] [facility] [place] [id number] 09/25/2016 08:46:51 09/25/2016 09:57:36 Routine gynecologic examination done [id number] 9101 Z01.419 Examinatio n of blood pressure 672299518 Z01.30 BP goal < 140/90 Depression screening 171 767705 Z13.89 Diet education 41918128 Z71.3 6896-5156 calorie diet recommende d with emphasis on low saturated fat, low carbohydra te, and adequate protein intake. She declines dietary consult. Counseling 393746236 Z71 .9 Exercise counsellin simone. Patient encouraged to exercise 30 minutes 5 days a week. Vaccine de clined by patient 1986540080 02 Z28.21 Surveillan ce of oral contraception done 1407537699 75334 Z30.41 Screening for malignant neoplasm of cervix 073950782 Z12.4 History of tubal ligation 540600640 Z98.51 Obese 409856128 E66.9 Body mass index 30+ - obesity 034069289 Z68.31 [id number] GORDY Lin [employer] TE[employer] [address] [place] [address] [place] [id number] 10/01/2017 08:53:29 10/01/2017 09:39:16 Routine gynecologic examination done 8822772553 9101 Z01.419 Examinatio n of blood pressure 236187256 Z01.30 BP goal < 140/90 Depression screening 171 227503 Z13.89 Diet education 40721191 Z71.3 8943-9046 calorie diet recommende d with emphasis on low saturated fat, low carbohydra te, and adequate protein intake. She declines dietary consult. Counseling 507400868 Z71 .9 Exercise counsellin g. Patient encouraged to exercise 30 minutes 5 days a week. Vaccine de clined by patient 6680895298 02 Z28.21 Screening for malignant neoplasm of cervix 928187115 Z12.4 Z11.51 Z11.8 Body mass index 30+ - obesity 830690266 Z68.30 History of tubal ligation 107492725 Z98.51 Crohn's disease 77713555 K50.90 Surveillan ce of oral contraception done 7220841120 40446 Z30.41 [id number] GORDY Lin [employer] TE[employer] [address] [place] [address] [place] [id number] 10/03/2018 10:08:52 10/03/2018 11:06:11 Routine gynecologic examination done 0933062633 9101 Z01.419 Examinatio n of blood pressure 807604937 Z01.30 BP goal < 140/90 Depression screening 171 085833 Z13.31 Diet education 91725425 Z71.3 0980-9776 calorie diet recommende d with emphasis on low saturated fat, low carbohydra te, and adequate protein intake. She declines dietary consult. Counseling 518274284 Z71 .82 Exercise counsellin g. Patient encouraged to exercise 30 minutes 5 days a week. Screening for malignant neoplasm of cervix 424625646 Z12.4 Z11.8 Surveillan ce of oral contraception done 7595188883 34255 Z30.41 Crohn's disease 29994411 K50.90 Body mass index 30+ - obesity 737756275 Z68.30 Screening mammography 24 186711 Z12.31 [id number] GORDY Lin [employer] TE[employer] [address] [place] [address] [place] [id number] 10/09/2019 14:28:44 10/09/2019 15:39:01 Routine gynecologic examination done 1469538037 9101 Z01.419 Examinatio n of blood pressure 103171510 Z01.30 BP goal < 140/90 Depression screening 171 973886 Z13.31 Diet education 63857055 Z71.3 4784-9180 calorie diet recommende d with emphasis on low saturated fat, low carbohydra te, and adequate protein intake. She declines dietary consult. Counseling 388066695 Z71 .82 Exercise counsellin g. Patient encouraged to exercise 30 minutes 5 days a week. Screening for malignant neoplasm of cervix 534599777 Z12.4 Z11.8 Screening mammography 24 751652 Z12.31 Surveillan ce of oral contraception done 0222627058 64370 Z30.41 for dysmenorrh ea History of dysplasia of cervix 253510336 Z87.410 Crohn's disease 65529691 K50.90 Body mass index 30+ - obesity 129427596 Z68.32 History of tubal ligation 458144982 Z98.51 [id number] GORDY Lin [employer] TE[employer] [address] [place] [address] [place] [id number] 10/11/2020 08:46:40 10/11/2020 09:19:13 Routine gynecologic examination done 1669266609 9101 Z01.419 Examinatio n of blood pressure 934757934 Z01.30 BP goal < 140/90 Depression screening 171 726528 Z13.31 Diet education 44368928 Z71.3 6171-8356 calorie diet recommende d with emphasis on low saturated fat, low carbohydra te, and adequate protein intake. She declines dietary consult. Counseling 191639085 Z71 .82 Exercise counsellin g. Patient encouraged to exercise 30 minutes 5 days a week. Screening for malignant neoplasm of cervix 225441637 Z12.4 Z11.8 Crohn's disease 46929765 K50.90 Surveillan ce of oral contraception done 8585621186 84537 Z30.41 for dysmenorrh ea History of tubal ligation 190301059 Z98.51 Screening mammography 24 719069 Z12.31 History of dysplasia of cervix 960277380 Z87.410 Body mass index 25-29 - overweight 301928030 Z68.29 [id number] GORDY Lni CALL C[employer] TE[employer] [address] [place] [address] [place] [id number] 10/10/2021 09:57:53 10/10/2021 11:05:23 Routine gynecologic examination done 6937249736 9101 Z01.419 Examinatio n of blood pressure 219111860 Z01.30 BP goal < 140/90 Depression screening 171 437970 Z13.31 Diet education 03144560 Z71.3 2142-9873 calorie diet recommende d with an emphasis on reducing sugar and refined carbohydra elvin, avoiding highly processed foods and decreasing saturated fats. She declines dietary consult. Counseling 315632614 Z71 .82 Exercise counseltara nichols. Patient encouraged to exercise 30 minutes 5 days a week. Screening mammography 24 437648 Z12.31 Screening for malignant neoplasm of cervix 886426452 Z12.4 Z11.8 Surveillan ce of oral contraception 807928798 Z30.41 Body mass index 30+ - obesity 716564600 Z68.30 History of tubal ligation 782117295 Z98.51 History of dysplasia of cervix 498513579 Z87.410 Crohn's disease 45938410 K50.90 [id number] GORDY Lin [employer] TE[employer] [address] [place] [address] [place] [id number] 02/27/2022 10:34:22 02/27/2022 11:19:31 Menorrhagia 471093030 N92.0 Abnormal u terine bleeding 4492240907 9100 N93.9 Body mass index 30+ - obesity 867620156 Z68.30 [id number] GORDY Lin CALL C[employer] TE[employer] [address] [place] [address] [place] [id number] 12/08/2022 08:43:17 12/08/2022 09:30:48 Routine gynecologic examination done 2540784799 9101 Z01.419 Examinatio n of blood pressure 710495557 Z01.30 BP goal < 140/90 Depression screening 171 203347 Z13.31 PHQ-9 score of 0. Diet education 73580455 Z71.3 2496-0724 calorie diet recommende d with an emphasis on reducing sugar and refined carbohydra elvin, avoiding highly processed foods and decreasing saturated fats. She declines dietary consult. Counseling 636542480 Z71 .82 Exercise counsellin g. Patient encouraged to exercise 30 minutes 5 days a week. Screening for malignant neoplasm of cervix 574622311 Z12.4 Z11.8 Body mass index 25-29 - overweight 567123586 Z68.28 Screening for malignant neoplasm of breast 984932954 Z12.39 Crohn's disease 87551266 K50.90 History of tubal ligation 778760248 Z98.51 History of dysplasia of cervix 272529422 Z87.410 Long-term current use of immunosuppressive drug 864256705 Z79.60 Humira for Crohn's [id number] GORDY Lin CALL CENTER TEAM LEADER [address] [facility] [place] [address] 01/18/2024 15:27:12 01/18/2024 16:46:10 Routine gynecologic examination done 6344080374 9101 Z01.419 Examinatio n of blood pressure 916741737 Z01.30 BP goal < 140/90 Depression screening 171 935079 Z13.31 PHQ-9 score of 0. Diet education 69077670 Z71.3 0989-2535 calorie diet recommende d with an emphasis on reducing sugar and refined carbohydra elvin, avoiding highly processed foods and decreasing saturated fats. She declines dietary consult. Counseling 798705170 Z71 .82 Exercise counsellin g. Patient encouraged to exercise 30 minutes 5 days a week. Screening for malignant neoplasm of cervix 138731417 Z12.4 Z11.51 Z11.8 Z11.3 Screening for malignant neoplasm of breast 282184957 Z12.39 Oral contr aceptive prescribed 514860997 Z30.011 History of tubal ligation 681220103 Z98.51 History of dysplasia of cervix 107227270 Z87.410 Surveillan ce of oral contraception 317598840 Z30.41 Crohn's disease 23837572 K50.90 on Humira Long-term current use of immunosuppressive drug 247616522 Z79.60 Humira for Crohn's Body mass index 30+ - obesity 799278827 Z68.30 Obesity 696082551 E66.9 [id number] Guadalupe Almendarez APRN [place] CALL CENTER TEAM [employer]ER [address] [place] [address] [place] [address] 06/01/2023 14:24:43 06/01/2023 15:14:54 Oral contraceptive prescribed 102905474 Z30.011 Crohn's disease 81088810 K50.90 Menorrhagia 534017547 N9 2.0 [id number] Guadalupe Almendarez APRN [place] [employer] TE[employer] [address] [place] [address] [place] [id number] 08/31/2023 09:06:06 08/31/2023 09:33:25 Oral contraceptive prescribed 268781529 Z30.011 Irregular periods 225857 07 N92.6 Body mass index 25-29 - overweight 467042496 Z68.29 History of tubal ligation 104509325 Z98.51 Crohn's disease 99887296 K50.90 on Humira [id number] Guadalupe Almendarez APRN [place] [employer] TE[employer] [address] [place] [address] [place] [address] 02/28/2025 14:30:08 02/28/2025 15:38:23 Routine gynecologic examination done 6715378022 9101 Z01.419 Examinatio n of blood pressure 109242659 Z01.30 BP goal < 140/90 Depression screening 171 306779 Z13.31 PHQ-9 score of 0. Diet education 34563568 Z71.3 2530-2547 calorie diet recommende d with an emphasis on reducing sugar and refined carbohydra elvin, avoiding highly processed foods and decreasing saturated fats. She declines dietary consult. Counseling 466889425 Z71 .82 Exercise counsellin g. Patient encouraged to exercise 30 minutes 5 days a week. Screening for malignant neoplasm of cervix 366058388 Z12.4 Z11.51 Z11.8 Z11.3 History of tubal ligation 059973063 Z98.51 215961 Oral contr aceptive prescribed 275252768 Z30.011 Obese class I 9447085086 57617 E66.811 Z68.32 1934691 Crohn's disease 79374285 K50.90 Long-term current use of immunosuppressive drug 175363748 Z79.60 Skyrizi and methotrexa te for Crohn's Health Concerns Section Related Observation LastModified by Organization Detai ls LastModified Time None Recorded Concern Status LastModified by Organization Details LastModified Time None Recorded Advance Directives Directive N: Payers Insurance Date Sequence Insurance Name Policy Number Policy Diaz Covered Member ID Diaz Member ID Guarantor Name 10/11/2020 1 [facility] [id number] Michelle Jose C [id number] Michelle Jose C 03/08/2025 1 [place] [id number] W Michelle Pérez [id number] Michlele Pérez Notes Date Note Type Note Provider Name and Address Organization Details Recorded Time 12/08/2022 text/html Annual - MOBRepo rted by [...] per patient during visit intake. Guadalupe Almendarez, DRAWING [employer] SUPERVISOR [address], [place], [address], [place] [facility] 12/08/2022 19:25:01 06/01/2023 text/html Michelle is here with c/o heavy, bothersome menstrual bleeding. She is planning a trip in October/November and would like to avoid bleeding during that time. She is s/p tubal ligation for contraception. Guadalupe Almendarez, DRAW[employer] SUPERVISOR [address], [place], [address], [place] [facility] 06/01/2023 22:00:27 08/31/2023 text/html OCP CheckReporte d by PatientHPIFor context, patient reportsnumber of ocp cycles completed:3andreason for starting ocps:irregular menses. For associated symptoms, patient reportsregular menses,no btb menses, andno side effects. Mihcelle is here to follow up on irregular bleeding and starting LoLoestrin. Guadalupe Almendarez, DRAWING K[employer] SUPERVISOR [address], [place], [address], [facility] - [facility] 08/31/2023 09:37:59 01/18/2024 text/html Annual [...] per patient during visit intake. Guadalupe Almendarez, DRAWING K[employer] SUPERVISOR [address], [place], [address], [facility] - [facility] 01/18/2024 17:03:43 02/28/2025 text/html Annual - MOBRepo rted by PatientHistoryFor history, patient reportslast annual exam: 2023,no gynecologic complaints, andno change in interval history.ContraceptionF or current contraception, patient reportssatisfied with current contraception,oral contraceptives, andtubal ligation.Preventative measuresFor preventive measures, patient reportsmammogram performed within the past year,up to date on colonoscopy screening,all immunization are current,encourage self breast examination,encourage regular exercise,encourage no tobacco use, andfollowed with yearly pap smears. The patient is a 44 year old reproductive age White female who presents as a/an established patient for annual gynecologic wellness exam. She denies gynecologic concerns. See above notations for significant gynecologic history of present illness as reported per patient during visit intake. Guadalupe [place], DRAWING KILN SUPERVISOR [address], [place], [address], [place] - [facility] 02/28/2025 22:02:37 OBGyn Episode Ob Episode Information Episode Created Date Number of Fetuses Patient Bloodtype Patient rh Status Prepregnancy Weight lbs Domestic Partner Domestic Partner Phone Father Name Taker Off Hemp Fiber Status 10/11/19 22 1 CLOSED Fetus Data First Name Last Name Admitted to NICU Weight (g) Sex Living Outcome Pediatric Complications Fetus ID Race Codes Race Delivery Type 2919.77 1704 M Full Term 00216 Tyson Calculation Initial Tyson Date Initial Exam [...] Discharge Date Comments 4 [facility], cerebral palsy, 03-09-2019 at age 3 Discharge Information Feeding Method Contraceptive Method Maternal HG B and HCT Levels
[2025-05-07 07:57] LABS: Hematocrit 38.6 % (37.0-47.0); Hemoglobin 12.6 g/dL (12.2-16.2); Immature Granulocytes % 0.2 %; Mean Corpuscular HGB Conc 32.6 g/dL (31.8-35.4); Mean Corpuscular Hemoglobin 30.7 pg (27.0-31.2); Mean Corpuscular Volume 93.9 fl (81-99); Nucleated Red Blood Cells % 0 %; Platelet Count 335 K/mm3 (142-424); Red Blood Count 4.11 M/mm3 (4.20-5.40); Red Cell Distribution Width-SD 43.1 fL; White Blood Count 5.6 K/mm3 (4.8-10.8)
[2025-05-07 09:11] LABS: Alanine Aminotransferase 23 U/L (12-78); Albumin Level 4.0 g/dl (3.5-5.0); Albumin/Globulin Ratio 1.2 (1.1-1.8); Alkaline Phosphatase 61 U/L (38-126); Anion Gap 10.1 mEq/L (5-15); Aspartate Amino Transferase 30 U/L (14-36); Bilirubin,Total 0.5 mg/dl (0.2-1.3); Blood Urea Nitrogen 9 mg/dl (7-17); Calcium 9.3 mg/dl (8.4-10.2); Carbon Dioxide 25 mmol/L (22.0-30.0); Chloride 104 mmol/L (98-107); Creatinine,Serum 0.90 mg/dl (0.52-1.04); Estimated Glomerular Filt Rate 67 ml/min (>60); GFR (African American) 82 ML/MIN (>60); Globulin 3.3 g/dL (1.3-3.2); Glucose 94 mg/dl (74-100); Potassium 4.1 mmoL/L (3.5-5.1); Sodium 135 mmol/L (136-145); Total Protein,Serum 7.3 g/dl (6.3-8.2)
[2025-05-07 09:19] LABS: C-Reactive Protein 8.6 mg/L (0-4)
== END 2025-05-07 23:59 | disposition home or self-care (01) ==
LOC: LAB 07:06
PROVIDERS: PCP Nurse Practitioner Family; Visit Provider Internal Medicine Rheumatology
DX: Z79.899 Other long term (current) drug therapy (principal)
CPT/HCPCS: 36415; 80053; 85025; 85651; 86140